=== PATIENT | female | born 1955 | race Caucasian/White ===

== ENCOUNTER 2017-02-25 16:20 | Inpatient (IN) | payer MEDICAID ==
[2017-02-25] MEDS ORDERED: NS 0.9% 1000 ML* 1,000 ML IV ONE (16:25)
[2017-02-25 16:48] LABS: Hematocrit 23 % (35-47); Mean Corpuscular HGB Conc 30 g/dl (31-36); Mean Corpuscular Hemoglobin 24 pg (27-31); Mean Corpuscular Volume 80 fL (80-97); Mean Platelet Volume 9 um3 (7.4-10.4); Red Blood Count 2.93 10^6/ul (4.0-5.4); Red Cell Distribution Width 15 % (10.5-15); White Blood Count 15.7 10^3/ul (3.5-10.8)
[2017-02-25 16:59] LABS: PCO2 Arterial 67 mmHg (35-45)
[2017-02-25 17:02] LABS: ALT 13 U/L (7-52); AST 15 U/L (13-39); Albumin 3.5 g/dL (3.2-5.2); Alkaline Phosphatase 58 U/L (34-104); Anion Gap 6 mmol/L (2-11); BUN/Creatinine Ratio 21.8 (8-20); Blood Urea Nitrogen 12 mg/dL (6-24); CO2 Carbon Dioxide 31 mmol/L (22-32); Calcium 8.2 mg/dL (8.6-10.3); Chloride 96 mmol/L (101-111); Creatine Kinase 36 U/L (10-223); EGFR African American 143.6 (>60); EGFR Non-African American 111.6 (>60); Globulin 2.5 g/dL (2-4); Glucose 162 mg/dL (70-100); Magnesium 1.7 mg/dL (1.9-2.7); Potassium 3.4 mmol/L (3.5-5.0); Sodium 133 mmol/L (133-145)
--- NOTE | 2017-02-25 17:11 | RAD ---
INDICATION: Syncope. COMPARISON: There are no prior studies available for comparison. TECHNIQUE: 2 portable films of the chest were obtained. FINDINGS: The heart appears moderately enlarged. The lungs are clear. No pleural effusion is seen. IMPRESSION: CARDIOMEGALY.
[2017-02-25 17:15] LABS: Alcohol < 10 mg/dL (<10)
--- NOTE | 2017-02-25 17:22 | RAD ---
INDICATION: Syncope. COMPARISON: There are no prior studies available for comparison. TECHNIQUE: Contiguous axial sections of the brain were obtained from the skull base to the vertex without contrast. FINDINGS: The ventricles, cisterns and sulci are within normal limits. No significant focal abnormality or mass effect is seen. There is no evidence for hemorrhage. No significant focal osseous abnormality is seen. The visualized portion of the paranasal sinuses and mastoid air cells appear clear. IMPRESSION: NO EVIDENCE FOR ACUTE INTRACRANIAL ABNORMALITY.
[2017-02-25 17:25] LABS: TSH (Thyroid Stimulating Horm) 0.55 mcIU/mL (0.34-5.60)
[2017-02-25] MEDS ORDERED: Magnesium Sulfate 1 GM IV* 1 GM/100 ML BAG IV ONE (17:46)
[2017-02-25 17:55] LABS: Venous Bicarbonate HCO3 28.9 mmol/L (24-28)
[2017-02-25 17:57] LABS: Ammonia 30 mol/L (16-53)
[2017-02-25 18:02] LABS: B Type Natriuretic Peptide 94 pg/mL
[2017-02-25] MEDS: KCL 20 MEQ/100 ML IVPREMIX* 20 MEQ/100 ML BAG IV SCH ×2 (20:26→22:29)
[2017-02-25] MEDS: NS 0.9% 1000 ML* 1,000 ML IV SCH (20:26)
[2017-02-25 21:14] LABS: Urine Bacteria Absent (Absent); Urine Bilirubin Negative (Negative); Urine Glucose Negative (Negative); Urine Nitrite Negative (Negative)
[2017-02-25 21:27] LABS: Benzodiazepine Urine Screen None Detected (None Detect)
[2017-02-25] MEDS: Metoprolol Tartrate TAB* 50 mg PO SCH (21:43)
[2017-02-25] MEDS: Famotidine IV* 10 MG/ML 2 ML (20 mg) IV SCH (21:50)
--- NOTE | 2017-02-25 21:56 | HP ---
CC: Dr. Hernandez * HISTORY AND PHYSICAL: DATE OF ADMISSION: 02/25/17 PRIMARY CARE PHYSICIAN: Dr. Hernandez CHIEF COMPLAINT: Syncope. 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 She stated that with her bowel movements, she would have bright red blood up to several times a day. Today, when she got up to walk to the bathroom, she started getting dizzy. She called her son who was in the apartment to help her and he lowered her to the floor; subsequently she lost consciousness for a few seconds. She denies any shortness of breath or chest pain. When she came into the ED, she was hypoxemic and required 5 L of oxygen via nasal cannula. Her ABG showed respiratory acidosis. Her hemoglobin was 7 and she was heme-positive stool. She is going to be admitted to the intensive care unit with a diagnosis of anemia, GI bleed, respiratory acidosis. PAST MEDICAL HISTORY: 1. Hypertension. 2. History of hyperthyroidism as per patient. 3. History of tachycardia due to above. 4. COPD, oxygen dependent on 2 L. 5. History of status post appendectomy. 6. History of GI bleed at [facility] in 2016 with colonoscopy, which result the patient does not recall. MEDICATIONS: Include: 1. [place] 5/325 mg 1 tablet up to 4 times a day p.r.n. 2. Furosemide 40 mg daily. 3. Metoprolol tartrate 50 mg b.i.d. 4. Diltiazem ER 360 mg daily. ALLERGIES: No known drug allergies. FAMILY HISTORY: Mother and dad with history of heart disease late in life. They both in their 80s. SOCIAL HISTORY: The patient has a history of 45-pack year smoking, she quit in 2013. She denies any alcohol or drug use. She lives alone and her daughter, Rain Pickett, is her surrogate. Rain's phone number is [phone]. REVIEW OF SYSTEMS: Please see history of present illness. The patient lives alone. Ambulates without support. She had no problems with recent shortness of breath or chest pain. She denies any abdominal pain. All the remaining 14 systems were reviewed with the patient and were otherwise negative. PHYSICAL EXAMINATION GENERAL: The patient is a very pleasant 61-year-old morbidly obese female who is in no acute distress. The patient is alert, awake, and oriented x3. VITAL SIGNS: Blood pressure 103/52, heart rate of 67 and regular, respiratory rate 20, oxygen saturation 91% on 5 L oxygen nasal cannula, temperature 97.1. HEENT: Head atraumatic, normocephalic. Eyes: Pupils equal, reactive to light and accommodation. Oropharynx clear. Mucosa moist. NECK: Supple. No JVD. No bruits bilaterally. RESPIRATORY: Clear to auscultation bilaterally. CARDIOVASCULAR: Regular rate and rhythm. No murmur. ABDOMEN: Soft, nontender. Bowel sounds present in all 4 quadrants. EXTREMITIES: There is trace bilateral pedal edema. Pulses are +2 bilaterally. No clubbing or cyanosis. NEUROLOGIC EVALUATION: Speech clear. Cranial nerves II through XII are grossly intact. Motor strength is 5/5 bilaterally. PSYCHIATRIC EVALUATION: Oriented x3 with no evidence of anxiety or depression. LABORATORY DATA: Shows ABG with pH of 7.29, pCO2 of 67, pO2 72 and bicarb of 28. A repeat VBG 3 hours later showed pH of 7.25, pCO2 of 79, pO2 of 21, and bicarb of 28. CBC: White blood cell count of 15.7, hemoglobin of 7.0, hematocrit of 23, and platelets of 176. INR is 1.03. Sodium was 132, potassium of 3.4, chloride 96, carbon dioxide 31, BUN 12, creatinine 0.55. Liver function tests were unremarkable. Troponin of 0. TSH of 0.55. Portable chest x-ray, impression: "Cardiomegaly." Brain CT, impression: "No evidence of acute intracranial abnormality." ASSESSMENT AND PLAN: A 61-year-old female with history of recent rectal bleeding who presents with syncope. 1. In regards to patient's GI bleeding, it appears to be lower. It is painless , most likely diverticular. The patient apparently had a similar episode when she was hospitalized at [facility] in 2016. We will obtain medical records from this hospital stay. We will ask Dr. Chin to see the patient in consultation. The patient is going to be placed on clear liquid diet, Pepcid b.i.d. IV. We will continue to follow her H and H levels. Due to her acute blood loss anemia due to GI bleed, the patient is going to be transfused 2 units of packed red blood cells. 2. In regards to patient's syncope, the patient has mild respiratory acidosis and she is also significantly anemic. I suspect her syncope was due to orthostasis and GI bleed. Nevertheless, the patient is going to be placed on a telemetry monitored bed. We will follow up with her troponins. 3. In regards to patient's respiratory acidosis, it appears to have progressed according to her VBG. Despite that, the patient is oriented x3 and comfortable with 5 L. At this point, I will place her in the intensive care unit and place her on BiPAP for an hour. A repeat ABG is pending after the BiPAP was instituted for an hour. 4. In regards to patient's hypertension, the patient is going to be continued on her Cardizem and metoprolol. 5. Due to patient's low systolic blood pressures, her Lasix is going to be held. 6. For DVT prophylaxis, the patient is going to be placed on sequential compression devices. Anticoagulation is contraindicated due to current GI bleed. 7. The patient's code status is full. Her surrogate is her daughter, Rain. TIME SPENT: Approximately 65 minutes was spent on admission of this patient, more than half the time was spent [id number] with the patient during the interview and physical exam. [id number]/[facility] #: [id number] MTDSerena
[2017-02-25 22:01] LABS: Hematocrit 21 % (35-47)
[2017-02-25 22:10] LABS: Comments Flag Yes
[2017-02-25 22:13] LABS: Hemoglobin 6.4 g/dl (12.0-16.0)
[2017-02-25 22:15] LABS: PCO2 Arterial 68 mmHg (35-45)
[2017-02-26] MEDS ORDERED: Ondansetron INJ* 2 MG/ML VIAL ONE (00:35)
[2017-02-26] MEDS: Ondansetron INJ* 2 MG/ML VIAL IV PRN ×3 (00:37→16:57)
[2017-02-26 03:33] LABS: Hematocrit 19 % (35-47); Mean Corpuscular HGB Conc 31 g/dl (31-36); Mean Corpuscular Hemoglobin 25 pg (27-31); Mean Corpuscular Volume 81 fL (80-97); Mean Platelet Volume 9 um3 (7.4-10.4); Red Cell Distribution Width 15 % (10.5-15); White Blood Count 14.1 10^3/ul (3.5-10.8)
[2017-02-26 03:50] LABS: Add Diff/Slide Review? Slide Review Added; Comments Flag Yes
[2017-02-26 04:04] LABS: BUN/Creatinine Ratio 22.4 (8-20); EGFR Non-African American 127.6 (>60); Potassium 4.2 mmol/L (3.5-5.0)
[2017-02-26 04:07] LABS: Troponin I 0.01 ng/mL (<0.04)
[2017-02-26] MEDS: NS 0.9% 1000 ML* 1,000 ML IV SCH (05:09)
[2017-02-26] MEDS: Metoprolol Tartrate TAB* 50 mg PO SCH ×2 (08:58→20:48)
[2017-02-26] MEDS: Diltiazem CD CAP* 180 MG PO SCH (08:58)
[2017-02-26] MEDS: Famotidine IV* 10 MG/ML 2 ML (20 mg) IV SCH ×2 (08:58→20:45)
[2017-02-26 09:21] LABS: Hematocrit 21 % (35-47)
[2017-02-26 09:41] LABS: Comments Flag Yes
[2017-02-26 09:46] LABS: Hemoglobin 6.4 g/dl (12.0-16.0)
--- NOTE | 2017-02-26 10:01 | PN ---
Subjective Date of Service: 02/26/17 Interval History: . Interviewed and examined patient at bedside; Discussed case with Dr. Wellington ; Reviewed previous notes and radiology results; I spoke with patient at the bedside this AM with alejandro, METEOROLOGICAL OBSERVER. I reviewed her Hgb levels which are low and clearly affecting her ability ot ambulate and ventilate effectively. She seems tired as I speak with her. She has been refusing her blood transfusion. I had a vigorous discussion with the patient in which I implored she accept a packed red blood (prbc) cell transfusion. She denied, repeatedly, and asked for "something else". I explained there was not "something else" that would substitute for a packed red cell transfusion. I explained that her life was at risk if she continued to hemorrhage. GI will be seeing her shortly, but her current hgb concentration constituted a danger, especially considering her baseline pulmonary condition (O2 dependent COPD). I reinforced that her life was at risk and she understood and accepted that fact , and still wished NOT to receive a transfusion. I asked that she think about this and that I would speak with her again and that her RN could let me know if she changed her mind. . Family History: Unchanged from Admission Social History: Unchanged from Admission Past Medical History: Unchanged from Admission Objective Active Medications: . Acetaminophen (Tylenol Tab*) 650 mg PO Q4H PRN PRN Reason: FEVER/PAIN Diltiazem HCl (Cardizem Cd Cap*) 360 mg PO DAILY [facility] Last Admin: 02/26/17 08:58 Dose: 360 mg Famotidine (Pepcid Iv*) 20 mg IV BID [facility] Last Admin: 02/26/17 08:58 Dose: 20 mg Sodium Chloride (Ns 0.9% 1000 Ml*) 1,000 mls @ 125 mls/hr IV PER RATE [facility] Last Admin: 02/26/17 05:09 Dose: 125 mls/hr Metoprolol Tartrate (Lopressor Tab*) 50 mg PO BID [facility] Last Admin: 02/26/17 08:58 Dose: 50 mg Morphine Sulfate (Morphine Inj (Syringe)*) 1 mg IV Q4H PRN PRN Reason: PAIN Ondansetron HCl (Zofran Inj*) 4 mg IV Q6H PRN PRN Reason: NAUSEA Last Admin: 02/26/17 00:37 Dose: 4 mg . Vital Signs 02/25/17 02/25/17 02/25/17 17:46 18:00 18:30 Temperature Pulse Rate 76 74 79 Respiratory 22 20 18 Rate Blood Pressure 118/73 120/68 117/70 (mmHg) O2 Sat by Pulse 96 95 96 Oximetry 02/25/17 02/25/17 02/25/17 19:00 19:30 19:38 Temperature Pulse Rate 85 83 86 Respiratory 21 20 22 Rate Blood Pressure 133/75 141/78 (mmHg) O2 Sat by Pulse 96 98 96 Oximetry Oxygen Devices in Use Now: Nasal Cannula Appearance: pale, weak Eyes: No Scleral Icterus Ears/Nose/Mouth/Throat: Clear Oropharnyx Neck: Trachea Midline Respiratory: Symmetrical Chest Expansion and Respiratory Effort, - - distant BS c/w COPD Cardiovascular: NL Sounds; No Murmurs; No JVD Abdominal: NL Sounds; No Tenderness; No Distention, - - obese Lymphatic: No Cervical Adenopathy Extremities: No Clubbing, Cyanosis, - - palor noted, Skin: No Rash or Ulcers Neurological: Alert and Oriented x 3 Lines/Tubes/Other Access: Clean, Dry and Intact Peripheral IV Nutrition: Taking PO's Result Diagrams: 02/26/17 09:00 02/26/17 03:19 Microbiology and Other Data: Microbiology 02/25/17 20:56 Nasal Screen MRSA (PCR)(SERGIO) - Final Nasal Mrsa Negative Assess/Plan/Problems-Billing . Assessment: 61 year old female with lower GI bleed and severe, symptomatic anemia. recommendation for PRBC transfusion, though patient declines, clearly accepting the risk this declination imposes on her, up to and including her life. A vigorous discussion was had with the patient at [facility] the [facility] and she stands adamantly opposed to PRBC at this time. I asked her to continue reconsidering the recommendation for PRBC tranfusion. . - Patient Problems (1) Lower GI hemorrhage Current Visit: Yes Status: Acute Priority: High Code(s): K92.2 - GASTROINTESTINAL HEMORRHAGE, UNSPECIFIED Comment: - GI consult requested - 2 PIV - IVF ongoing - PRBC ordered, though patient refuses - NPO x clears for procedure (scope) if GI decides. - ICU monitoring for now. (2) Syncope and collapse Current Visit: Yes Status: Acute Priority: High Code(s): R55 - SYNCOPE AND COLLAPSE Comment: - undoubtedly secondary to IV volume and severe anemia. (3) Symptomatic anemia Current Visit: Yes Status: Acute Priority: High Code(s): D64.9 - ANEMIA, UNSPECIFIED Comment: - as above. (4) Hypercapnic respiratory failure Current Visit: Yes Status: Acute Priority: High Code(s): J96.92 - RESPIRATORY FAILURE, UNSPECIFIED WITH HYPERCAPNIA Comment: - thought secondary to poor oxygen tension and poor respiratory/ventilatory function. - systemic acidosis indicates this is ON TOP of any chronic retention the patient may suffer secondary to her COPD. - OHS --> a possibility - regarless of cause, patient also declines BiPAP... (5) Morbid obesity with BMI of 45.0-49.9, adult Current Visit: Yes Status: Acute Priority: High Code(s): E66.01 - MORBID ( SEVERE) OBESITY DUE TO EXCESS CALORIES; Z68.42 - BODY MASS INDEX (BMI) 45.0-49.9 , ADULT Comment: - perhaps obesity hypoventialtion on top of COPD and severe anemia. (6) COPD (chronic obstructive pulmonary disease) Current Visit: Yes Status: Acute Priority: High Code(s): J44.9 - CHRONIC OBSTRUCTIVE PULMONARY DISEASE, UNSPECIFIED Comment: - Impaired pulmonary function at baseline
--- NOTE | 2017-02-26 11:15 | ED ---
Lazarus Huitron Auryana, scribed for Amando Vallejo MD on 02/25/17 at 1705 . Syncope/Near Syncope - HPI Summary HPI Summary: 61 year old female presents to the ED s/p syncopal episode today. Patient reports that she was getting up to go to the bathroom at the time of the episode. She reports that she hasn't felt well for the last few days. Patient reports (+) LOC but denies any CP. PMHx is significant for HTN, appendectomy, and thyroid issues - no history of HLD, or [place]. SHx is not significant for tobacco - former smoker, alcohol, or any recreational drugs use. FHx is significant for DM, CAD, and HTN. - History Of Current Complaint Chief Complaint: EDSyncope Time Seen by Provider: 02/25/17 16:36 Hx Obtained From: Patient, EMS Onset/Duration: Sudden Onset Timing: Intermittent Episode Lasting Context: Unwitnessed Activity At Onset: Other - upon standing/walking Associated Head Trauma: No Associated Signs And Symptoms: Other - LOC Frequency: Episodes x___ - 1 - Allergies/Home Medications Allergies/Adverse Reactions: Allergies Allergy/AdvReac Type Severity Reaction Status Date / Time No Known Allergies Allergy Unverified 02/25/17 19:10 Home Medications: Home Medications Diltiazem HCl Extended Release [Diltiazem HCl ER] 360 mg PO DAILY 02/25/17 [ History Confirmed 02/25/17] Furosemide TAB* [Lasix TAB*] 40 mg PO DAILY 02/25/17 [History Confirmed 02/25/17 ] HYDROcodone/ACETAMIN 5-325 MG* [[place] 5-325 TAB*] 1 tab PO BID PRN MDD 2 tabs [History Confirmed 02/25/17] Metoprolol Tartrate TAB* [Lopressor TAB*] 50 mg PO BID 02/25/17 [History Confirmed 02/25/17] PMH/Surg Hx/FS Hx/Imm Hx Endocrine/Hematology History: Reports: Other Endocrine/Hematological Disorders - thyroid issues Cardiovascular History: Reports: Hx Hypertension - Surgical History Surgery Procedure, Year, and Place: appendectomy - Family History Known Family History: Positive: Cardiac Disease, Hypertension, Diabetes - Social History Alcohol Use: None Hx Substance Use: No Substance Use Type: Reports: None Hx Tobacco Use: Yes Smoking Status (MU): Former Smoker Review of Systems Constitutional: Negative Negative: Fever Eyes: Negative ENT: Negative Cardiovascular: Negative Negative: Chest Pain Respiratory: Negative Gastrointestinal: Negative Genitourinary: Negative Musculoskeletal: Negative Skin: Negative Positive: Syncope - with LOC Psychological: Normal All Other Systems Reviewed And Are Negative: Yes Physical Exam - Summary Physical Exam Summary: VITAL SIGNS: Reviewed. GENERAL: Patient is a well-developed and obese female who is lying comfortable in the stretcher. Patient is not in any acute respiratory distress. Patient is lethargic. HEAD AND FACE: No signs of trauma. No ecchymosis, hematomas or skull depressions. No sinus tenderness. EYES: PERRLA, EOMI x 2, No injected conjunctiva, no nystagmus. EARS: Hearing grossly intact. Ear canals and tympanic membranes are within normal limits. MOUTH: Oropharynx within normal limits. NECK: Supple, trachea is midline, no adenopathy, no JVD, no carotid bruit, no c- spine tenderness, neck with full ROM. CHEST: Symmetric, no tenderness at palpation LUNGS: Clear to auscultation bilaterally. No wheezing or crackles. CVS: Regular rate and rhythm, S1 and S2 present, no murmurs or gallops appreciated. ABDOMEN: Soft, non-tender, and obese. No signs of distention. No rebound no guarding, and no masses palpated. Positive bowel sounds. EXTREMITIES: FROM in all major joints, no cyanosis or clubbing. NO EDEMA. NEURO: Alert and oriented x 3. No acute neurological deficits. Speech is normal and follows commands. SKIN: Dry and warm. RECTAL EXAM: normal sphincter tone, no melena, no gross blood. GCS - 15 Triage Information Reviewed: Yes Vital Signs On Initial Exam: Initial Vitals Temp Pulse Resp BP Pulse Ox 97.1 F 67 20 103/52 98 02/25/17 16:24 02/25/17 16:24 02/25/17 16:24 02/25/17 16:24 02/25/17 16:24 Vital Signs Reviewed: Yes Diagnostics - Vital Signs Vital Signs Temp Pulse Resp BP Pulse Ox 02/25/17 17:12 73 16 91 02/25/17 16:56 72 18 95 02/25/17 16:24 97.1 F 67 20 103/52 98 - Laboratory Lab Results: Lab Results 02/25/17 02/25/17 02/25/17 Range/Units 14:55 16:30 16:30 WBC 15.7 H (3.5-10.8) 10^3/ul RBC 2.93 L (4.0-5.4) 10^6/ul Hgb 7.0 L (12.0-16.0) g/dl Hct 23 L (35-47) % MCV 80 (80-97) fL MCH 24 L (27-31) pg MCHC 30 L (31-36) g/dl RDW 15 (10.5-15) % Plt Count 276 (150-450) 10^3/ul MPV 9 (7.4-10.4) um3 Neut % (Auto) 78.1 (38-83) % Lymph % (Auto) 12.5 L (25-47) % [place] % (Auto) 7.1 (1-9) % Eos % (Auto) 1.2 (0-6) % Baso % (Auto) 1.1 (0-2) % Absolute Neuts (auto) 12.3 H (1.5-7.7) 10^3/ul Absolute Lymphs (auto) 2.0 (1.0-4.8) 10^3/ul Absolute Monos (auto) 1.1 H (0-0.8) 10^3/ul Absolute Eos (auto) 0.2 (0-0.6) 10^3/ul Absolute Basos (auto) 0.2 (0-0.2) 10^3/ul Absolute Nucleated RBC 0.01 10^3/ul Nucleated RBC % 0 INR (Anticoag Therapy) (0.89-1.11) Patient Temperature Not Reportable ABG pH 7.29 L (7.35-7.45) ABG pCO2 67 H (35-45) mmHg ABG pO2 72 L (80-100) mmHg ABG HCO3 28.7 (19-31) mmol/L ABG O2 Saturation 96.2 (95-98) % ABG Base Excess 4.9 H (-2.0-2.0) Respiration Rate Not Reportable O2 Delivery Device 5lnc Ventilator Type Not Reportable Vent Mode Not Reportable FiO2 Not Reportable Inspiratory Time Not Reportable PEEP Not Reportable Pressure Support Not Reportable Pressure Control Not Reportable EPAP Not Reportable IPAP Not Reportable BiPAP Not Reportable Sodium 133 (133-145) mmol/L Potassium 3.4 L (3.5-5.0) mmol/L Chloride 96 L (101-111) mmol/L Carbon Dioxide 31 (22-32) mmol/L Anion Gap 6 (2-11) mmol/L BUN 12 (6-24) mg/dL Creatinine 0.55 (0.51-0.95) mg/dL Est GFR ( Amer) 143.6 (>60) Est GFR (Non-Af Amer) 111.6 (>60) BUN/Creatinine Ratio 21.8 H (8-20) Glucose 162 H (70-100) mg/dL Lactic Acid (0.5-2.0) mmol/L Calcium 8.2 L (8.6-10.3) mg/dL Magnesium 1.7 L (1.9-2.7) mg/dL Total Bilirubin 0.20 (0.2-1.0) mg/dL AST 15 (13-39) U/L ALT 13 (7-52) U/L Alkaline Phosphatase 58 (34-104) U/L Ammonia (16-53) mol/L Total Creatine Kinase 36 (10-223) U/L Troponin I 0.00 (<0.04) ng/mL B-Natriuretic Peptide ( - 100) pg/mL Total Protein 6.0 L (6.4-8.9) g/dL Albumin 3.5 (3.2-5.2) g/dL Globulin 2.5 (2-4) g/dL Albumin/Globulin Ratio 1.4 (1-3) TSH 0.55 (0.34-5.60) mcIU/mL Serum Alcohol < 10 (<10) mg/dL Blood Type Antibody Screen Crossmatch 02/25/17 02/25/17 02/25/17 Range/Units 16:30 16:30 17:32 WBC (3.5-10.8) 10^3/ul RBC (4.0-5.4) 10^6/ul Hgb (12.0-16.0) g/dl Hct (35-47) % MCV (80-97) fL MCH (27-31) pg MCHC (31-36) g/dl RDW (10.5-15) % Plt Count (150-450) 10^3/ul MPV (7.4-10.4) um3 Neut % (Auto) (38-83) % Lymph % (Auto) (25-47) % [place] % (Auto) (1-9) % Eos % (Auto) (0-6) % Baso % (Auto) (0-2) % Absolute Neuts (auto) (1.5-7.7) 10^3/ul Absolute Lymphs (auto) (1.0-4.8) 10^3/ul Absolute Monos (auto) (0-0.8) 10^3/ul Absolute Eos (auto) (0-0.6) 10^3/ul Absolute Basos (auto) (0-0.2) 10^3/ul Absolute Nucleated RBC 10^3/ul Nucleated RBC % INR (Anticoag Therapy) 1.03 (0.89-1.11) Patient Temperature ABG pH (7.35-7.45) ABG pCO2 (35-45) mmHg ABG pO2 (80-100) mmHg ABG HCO3 (19-31) mmol/L ABG O2 Saturation (95-98) % ABG Base Excess (-2.0-2.0) Respiration Rate O2 Delivery Device Ventilator Type Vent Mode FiO2 Inspiratory Time PEEP Pressure Support Pressure Control EPAP IPAP BiPAP Sodium (133-145) mmol/L Potassium (3.5-5.0) mmol/L Chloride (101-111) mmol/L Carbon Dioxide (22-32) mmol/L Anion Gap (2-11) mmol/L BUN (6-24) mg/dL Creatinine (0.51-0.95) mg/dL Est GFR ( Amer) (>60) Est GFR (Non-Af Amer) (>60) BUN/Creatinine Ratio (8-20) Glucose (70-100) mg/dL Lactic Acid 1.5 (0.5-2.0) mmol/L Calcium (8.6-10.3) mg/dL Magnesium (1.9-2.7) mg/dL Total Bilirubin (0.2-1.0) mg/dL AST (13-39) U/L ALT (7-52) U/L Alkaline Phosphatase (34-104) U/L Ammonia 30 (16-53) mol/L Total Creatine Kinase (10-223) U/L Troponin I (<0.04) ng/mL B-Natriuretic Peptide 94 ( - 100) pg/mL Total Protein (6.4-8.9) g/dL Albumin (3.2-5.2) g/dL Globulin (2-4) g/dL Albumin/Globulin Ratio (1-3) TSH (0.34-5.60) mcIU/mL Serum Alcohol (<10) mg/dL Blood Type Antibody Screen Crossmatch 02/25/17 Range/Units 17:32 WBC (3.5-10.8) 10^3/ul RBC (4.0-5.4) 10^6/ul Hgb (12.0-16.0) g/dl Hct (35-47) % MCV (80-97) fL MCH (27-31) pg MCHC (31-36) g/dl RDW (10.5-15) % Plt Count (150-450) 10^3/ul MPV (7.4-10.4) um3 Neut % (Auto) (38-83) % Lymph % (Auto) (25-47) % [place] % (Auto) (1-9) % Eos % (Auto) (0-6) % Baso % (Auto) (0-2) % Absolute Neuts (auto) (1.5-7.7) 10^3/ul Absolute Lymphs (auto) (1.0-4.8) 10^3/ul Absolute Monos (auto) (0-0.8) 10^3/ul Absolute Eos (auto) (0-0.6) 10^3/ul Absolute Basos (auto) (0-0.2) 10^3/ul Absolute Nucleated RBC 10^3/ul Nucleated RBC % INR (Anticoag Therapy) (0.89-1.11) Patient Temperature ABG pH (7.35-7.45) ABG pCO2 (35-45) mmHg ABG pO2 (80-100) mmHg ABG HCO3 (19-31) mmol/L ABG O2 Saturation (95-98) % ABG Base Excess (-2.0-2.0) Respiration Rate O2 Delivery Device Ventilator Type Vent Mode FiO2 Inspiratory Time PEEP Pressure Support Pressure Control EPAP IPAP BiPAP Sodium (133-145) mmol/L Potassium (3.5-5.0) mmol/L Chloride (101-111) mmol/L Carbon Dioxide (22-32) mmol/L Anion Gap (2-11) mmol/L BUN (6-24) mg/dL Creatinine (0.51-0.95) mg/dL Est GFR ( Amer) (>60) Est GFR (Non-Af Amer) (>60) BUN/Creatinine Ratio (8-20) Glucose (70-100) mg/dL Lactic Acid (0.5-2.0) mmol/L Calcium (8.6-10.3) mg/dL Magnesium (1.9-2.7) mg/dL Total Bilirubin (0.2-1.0) mg/dL AST (13-39) U/L ALT (7-52) U/L Alkaline Phosphatase (34-104) U/L Ammonia (16-53) mol/L Total Creatine Kinase (10-223) U/L Troponin I (<0.04) ng/mL B-Natriuretic Peptide ( - 100) pg/mL Total Protein (6.4-8.9) g/dL Albumin (3.2-5.2) g/dL Globulin (2-4) g/dL Albumin/Globulin Ratio (1-3) TSH (0.34-5.60) mcIU/mL Serum Alcohol (<10) mg/dL Blood Type O Positive Antibody Screen Negative Crossmatch See Detail Result Diagrams: 02/26/17 09:00 02/26/17 03:19 Lab Statement: Any lab studies that have been ordered have been reviewed, and results considered in the medical decision making process. - Radiology CXR Xray Interpretation: Positive (See Comments) - IMPRESSION: CARDIOMEGALY. Radiology Interpretation Completed By: Radiologist - CT BRAIN CT Interpretation: No Acute Changes - IMPRESSION: NO EVIDENCE FOR ACUTE INTRACRANIAL ABNORMALITY. CT Interpretation Completed By: Radiologist - EKG 16:30 EKG Interpretation: NSR, 67 bpm, w/o ST elevation Course/Dx Assessment/Plan: 61 year old female presents to the ED s/p syncopal episode today. Patient reports that she was getting up to go to the bathroom at the time of the episode. She reports that she hasn't felt well for the last few days. Patient reports (+) LOC but denies any CP. PMHx is significant for HTN, appendectomy, and thyroid issues - no history of HLD, or [place]. SHx is not significant for tobacco - former smoker, alcohol, or any recreational drugs use. FHx is significant for DM, CAD, and HTN. Test results show WBC 15.7, Hemoglobin 7, hematocrit 23, which is consistent with normal chronic normocytic anemia. pH 7.29, pCO2 67 and pO2 72, Glucose 162 and potassium 2.4. Patient is AOx3, even though the patient has hypercapnia, so we ordered a BiPAP to treat the hypercabnia. At this time I did not think the patient should be intubated because she is AOx3. CXR showed cardiomegaly, and brain CT showed no evidence for acute intracranial abnormality. The patient is also Guaiac positive. In the ED course, patient was given IV fluids. I discussed my PE and test findings with Jonas Orona, who discussed with Dr. Phelan, and they accepted admission. At this time the patient is hemodynamically stable and AOx3. Dr. Phelan will start with the transfusion for this patient - Diagnoses Differential Diagnosis/HQI/PQRI: Positive: Coronary Artery Disease, GI Bleed, Seizure, Transient Ischemic Attack, Vasovagal Episode Provider Diagnoses: GI bleed, Syncope, Symptomatic anemia Discharge - Discharge Plan Condition: Stable Disposition: OTHER Discharge Disposition Comment: signout to DR. KUMAR AT 19:00 PENDING IMAGING, DISPOSITION AND DIAGNOSIS The documentation as recorded by the Lazarus juan Auryana accurately reflects the service I personally performed and the decisions made by me, Amando Vallejo MD.
[2017-02-26] MEDS ORDERED: Ferrous Sulfate LIQ* 300 MG/5 ML UDC PO SCH (14:00)
[2017-02-26] MEDS ORDERED: Ferric Gluconate IV 25 MG in NS 0.9% 50 ML TEST DOSE IVPB ONE (15:30)
[2017-02-26 15:41] LABS: Hematocrit 20 % (35-47)
[2017-02-26 15:48] LABS: Comments Flag Yes
[2017-02-26] MEDS ORDERED: Ferric Gluconate IV* 100 MG in NS 100 ML - AFTER TEST DOSE IVPB ONE (16:30)
[2017-02-26] MEDS: Acetaminophen TAB* 325 MG PO PRN (16:57)
--- NOTE | 2017-02-26 17:48 | CONS ---
GASTROENTEROLOGY CONSULT: DATE: 02/26/17 REFERRING PHYSICIANS: Amando Cristobal, Blair Phelan. REASON FOR CONSULTATION: Lower GI bleed HISTORY: This 61-year-old woman with morbid obesity and COPD, on home O2, began noting blood in the stool about 10 days ago. She says it was intermittent , but then seemed to increase 3 to 4 days ago. She thought it was from hemorrhoids initially, but then was not so sure. She passed out in her bedroom yesterday and called her son who was in the yard. She was brought to [facility] and according to her she says they thought it was a heart attack , so sent her here. On arrival, her hemoglobin had been in the 6s. She was set up to be transfused, but then when she arrived in the intensive care unit turned it down. She says she was raised as Roman Catholic, but no longer is , but just finds the concept of someone else's blood "icky." She really does not want a transfusion and has had the risks of severe anemia described to her by the ICU staff, Dr Phelan, Dr Freeman, and now myself. Her only complaint right now is nausea. She has not really had a bowel movement since coming here. A year and a half ago, she had BRBPR bleeding, it was more torrential and overt and she went to [facility] passing copious amounts of blood and was transferred to [facility] where she underwent upper endoscopy which was basically normal and then colonoscopy which showed diverticulosis widespread though no actual blood was seen There were a couple of small polyps, but the prep was poor. She was already bleeding and so no biopsies or excisions were done. Bleeding seemed to stop. In the ensuing year and a half, she says she has been okay. She has not been taking any iron saying "I just figure I built myself up". Her hemoglobin went down to the mid 9s at that time and no lower during that stay. It was stated in the [facility] chart that she might accept transfusion "in life-threatening circumstances." PAST MEDICAL HISTORY: 1. Morbid obesity. 2. Hypertension. 3. COPD, on O2 at home. 4. History of hyperthyroidism. 5. Status post appendectomy, remote past. 6. Chronic pain. MEDICATIONS: At home, she denies any NSAIDs. She takes diltiazem ER 360, metoprolol 50 bid, furosemide 40, and [place] 5/325 2-4 times a day. SOCIAL HISTORY: She says her mother was Roman Catholic and though raised that way does not consider herself one. The mother lost a lot of blood during a car accident and refused the transfusion and that seemed to work out for her which has influenced the patient's thinking. She quit smoking in 2013. She is not a drinker. She has been following with Dr Joseph Hernandez for many years. She has 5 children son Swapnil and daughter Katie pitts REVIEW OF SYSTEMS: No history of seizures, prior syncope, CVA, visual problems , hemoptysis, SC. Atrial fibrillation is listed in [facility] [employer] note and tachycardia without further detail in the history and physical here. There is no history of fever or infection. EXAM: She is alone in the room at 2:30 PM and is a morbidly obese, sallow complected woman sitting on the commode. Rhythm is sinus. HEENT exam is unremarkable. She has no adenopathy. Lungs are clear with diminished breath sounds symmetrically. HEENT exam is otherwise unremarkable. Her abdomen is obese, soft, and nontender. She is hyperventilating slightly and is complaining of nausea. Extremities show pitting edema to the mid knees. IMPRESSION: This 61-year-old woman presents with a clinical lower GI bleed ( BUN 12 and then on repeat 11). Most likely, it is diverticular in nature as was the presumption in Sep 2015. Although her prep in September 2015 was not superb a polypoid lesion now big enough to cause bleeding of this nature is unlikely. She probably had a compromised baseline hemoglobin recently given that bleeding event and lack of many iron replacement since then. At the moment she is not actively bleeding so no endoscopy is a priority given the full w/u 18 months ago. As regards to willingness to accept transfusions, she says she is not a Jehov[employer]' s Witness, but when I states is making decisions consistent with that she nods her head in agreement. Several examples of irreversible complications including the cerebral and ocular circulation and the heart are brought up. The nausea may be related to anemia was also mentioned. She is undaunted and unconvinced. I told her should she begin bleeding rapidly she could rapidly decompensate where a colon prep, anesthesia or surgery are unfeasible. We can give her some IV iron and she is open to taking that. Engaging family and friends may help. Addendum: the next day with her two local children present when asked about a transfusion she turned the question over to them - when they asked her she stuck with "I'll have to make up my mind at the time" . The likely unfeasibility and additional risk of such an approach was reviewed and she did not make any assenting statement. [id number]/[facility] #: [id number] KRISTINE
[2017-02-26] MEDS ORDERED: PROCHLORPERAZINE INJ 5 MG/ML 2 ML VIAL IV PRN (20:22)
[2017-02-27] MEDS: NS 0.9% 1000 ML* 1,000 ML IV SCH (00:13)
[2017-02-27 08:13] LABS: Venous Bicarbonate HCO3 30.5 mmol/L (24-28)
[2017-02-27 08:27] LABS: Comments Flag Yes; Hematocrit 22 % (35-47); Mean Corpuscular HGB Conc 30 g/dl (31-36); Mean Corpuscular Hemoglobin 25 pg (27-31); Mean Corpuscular Volume 81 fL (80-97); Mean Platelet Volume 9 um3 (7.4-10.4); Red Blood Count 2.77 10^6/ul (4.0-5.4); Red Cell Distribution Width 15 % (10.5-15); White Blood Count 17.5 10^3/ul (3.5-10.8)
[2017-02-27 08:28] LABS: Add Diff/Slide Review? Slide Review Added; Hemoglobin 6.8 g/dl (12.0-16.0)
[2017-02-27 08:29] LABS: BUN/Creatinine Ratio 16.7 (8-20); Calcium 8.4 mg/dL (8.6-10.3); EGFR Non-African American 130.6 (>60); Potassium 4.2 mmol/L (3.5-5.0)
[2017-02-27] MEDS: Morphine INJ* 2 MG/ML 1 ML SYRINGE IV PRN ×2 (08:37→16:29)
[2017-02-27] MEDS: Diltiazem CD CAP* 180 MG PO SCH (08:38)
[2017-02-27] MEDS: Metoprolol Tartrate TAB* 50 mg PO SCH ×2 (08:38→20:50)
[2017-02-27] MEDS: Famotidine IV* 10 MG/ML 2 ML (20 mg) IV SCH ×2 (08:38→20:51)
--- NOTE | 2017-02-27 15:48 | PN ---
Subjective Date of Service: 02/27/17 Interval History: . still tired and nauseous, very possibly from anemia. patient still resistant to PRBC, though will accept IV iron. SOB at baseline. PT consult ordered. Family History: Unchanged from Admission Social History: Unchanged from Admission Past Medical History: Unchanged from Admission Objective Active Medications: . Acetaminophen (Tylenol Tab*) 650 mg PO Q4H PRN PRN Reason: FEVER/PAIN Last Admin: 02/26/17 16:57 Dose: 650 mg Diltiazem HCl (Cardizem Cd Cap*) 360 mg PO DAILY [facility] Last Admin: 02/27/17 08:38 Dose: 360 mg Famotidine (Pepcid Iv*) 20 mg IV BID [facility] Last Admin: 02/27/17 08:38 Dose: 20 mg Sodium Chloride (Ns 0.9% 1000 Ml*) 1,000 mls @ 125 mls/hr IV PER RATE [facility] Last Admin: 02/27/17 00:13 Dose: 125 mls/hr Metoprolol Tartrate (Lopressor Tab*) 50 mg PO BID [facility] Last Admin: 02/27/17 08:38 Dose: 50 mg Morphine Sulfate (Morphine Inj (Syringe)*) 1 mg IV Q4H PRN PRN Reason: PAIN Last Admin: 02/27/17 08:37 Dose: 1 mg Ondansetron HCl (Zofran Inj*) 4 mg IV Q6H PRN PRN Reason: NAUSEA Last Admin: 02/26/17 16:57 Dose: 4 mg Prochlorperazine Edisylate (Compazine Inj*) 5 mg IV Q6H PRN PRN Reason: NAUSEA/VOMITING Last Admin: 02/26/17 20:45 Dose: 5 mg . Vital Signs 02/26/17 02/26/17 02/26/17 16:00 16:44 19:17 Temperature 97.3 F Pulse Rate 85 87 97 Respiratory 20 18 18 Rate Blood Pressure 135/53 126/51 (mmHg) O2 Sat by Pulse 94 98 96 Oximetry 02/26/17 02/26/17 02/26/17 19:20 20:00 23:57 Temperature 98.0 F Pulse Rate 109 100 103 Respiratory 19 24 Rate Blood Pressure 146/62 141/62 (mmHg) O2 Sat by Pulse 92 Oximetry Oxygen Devices in Use Now: Nasal Cannula Appearance: NAD, obese, dishevelled Eyes: No Scleral Icterus Ears/Nose/Mouth/Throat: - - poor dentition Neck: Trachea Midline Respiratory: - - distant BS, labored breathing Cardiovascular: RRR Abdominal: - - morbidly obese Lymphatic: No Cervical Adenopathy Extremities: No Edema Skin: No Rash or Ulcers Neurological: Alert and Oriented x 3 Lines/Tubes/Other Access: Clean, Dry and Intact Peripheral IV Nutrition: Taking PO's Result Diagrams: 02/27/17 08:02 02/27/17 08:02 Additional Lab and Data: . Microbiology and Other Data: Microbiology 02/25/17 20:56 Nasal Screen MRSA (PCR)(SERGIO) - Final Nasal Mrsa Negative Assess/Plan/Problems-Billing . Assessment: 61 year old female with lower GI bleed and severe, symptomatic anemia. recommendation for PRBC transfusion, though patient declines, clearly accepting the risk this declination imposes on her, up to and including her life. A vigorous discussion was had with the patient at the bedside and she remains adamantly opposed to PRBC at this time. I asked her to continue reconsidering the recommendation for PRBC tranfusion. . - Patient Problems (1) Lower GI hemorrhage Current Visit: Yes Status: Acute Priority: High Code(s): K92.2 - GASTROINTESTINAL HEMORRHAGE, UNSPECIFIED Comment: - GI consult appreciated - >=2 PIV - IVF ongoing - PRBC ordered, though patient refuses - Black to medical floor - Regular diet; no plan for colonoscopy while inpatient. (2) Syncope and collapse Current Visit: Yes Status: Acute Priority: High Code(s): R55 - SYNCOPE AND COLLAPSE Comment: - undoubtedly secondary to diminished IV volume and severe anemia. (3) Symptomatic anemia Current Visit: Yes Status: Acute Priority: High Code(s): D64.9 - ANEMIA, UNSPECIFIED Comment: - as above. (4) Hypercapnic respiratory failure Current Visit: Yes Status: Acute Priority: High Code(s): J96.92 - RESPIRATORY FAILURE, UNSPECIFIED WITH HYPERCAPNIA Comment: - thought secondary to poor oxygen tension and poor respiratory/ventilatory function. - systemic acidosis indicates this is ON TOP of any chronic retention the patient may suffer secondary to her COPD. - OHS --> a possibility - regarless of cause, patient also declines BiPAP... (5) Morbid obesity with BMI of 45.0-49.9, adult Current Visit: Yes Status: Acute Priority: High Code(s): E66.01 - MORBID ( SEVERE) OBESITY DUE TO EXCESS CALORIES; Z68.42 - BODY MASS INDEX (BMI) 45.0-49.9 , ADULT Comment: - perhaps obesity hypoventialtion on top of COPD and severe anemia. (6) COPD (chronic obstructive pulmonary disease) Current Visit: Yes Status: Acute Priority: High Code(s): J44.9 - CHRONIC OBSTRUCTIVE PULMONARY DISEASE, UNSPECIFIED Comment: - Impaired pulmonary function at baseline
[2017-02-28] MEDS: Morphine INJ* 2 MG/ML 1 ML SYRINGE IV PRN ×2 (00:25→04:39)
[2017-02-28] MEDS: Ondansetron INJ* 2 MG/ML VIAL IV PRN ×3 (00:31→20:45)
[2017-02-28 05:26] LABS: Hematocrit 23 % (35-47); Mean Corpuscular HGB Conc 30 g/dl (31-36); Mean Corpuscular Hemoglobin 24 pg (27-31); Mean Corpuscular Volume 80 fL (80-97); Mean Platelet Volume 9 um3 (7.4-10.4); Red Blood Count 2.81 10^6/ul (4.0-5.4); Red Cell Distribution Width 15 % (10.5-15); White Blood Count 17.5 10^3/ul (3.5-10.8)
[2017-02-28 05:39] LABS: Add Diff/Slide Review? Slide Review Added; Comments Flag Yes; Hemoglobin 6.8 g/dl (12.0-16.0)
[2017-02-28 05:56] LABS: BUN/Creatinine Ratio 22.2 (8-20); Calcium 8.6 mg/dL (8.6-10.3); EGFR Non-African American 140.7 (>60); Potassium 4.3 mmol/L (3.5-5.0)
[2017-02-28 06:21] LABS: Basophilic Stippling 1+; Hypochromasia 2+; Stomatocytes 1+
[2017-02-28] MEDS: Metoprolol Tartrate TAB* 50 mg PO SCH ×2 (09:11→20:50)
[2017-02-28] MEDS: Diltiazem CD CAP* 180 MG PO SCH (09:11)
[2017-02-28] MEDS: Famotidine IV* 10 MG/ML 2 ML (20 mg) IV SCH ×2 (09:11→20:50)
[2017-02-28] MEDS ORDERED: Furosemide IV* 10 MG/ML VIAL (40 MG) IV ONE (11:27)
--- NOTE | 2017-02-28 20:10 | PN ---
Subjective Date of Service: 02/28/17 Interval History: . patient's hgb is no better called patient's daugher and finally convinced patient (with daughter's support ) to accept transfusion. patient does not want other family members to know and so we will transfuse overnight and tell staffing branch manager not to discuss with family. . Family History: Unchanged from Admission Social History: Unchanged from Admission Past Medical History: Unchanged from Admission Objective Active Medications: . Acetaminophen (Tylenol Tab*) 650 mg PO Q4H PRN PRN Reason: FEVER/PAIN Last Admin: 02/26/17 16:57 Dose: 650 mg Diltiazem HCl (Cardizem Cd Cap*) 360 mg PO DAILY [facility] Last Admin: 02/28/17 09:11 Dose: 360 mg Famotidine (Pepcid Iv*) 20 mg IV BID [facility] Last Admin: 02/28/17 09:11 Dose: 20 mg Metoprolol Tartrate (Lopressor Tab*) 50 mg PO BID [facility] Last Admin: 02/28/17 09:11 Dose: 50 mg Morphine Sulfate (Morphine Inj (Syringe)*) 1 mg IV Q4H PRN PRN Reason: PAIN Last Admin: 02/28/17 04:39 Dose: 1 mg Ondansetron HCl (Zofran Inj*) 4 mg IV Q6H PRN PRN Reason: NAUSEA Last Admin: 02/28/17 10:31 Dose: 4 mg Prochlorperazine Edisylate (Compazine Inj*) 5 mg IV Q6H PRN PRN Reason: NAUSEA/VOMITING Last Admin: 02/26/17 20:45 Dose: 5 mg . Vital Signs 02/28/17 02/28/17 02/28/17 00:20 00:25 01:25 Temperature 99.4 F Pulse Rate 97 Respiratory 36 28 20 Rate Blood Pressure 150/115 (mmHg) O2 Sat by Pulse 98 Oximetry 02/28/17 02/28/17 02/28/17 04:03 04:39 05:39 Temperature 98.7 F Pulse Rate 106 Respiratory 32 28 22 Rate Blood Pressure 141/54 (mmHg) O2 Sat by Pulse 98 Oximetry Oxygen Devices in Use Now: Nasal Cannula Appearance: NAD Ears/Nose/Mouth/Throat: Clear Oropharnyx Neck: Trachea Midline Respiratory: Symmetrical Chest Expansion and Respiratory Effort Cardiovascular: NL Sounds; No Murmurs; No JVD Abdominal: NL Sounds; No Tenderness; No Distention Lymphatic: No Cervical Adenopathy Extremities: No Edema Skin: No Rash or Ulcers, - - palor noted Neurological: Alert and Oriented x 3, - - fatigued 2/2 anemia Lines/Tubes/Other Access: Clean, Dry and Intact Peripheral IV Nutrition: Taking PO's Result Diagrams: 02/28/17 04:36 02/28/17 04:36 Additional Lab and Data: . Microbiology and Other Data: Microbiology 02/25/17 20:56 Nasal Screen MRSA (PCR)(SERGIO) - Final Nasal Mrsa Negative Assess/Plan/Problems-Billing . Assessment: 61 year old female with lower GI bleed and severe, symptomatic anemia. Finally accepts PRBC transfusion. . - Patient Problems (1) Lower GI hemorrhage Current Visit: Yes Status: Acute Priority: High Code(s): K92.2 - GASTROINTESTINAL HEMORRHAGE, UNSPECIFIED Comment: - GI consult appreciated - >=2 PIV - IVF ongoing - PRBC ordered; will transfuse 6/12 PM. - Doing OK on medical floor - Regular diet; no plan for colonoscopy while inpatient. (2) Syncope and collapse Current Visit: Yes Status: Acute Priority: High Code(s): R55 - SYNCOPE AND COLLAPSE Comment: - undoubtedly secondary to diminished IV volume and severe anemia. (3) Symptomatic anemia Current Visit: Yes Status: Acute Priority: High Code(s): D64.9 - ANEMIA, UNSPECIFIED Comment: - as above. (4) Hypercapnic respiratory failure Current Visit: Yes Status: Acute Priority: High Code(s): J96.92 - RESPIRATORY FAILURE, UNSPECIFIED WITH HYPERCAPNIA Comment: - thought secondary to poor oxygen tension and poor respiratory/ventilatory function. - systemic acidosis indicates this is ON TOP of any chronic retention the patient may suffer secondary to her COPD. - OHS --> a possibility - regarless of cause, patient also declines BiPAP... (5) Morbid obesity with BMI of 45.0-49.9, adult Current Visit: Yes Status: Acute Priority: High Code(s): E66.01 - MORBID ( SEVERE) OBESITY DUE TO EXCESS CALORIES; Z68.42 - BODY MASS INDEX (BMI) 45.0-49.9 , ADULT Comment: - perhaps obesity hypoventialtion on top of COPD and severe anemia. (6) COPD (chronic obstructive pulmonary disease) Current Visit: Yes Status: Acute Priority: High Code(s): J44.9 - CHRONIC OBSTRUCTIVE PULMONARY DISEASE, UNSPECIFIED Comment: - Impaired pulmonary function at baseline
[2017-03-01] MEDS: Morphine INJ* 2 MG/ML 1 ML SYRINGE IV PRN ×2 (06:44→22:57)
[2017-03-01 06:51] LABS: Comments Flag Yes; Hematocrit 25 % (35-47); Hemoglobin 7.8 g/dl (12.0-16.0); Mean Corpuscular HGB Conc 31 g/dl (31-36); Mean Corpuscular Hemoglobin 25 pg (27-31); Mean Corpuscular Volume 82 fL (80-97); Mean Platelet Volume 9 um3 (7.4-10.4); Red Blood Count 3.09 10^6/ul (4.0-5.4); Red Cell Distribution Width 15 % (10.5-15); White Blood Count 16.4 10^3/ul (3.5-10.8)
[2017-03-01 07:01] LABS: Albumin 3.4 g/dL (3.2-5.2); Calcium 8.8 mg/dL (8.6-10.3); EGFR African American 185.7 (>60); EGFR Non-African American 144.4 (>60); Globulin 2.4 g/dL (2-4); Total Bilirubin 0.4 mg/dL (0.2-1.0); Total Protein 5.8 g/dL (6.4-8.9)
[2017-03-01] MEDS: Ondansetron INJ* 2 MG/ML VIAL IV PRN (07:10)
[2017-03-01] MEDS: Famotidine IV* 10 MG/ML 2 ML (20 mg) IV SCH (08:31)
[2017-03-01] MEDS: Diltiazem CD CAP* 180 MG PO SCH (08:32)
[2017-03-01] MEDS: Metoprolol Tartrate TAB* 50 mg PO SCH ×2 (08:32→21:39)
[2017-03-01] MEDS ORDERED: PROCHLORPERAZINE INJ 5 MG/ML 2 ML VIAL IV PRN (11:25)
--- NOTE | 2017-03-01 11:32 | PN ---
Subjective Date of Service: 03/01/17 Interval History: Pt states she does not feel any better today despite having 2 units PRBC transfused last night. She still feels very nauseous and is not eating much because of that. She still feels very SOB and states it is worse than her baseline. She feels weak and tired. She did state she would consider STR if she qualified. She states over the last couple days she has also developed dysuria and increased frequency of urination. Family History: Unchanged from Admission Social History: Unchanged from Admission Past Medical History: Unchanged from Admission Objective Active Medications: Acetaminophen (Tylenol Tab*) 650 mg PO Q4H PRN PRN Reason: FEVER/PAIN Last Admin: 02/26/17 16:57 Dose: 650 mg Diltiazem HCl (Cardizem Cd Cap*) 360 mg PO DAILY [facility] Last Admin: 03/01/17 08:32 Dose: 360 mg Metoprolol Tartrate (Lopressor Tab*) 50 mg PO BID [facility] Last Admin: 03/01/17 08:32 Dose: 50 mg Morphine Sulfate (Morphine Inj (Syringe)*) 1 mg IV Q4H PRN PRN Reason: PAIN Last Admin: 03/01/17 06:44 Dose: 1 mg Ondansetron HCl (Zofran Inj*) 4 mg IV Q6H PRN PRN Reason: NAUSEA Last Admin: 03/01/17 07:10 Dose: 4 mg Prochlorperazine Edisylate (Compazine Inj*) 10 mg IV Q6H PRN PRN Reason: NAUSEA/VOMITING Vital Signs 02/28/17 02/28/17 02/28/17 15:40 20:00 20:02 Temperature 97.3 F Pulse Rate 91 Respiratory 18 20 Rate Blood Pressure 128/53 (mmHg) O2 Sat by Pulse 98 98 Oximetry 02/28/17 02/28/17 02/28/17 20:40 20:59 21:25 Temperature 98.7 F 97.5 F Pulse Rate 104 108 Respiratory 20 20 Rate Blood Pressure 162/69 152/76 (mmHg) O2 Sat by Pulse 5 100 Oximetry 02/28/17 02/28/17 03/01/17 21:43 21:45 04:21 Temperature 98.9 F 97.3 F Pulse Rate 95 93 104 Respiratory 20 24 Rate Blood Pressure 124/55 130/64 153/70 (mmHg) O2 Sat by Pulse 92 Oximetry 03/01/17 03/01/17 03/01/17 06:44 07:44 07:53 Temperature 98.2 F Pulse Rate 115 Respiratory 20 24 18 Rate Blood Pressure 177/76 (mmHg) O2 Sat by Pulse 93 Oximetry 03/01/17 03/01/17 08:00 11:18 Temperature 97.9 F Pulse Rate 93 Respiratory 24 16 Rate Blood Pressure 133/64 (mmHg) O2 Sat by Pulse 97 Oximetry Oxygen Devices in Use Now: Nasal Cannula - 5L-97% Appearance: Super morbidly obese female lying in bed, NAD Eyes: No Scleral Icterus Ears/Nose/Mouth/Throat: Mucous Membranes Moist Respiratory: Symmetrical Chest Expansion and Respiratory Effort, Clear to Auscultation - diminished breath sounds in all lung marcos though the patient gives a poor effort on exam Cardiovascular: NL Sounds; No Murmurs; No JVD, RRR, - - trace LE edema Abdominal: NL Sounds; No Tenderness; No Distention - massively obese Extremities: No Clubbing, Cyanosis Skin: No Rash or Ulcers, No Nodules or Sclerosis Neurological: - - lethargic, falls asleep while I am talking to her Result Diagrams: 03/01/17 05:42 03/01/17 05:41 Additional Lab and Data: . Microbiology and Other Data: Microbiology 02/25/17 20:56 Nasal Screen MRSA (PCR)(SERGIO) - Final Nasal Mrsa Negative Assess/Plan/Problems-Billing Ms Pickett is a 61 yo F who has a h/o HTN and COPD who presented to the ER with c/ o syncope and rectal bleeding x7 days and was found to be severely anemic. - Patient Problems (1) Lower GI hemorrhage Current Visit: Yes Status: Acute Code(s): K92.2 - GASTROINTESTINAL HEMORRHAGE, UNSPECIFIED SNOMED Code(s): 78249084 Comment: THe patient finally accepted a blood transfusion last night. She received 2 units and her Hb went from 6.8 to 7.8. I recommended she receive 1 more unit and she states she will not accept it as she does not feel any better after having the 2 units last night. No signs of ongoing bleeding. Continue regular diet. Recheck CBC tomorrow. (2) Hypercapnic respiratory failure Current Visit: Yes Status: Acute Code(s): J96.92 - RESPIRATORY FAILURE, UNSPECIFIED WITH HYPERCAPNIA SNOMED Code(s): 312991154 Comment: The patient is lethargic today. I suspect her pCO2 is elevated possibly even furhter than previous as she has refused BiPAP. Will check ABG now. Her hypercarbic respiratory failure is likey contributing to her sleepiness and weakness. If pCO2 up will discuss need for BiPAP with pt. (3) HTN (hypertension) Current Visit: Yes Status: Acute Code(s): I10 - ESSENTIAL (PRIMARY) HYPERTENSION SNOMED Code(s): 89881248 Comment: BP in general has been under fair control. Continue home medication regimen. (4) COPD (chronic obstructive pulmonary disease) Current Visit: Yes Status: Acute Code(s): J44.9 - CHRONIC OBSTRUCTIVE PULMONARY DISEASE, UNSPECIFIED SNOMED Code(s): 20658786 Comment: No signs of exacerbation at this time though she has been hypercarbic on previous ABGs. (5) DVT prophylaxis Current Visit: Yes Status: Acute Code(s): MSV4792 - SNOMED Code(s): 580933103 Comment: SCDs alone secondary to severe anemia/GI bleed. (6) Full code status Current Visit: Yes Status: Acute Code(s): Z78.9 - OTHER SPECIFIED HEALTH STATUS SNOMED Code(s): 903378136 (7) Morbid obesity with BMI of 45.0-49.9, adult Current Visit: Yes Status: Acute Priority: High Code(s): E66.01 - MORBID ( SEVERE) OBESITY DUE TO EXCESS CALORIES; Z68.42 - BODY MASS INDEX (BMI) 45.0-49.9 , ADULT SNOMED Code(s): 793157064 Comment: - perhaps obesity hypoventialtion on top of COPD and severe anemia. (8) Symptomatic anemia Current Visit: Yes Status: Acute Priority: High Code(s): D64.9 - ANEMIA, UNSPECIFIED SNOMED Code(s): 374688868 Comment: - as above. (9) Syncope and collapse Current Visit: Yes Status: Acute Priority: High Code(s): R55 - SYNCOPE AND COLLAPSE SNOMED Code(s): 470915521 Comment: - undoubtedly secondary to diminished IV volume and severe anemia.
[2017-03-01 12:47] LABS: PCO2 Arterial 87 mmHg (35-45)
--- NOTE | 2017-03-01 15:25 | PN ---
Progress Note - Progress Note Note: Addendum: The pateint's ABG showed a pCO2 of 87-higher than even previous this hospitalization. When I went back to re-evaluate her she was much more lethargic than at the time of my previous exam. I ordered transfer to the ICU and BiPAP to start. Will get follow up ABG 1hr after the initiation of BiPAP.
[2017-03-01] MEDS ORDERED: Furosemide TAB* 40 MG ONE (15:35)
[2017-03-01] MEDS: Furosemide TAB* 40 MG PO SCH (15:39)
[2017-03-01] MEDS: Acetaminophen TAB* 325 MG PO PRN (16:34)
[2017-03-01 18:49] LABS: Urine Bacteria Absent (Absent); Urine Bilirubin Negative (Negative); Urine Glucose Negative (Negative); Urine Nitrite Negative (Negative)
[2017-03-02] MEDS ORDERED: Haloperidol INJ IV/IM* 5 MG/ML AMP ONE (00:37)
[2017-03-02] MEDS ORDERED: Haloperidol INJ IV/IM* 5 MG/ML AMP IV SLOW PU ONE ×2 (01:00→05:00)
[2017-03-02] MEDS: Morphine INJ* 2 MG/ML 1 ML SYRINGE IV PRN ×2 (03:41→19:13)
[2017-03-02 04:14] LABS: FIO2 40
[2017-03-02 04:19] LABS: PCO2 Arterial 96 mmHg (35-45)
[2017-03-02 04:36] LABS: Hematocrit 28 % (35-47); Hemoglobin 8.7 g/dl (12.0-16.0); Mean Corpuscular HGB Conc 31 g/dl (31-36); Mean Corpuscular Hemoglobin 26 pg (27-31); Mean Corpuscular Volume 83 fL (80-97); Mean Platelet Volume 8 um3 (7.4-10.4); Red Blood Count 3.43 10^6/ul (4.0-5.4); Red Cell Distribution Width 15 % (10.5-15); White Blood Count 15.7 10^3/ul (3.5-10.8)
--- NOTE | 2017-03-02 04:36 | PN ---
Progress Note - Progress Note Note: Nursing requested evaluation for hypoxia. Upon arrival Mrs Pickett is confused, as per report at beginning of shift. saO2 is in the mid- to high 80s with her oxygen off. She is fidgeting and pulling at lines. The earlier dose of haloperidol allowed her to rest and keep the BiPap on for ~2H, but she awoke ~ 0300 and refused to keep it in place. Initially her RR was in the high 20s to low 30s. Another 5mg haloperidol was given with a very quick response. She has returned to sleep. saO2 with her NC oxygen back on is high 90s. RR is back down to low teens. ABG performed showing progressive, compensated respiratory failure. At this time, given her non-acceptance of medical recommendations her condition is likely to continue to deteriorate and require intubation. However, currently it appears as though she may be able to be recovered from her current situation if sedation can be maintained allowing her to tolerate BiPap giving the opportunity to engage her family for further determination of course of care. I am highly concerned given her poor cardiac and respiratory dynamics 2nd her anemia for which she has refused further transfusion along with obesity hypoventilation syndrome that intubation may leave her ventilator dependent. Will re-evaluate ABG afrer ~1H on BiPap.
[2017-03-02 06:21] LABS: EPAP 6; FIO2 50; IPAP 12; Resp Rate 12
[2017-03-02 06:25] LABS: PCO2 Arterial 46 mmHg (35-45)
--- NOTE | 2017-03-02 09:25 | PN ---
Subjective Date of Service: 03/02/17 Interval History: Pt is able to tell me "no" to having pain. She denies SOB but then will not answer any further questions. Per nursing the patient was very confused overnight and required haldol for agitation. This AM she has been comfortably resting on the BiPAP. Family History: Unchanged from Admission Social History: Unchanged from Admission Past Medical History: Unchanged from Admission Objective Active Medications: Acetaminophen (Tylenol Tab*) 650 mg PO Q4H PRN PRN Reason: FEVER/PAIN Last Admin: 03/01/17 16:34 Dose: 650 mg Diltiazem HCl (Cardizem Cd Cap*) 360 mg PO DAILY [facility] Last Admin: 03/01/17 08:32 Dose: 360 mg Furosemide (Lasix Tab*) 40 mg PO DAILY [facility] Last Admin: 03/01/17 15:39 Dose: 40 mg Metoprolol Tartrate (Lopressor Tab*) 50 mg PO BID [facility] Last Admin: 03/01/17 21:39 Dose: 50 mg Morphine Sulfate (Morphine Inj (Syringe)*) 1 mg IV Q4H PRN PRN Reason: PAIN Last Admin: 03/02/17 03:41 Dose: 1 mg Ondansetron HCl (Zofran Inj*) 4 mg IV Q6H PRN PRN Reason: NAUSEA Last Admin: 03/01/17 07:10 Dose: 4 mg Prochlorperazine Edisylate (Compazine Inj*) 10 mg IV Q6H PRN PRN Reason: NAUSEA/VOMITING Last Admin: 03/01/17 11:45 Dose: 10 mg Vital Signs 03/01/17 03/01/17 03/01/17 11:18 15:23 15:36 Temperature 97.9 F 99.2 F Pulse Rate 93 98 106 Respiratory 16 21 13 Rate Blood Pressure 133/64 146/71 (mmHg) O2 Sat by Pulse 97 100 98 Oximetry 03/01/17 03/01/17 03/01/17 15:45 16:00 16:15 Temperature Pulse Rate 108 109 103 Respiratory 17 29 20 Rate Blood Pressure 137/74 164/89 184/88 (mmHg) O2 Sat by Pulse 99 96 99 Oximetry 03/01/17 03/01/17 03/01/17 16:30 16:46 17:00 Temperature Pulse Rate 109 110 106 Respiratory 25 26 20 Rate Blood Pressure 117/89 179/93 157/80 (mmHg) O2 Sat by Pulse 93 95 97 Oximetry 03/01/17 03/01/17 03/01/17 17:15 17:30 17:45 Temperature Pulse Rate 104 116 103 Respiratory 14 22 14 Rate Blood Pressure 157/73 160/69 150/59 (mmHg) O2 Sat by Pulse 97 96 97 Oximetry 03/01/17 03/01/17 03/01/17 18:00 18:15 18:30 Temperature Pulse Rate 101 103 103 Respiratory 14 14 16 Rate Blood Pressure 137/58 145/73 161/61 (mmHg) O2 Sat by Pulse 98 98 97 Oximetry 03/01/17 03/01/17 03/01/17 18:46 19:00 19:15 Temperature Pulse Rate 111 101 Respiratory 22 14 15 Rate Blood Pressure 165/89 161/65 164/78 (mmHg) O2 Sat by Pulse 95 97 Oximetry 03/01/17 03/01/17 03/01/17 19:30 19:33 19:45 Temperature 97.8 F Pulse Rate 113 102 Respiratory 17 14 Rate Blood Pressure 167/71 145/69 (mmHg) O2 Sat by Pulse 95 99 Oximetry 03/01/17 03/01/17 03/01/17 20:00 20:15 20:30 Temperature Pulse Rate 100 118 111 Respiratory 14 18 22 Rate Blood Pressure 156/70 182/90 179/86 (mmHg) O2 Sat by Pulse 99 85 92 Oximetry 03/01/17 03/01/17 03/01/17 20:45 21:00 21:01 Temperature Pulse Rate 109 109 Respiratory 26 18 20 Rate Blood Pressure 141/72 170/81 (mmHg) O2 Sat by Pulse 98 99 Oximetry 03/01/17 03/01/17 03/01/17 21:15 21:30 21:35 Temperature Pulse Rate 108 121 Respiratory 18 24 Rate Blood Pressure 174/74 176/67 148/63 (mmHg) O2 Sat by Pulse 100 91 Oximetry 03/01/17 03/01/17 03/01/17 22:00 22:40 22:57 Temperature Pulse Rate 116 99 Respiratory 12 20 21 Rate Blood Pressure 141/117 142/61 (mmHg) O2 Sat by Pulse 91 94 Oximetry 03/01/17 03/01/17 03/01/17 23:00 23:15 23:41 Temperature 98.8 F Pulse Rate 99 100 Respiratory 26 20 Rate Blood Pressure 121/50 (mmHg) O2 Sat by Pulse 90 92 Oximetry 03/02/17 03/02/17 03/02/17 00:00 00:01 01:00 Temperature Pulse Rate 103 102 114 Respiratory 20 23 21 Rate Blood Pressure 108/79 151/74 (mmHg) O2 Sat by Pulse 91 90 94 Oximetry 03/02/17 03/02/17 03/02/17 02:00 02:03 03:00 Temperature Pulse Rate 107 110 106 Respiratory 15 22 16 Rate Blood Pressure 145/68 146/74 (mmHg) O2 Sat by Pulse 95 98 98 Oximetry 03/02/17 03/02/17 03/02/17 03:41 04:00 05:00 Temperature 97 F Pulse Rate 118 110 Respiratory 24 23 16 Rate Blood Pressure 135/60 135/61 (mmHg) O2 Sat by Pulse 93 87 Oximetry 03/02/17 03/02/17 03/02/17 06:00 07:00 08:00 Temperature 98.7 F Pulse Rate 107 116 108 Respiratory 15 16 15 Rate Blood Pressure 151/72 142/55 156/72 (mmHg) O2 Sat by Pulse 97 97 98 Oximetry 03/02/17 08:45 Temperature Pulse Rate Respiratory Rate Blood Pressure (mmHg) O2 Sat by Pulse 97 Oximetry Oxygen Devices in Use Now: CPAP/BiPAP - 97% on 50%FiO2 Appearance: Morbidly obese middle aged female lying in bed, NAD Eyes: No Scleral Icterus Ears/Nose/Mouth/Throat: Mucous Membranes Moist Respiratory: Symmetrical Chest Expansion and Respiratory Effort, Clear to Auscultation - anteriorly Cardiovascular: NL Sounds; No Murmurs; No JVD, No Edema, - - tachycardic but regular Abdominal: NL Sounds; No Tenderness; No Distention Extremities: No Clubbing, Cyanosis Skin: No Rash or Ulcers, No Nodules or Sclerosis Neurological: - - lethargic Result Diagrams: 03/02/17 04:28 03/01/17 05:41 Additional Lab and Data: . Microbiology and Other Data: Microbiology 02/25/17 20:56 Nasal Screen MRSA (PCR)(SERGIO) - Final Nasal Mrsa Negative Assess/Plan/Problems-Billing Ms Pickett is a 61 yo F who has a h/o HTN and COPD who presented to the ER with c/ o syncope and rectal bleeding x7 days and was found to be severely anemic. - Patient Problems (1) Hypercapnic respiratory failure Current Visit: Yes Status: Acute Code(s): J96.92 - RESPIRATORY FAILURE, UNSPECIFIED WITH HYPERCAPNIA SNOMED Code(s): 323529742 Comment: The patient developed progressive hypercarbia and with it increasing confusion/agitation and lethargy. Her pH however has been stable despite the increasing pCO2. She currently is tolerating BiPAP though she still appears lethargic (possibly secondary to haldol overnight). The ABG this AM is improved but her mentation is not as good as I would have expected with the improved pCO2. (2) Lower GI hemorrhage Current Visit: Yes Status: Acute Code(s): K92.2 - GASTROINTESTINAL HEMORRHAGE, UNSPECIFIED SNOMED Code(s): 61875684 Comment: H/H improved even further today despite not having any more blood transfusions. No signs of bleeding at this time. Continue to follow H/H. (3) Syncope and collapse Current Visit: Yes Status: Acute Priority: High Code(s): R55 - SYNCOPE AND COLLAPSE SNOMED Code(s): 462899340 Comment: Occured prior to admission secondary to severe anemia. (4) HTN (hypertension) Current Visit: Yes Status: Acute Code(s): I10 - ESSENTIAL (PRIMARY) HYPERTENSION SNOMED Code(s): 02149927 Comment: BP appears moderately elevated. Will add amlodipine and monitor her BP. (5) COPD (chronic obstructive pulmonary disease) Current Visit: Yes Status: Acute Code(s): J44.9 - CHRONIC OBSTRUCTIVE PULMONARY DISEASE, UNSPECIFIED SNOMED Code(s): 94314989 Comment: Pt has diminshed breath sounds in all lung macros but no wheezing or tightness. Continue BiPAP for now until her MS has improved a little further. (6) Morbid obesity with BMI of 45.0-49.9, adult Current Visit: Yes Status: Acute Code(s): E66.01 - MORBID (SEVERE) OBESITY DUE TO EXCESS CALORIES; Z68.42 - BODY MASS INDEX (BMI) 45.0-49.9, ADULT SNOMED Code(s): 178988175 Comment: Diagnosis noted. (7) DVT prophylaxis Current Visit: Yes Status: Acute Code(s): CLC6611 - SNOMED Code(s): 353784565 Comment: SCDs alone secondary to severe anemia/GI bleed. (8) Full code status Current Visit: Yes Status: Acute Code(s): Z78.9 - OTHER SPECIFIED HEALTH STATUS SNOMED Code(s): 074228628
--- NOTE | 2017-03-02 09:55 | RAD ---
HISTORY: GI bleed, evaluate for infiltrate COMPARISONS: February 25, 2017 VIEWS:1: Single frontal portable view of the chest at 9:31 AM FINDINGS: LINES AND TUBES: None. CARDIOMEDIASTINAL SILHOUETTE: The cardiac silhouette is enlarged. The cardiomediastinal silhouette is otherwise normal for portable technique. PLEURA: The costophrenic angles are sharp. No pleural abnormalities are noted. LUNG PARENCHYMA: There is a diffuse reticular pattern with indistinct pulmonary vessels. ABDOMEN: The upper abdomen is clear. There is no subphrenic gas. BONES AND SOFT TISSUES: No bone or soft tissue abnormalities are noted. IMPRESSION: CARDIOMEGALY WITH PULMONARY INTERSTITIAL EDEMA
[2017-03-02] MEDS: Metoprolol Tartrate TAB* 50 mg PO SCH ×2 (10:12→20:33)
[2017-03-02] MEDS: amLODIPine TAB* 5 MG PO SCH (10:12)
[2017-03-02] MEDS: Diltiazem CD CAP* 180 MG PO SCH (10:12)
[2017-03-02] MEDS: Acetaminophen TAB* 325 MG PO PRN (18:41)
[2017-03-03] MEDS: Morphine INJ* 2 MG/ML 1 ML SYRINGE IV PRN ×5 (01:48→23:30)
[2017-03-03] MEDS ORDERED: Diltiazem DRIP* 100 MG/100 ML ADDV.BAG IVPB ONE (05:22)
[2017-03-03] MEDS ORDERED: Diltiazem DRIP* 100 MG/100 ML ADDV.BAG IVPB SCH ×2 (06:00→07:42)
[2017-03-03 06:33] LABS: Hematocrit 28 % (35-47); Hemoglobin 8.6 g/dl (12.0-16.0); Mean Corpuscular HGB Conc 31 g/dl (31-36); Mean Corpuscular Hemoglobin 25 pg (27-31); Mean Corpuscular Volume 83 fL (80-97); Mean Platelet Volume 8 um3 (7.4-10.4); Red Blood Count 3.38 10^6/ul (4.0-5.4); Red Cell Distribution Width 15 % (10.5-15); White Blood Count 15.9 10^3/ul (3.5-10.8)
[2017-03-03 06:35] LABS: Comments Flag Yes
[2017-03-03 06:40] LABS: BUN/Creatinine Ratio 36.8 (8-20); Calcium 9.1 mg/dL (8.6-10.3); Potassium 3.7 mmol/L (3.5-5.0)
[2017-03-03] MEDS ORDERED: Potassium Chlor TAB* 20 MEQ TAB.ER PO ONE (07:42)
--- NOTE | 2017-03-03 07:51 | PN ---
Subjective Date of Service: 03/03/17 Interval History: Pt states she is feeling ok. She denies any more SOB now than usual. She states she usually uses 2L O2 continuously but increases it to 4L with activity. She can not feel her heart racing (went into afib early this AM). She states her feet and legs are painful but this is chronic. She still has not had a BM. Family History: Unchanged from Admission Social History: Unchanged from Admission Past Medical History: Unchanged from Admission Objective Active Medications: Acetaminophen (Tylenol Tab*) 650 mg PO Q4H PRN PRN Reason: FEVER/PAIN Last Admin: 03/02/17 18:41 Dose: 650 mg Amlodipine Besylate (Norvasc Tab*) 5 mg PO DAILY [facility] Last Admin: 03/02/17 10:12 Dose: 5 mg Diltiazem HCl (Cardizem Iv Advan*) 100 mg in 100 mls @ 10 mls/hr IVPB .PER PARAMETERS [facility] PRN Reason: 10 MG/HR Metoprolol Tartrate (Lopressor Tab*) 50 mg PO BID [facility] Last Admin: 03/02/17 20:33 Dose: 50 mg Morphine Sulfate (Morphine Inj (Syringe)*) 1 mg IV Q4H PRN PRN Reason: PAIN Last Admin: 03/03/17 05:58 Dose: 1 mg Ondansetron HCl (Zofran Inj*) 4 mg IV Q6H PRN PRN Reason: NAUSEA Last Admin: 03/01/17 07:10 Dose: 4 mg Prochlorperazine Edisylate (Compazine Inj*) 10 mg IV Q6H PRN PRN Reason: NAUSEA/VOMITING Last Admin: 03/01/17 11:45 Dose: 10 mg Vital Signs 03/02/17 03/02/17 03/02/17 08:00 08:45 09:00 Temperature 98.7 F Pulse Rate 108 115 Respiratory 15 16 Rate Blood Pressure 156/72 123/55 (mmHg) O2 Sat by Pulse 98 97 96 Oximetry 03/02/17 03/02/17 03/02/17 10:00 11:00 12:00 Temperature 98.2 F Pulse Rate 115 98 102 Respiratory 21 19 17 Rate Blood Pressure 120/90 137/79 130/58 (mmHg) O2 Sat by Pulse 91 97 98 Oximetry 03/02/17 03/02/17 03/02/17 13:00 14:00 15:00 Temperature Pulse Rate 104 92 104 Respiratory 21 15 22 Rate Blood Pressure 123/41 136/70 153/54 (mmHg) O2 Sat by Pulse 93 100 93 Oximetry 03/02/17 03/02/17 03/02/17 16:00 17:00 18:00 Temperature 98.6 F Pulse Rate 107 108 117 Respiratory 16 20 22 Rate Blood Pressure 156/62 144/77 151/80 (mmHg) O2 Sat by Pulse 89 95 92 Oximetry 03/02/17 03/02/17 03/02/17 18:38 19:00 19:13 Temperature Pulse Rate 122 Respiratory 20 18 19 Rate Blood Pressure 165/76 (mmHg) O2 Sat by Pulse 95 Oximetry 03/02/17 03/02/17 03/02/17 19:43 19:45 19:46 Temperature 97.5 F Pulse Rate Respiratory 21 Rate Blood Pressure (mmHg) O2 Sat by Pulse 100 Oximetry 03/02/17 03/02/17 03/02/17 20:00 21:00 22:00 Temperature Pulse Rate 105 96 88 Respiratory 16 16 15 Rate Blood Pressure 142/50 152/56 (mmHg) O2 Sat by Pulse 96 94 95 Oximetry 03/02/17 03/02/17 03/02/17 22:01 22:08 23:00 Temperature Pulse Rate 87 93 95 Respiratory 14 16 17 Rate Blood Pressure 121/60 140/73 (mmHg) O2 Sat by Pulse 95 95 100 Oximetry 03/02/17 03/03/17 03/03/17 23:47 00:00 00:01 Temperature 97.4 F Pulse Rate 91 90 Respiratory 14 14 Rate Blood Pressure 132/70 (mmHg) O2 Sat by Pulse 100 100 Oximetry 03/03/17 03/03/17 03/03/17 01:00 01:48 02:00 Temperature Pulse Rate 92 98 Respiratory 15 19 18 Rate Blood Pressure 152/82 143/86 (mmHg) O2 Sat by Pulse 100 100 Oximetry 03/03/17 03/03/17 03/03/17 02:30 03:00 03:14 Temperature Pulse Rate 101 Respiratory 17 17 Rate Blood Pressure 159/102 109/53 (mmHg) O2 Sat by Pulse 99 Oximetry 03/03/17 03/03/17 03/03/17 03:36 03:49 04:00 Temperature 97.2 F Pulse Rate 121 121 Respiratory 21 14 Rate Blood Pressure 108/78 105/63 (mmHg) O2 Sat by Pulse 98 98 Oximetry 03/03/17 03/03/17 03/03/17 05:00 05:30 05:45 Temperature Pulse Rate 139 130 Respiratory 23 21 20 Rate Blood Pressure 108/75 120/73 124/78 (mmHg) O2 Sat by Pulse 96 94 Oximetry 03/03/17 03/03/17 05:58 06:00 Temperature Pulse Rate 120 Respiratory 21 22 Rate Blood Pressure 129/83 (mmHg) O2 Sat by Pulse 92 Oximetry Oxygen Devices in Use Now: Nasal Cannula - 10L-98% Appearance: Middle aged morbidly obese female lying in bed, NAD Eyes: No Scleral Icterus Ears/Nose/Mouth/Throat: Mucous Membranes Moist Respiratory: Symmetrical Chest Expansion and Respiratory Effort, Clear to Auscultation - markedly diminished breath sounds in all lung marcos Cardiovascular: NL Sounds; No Murmurs; No JVD, No Edema, - - irregularly irregular, tachycardic Abdominal: NL Sounds; No Tenderness; No Distention Extremities: No Clubbing, Cyanosis Skin: No Rash or Ulcers, No Nodules or Sclerosis Neurological: Alert and Oriented x 3 Result Diagrams: 03/03/17 06:09 03/03/17 06:09 Additional Lab and Data: . Microbiology and Other Data: Microbiology 02/25/17 20:56 Nasal Screen MRSA (PCR)(SERGIO) - Final Nasal Mrsa Negative Assess/Plan/Problems-Billing Ms Pickett is a 61 yo F who has a h/o HTN and COPD who presented to the ER with c/ o syncope and rectal bleeding x7 days and was found to be severely anemic. - Patient Problems (1) Atrial fibrillation with RVR Current Visit: Yes Status: Acute Code(s): I48.91 - UNSPECIFIED ATRIAL FIBRILLATION SNOMED Code(s): 086956085195253 Comment: At approximately 3am the patient went into rapid afib. She has been started on a diltiazem drip but her HR remains uncontrolled. Will titrate the drip up. Replace K, check Mg level. She can not be anticoagulated at this time due to her recent life threatening bleed. Check echo. (2) Hypercapnic respiratory failure Current Visit: Yes Status: Acute Code(s): J96.92 - RESPIRATORY FAILURE, UNSPECIFIED WITH HYPERCAPNIA SNOMED Code(s): 616648029 Comment: The patient is much improved today in terms of her mental status. She has been encouraged to use the BiPAP with naps and sleeping overnight. She states she will try as long as we give her something to help her relax (she does not tolerate the mask otherwise). (3) Lower GI hemorrhage Current Visit: Yes Status: Acute Code(s): K92.2 - GASTROINTESTINAL HEMORRHAGE, UNSPECIFIED SNOMED Code(s): 42994891 Comment: H/H stable without any signs of bleeding. (4) Leukocytosis Current Visit: Yes Status: Acute Code(s): D72.829 - ELEVATED WHITE BLOOD CELL COUNT, UNSPECIFIED SNOMED Code(s): 282199284 Comment: The patient has had a persistent leukocytosis without clear signs of infection. ? if it is being driven due to stress. Continue to follow and monitor for signs of infection. (5) Syncope and collapse Current Visit: Yes Status: Acute Code(s): R55 - SYNCOPE AND COLLAPSE SNOMED Code(s): 411314115 Comment: Occured prior to admission secondary to severe anemia. (6) HTN (hypertension) Current Visit: Yes Status: Acute Code(s): I10 - ESSENTIAL (PRIMARY) HYPERTENSION SNOMED Code(s): 98416994 Comment: BP improved this AM but she has also been started on a diltiazem drip. Continue to monitor. (7) COPD (chronic obstructive pulmonary disease) Current Visit: Yes Status: Acute Code(s): J44.9 - CHRONIC OBSTRUCTIVE PULMONARY DISEASE, UNSPECIFIED SNOMED Code(s): 16801580 Comment: Pt continues to have markedly diminsihed breath sounds in all lung marcos. No wheezing noted. Try to wean down O2. (8) Morbid obesity with BMI of 45.0-49.9, adult Current Visit: Yes Status: Acute Code(s): E66.01 - MORBID (SEVERE) OBESITY DUE TO EXCESS CALORIES; Z68.42 - BODY MASS INDEX (BMI) 45.0-49.9, ADULT SNOMED Code(s): 332446371 Comment: Diagnosis noted. (9) DVT prophylaxis Current Visit: Yes Status: Acute Code(s): DLJ0336 - SNOMED Code(s): 707635936 Comment: SCDs alone secondary to severe anemia/GI bleed. (10) Full code status Current Visit: Yes Status: Acute Code(s): Z78.9 - OTHER SPECIFIED HEALTH STATUS SNOMED Code(s): 139112429
[2017-03-03] MEDS ORDERED: KCL 20 MEQ/100 ML IVPREMIX* 20 MEQ/100 ML BAG IV SCH (08:00)
[2017-03-03 08:13] LABS: Magnesium 1.9 mg/dL (1.9-2.7)
[2017-03-03] MEDS: Metoprolol Tartrate TAB* 50 mg PO SCH ×2 (09:48→20:31)
[2017-03-03] MEDS: amLODIPine TAB* 5 MG PO SCH (09:48)
--- NOTE | 2017-03-03 17:57 | ECHO ---
Patient: DUANE BERGER [facility] Rec#: [id number] : 1955 Date: 03/03/2017 Age: 61y Height: 162.56 cm / 64.0 in Weight: 131.54 kg / 289.9 lbs Sex: F BSA: 2.29 Room#: ICU 12 Admit Date#: 02/25/2017 Type: Inpatient Referring: Yady Ragland DO Reading: Gopal Celis MD Lead Cytogenetic Technologist: Cheryl Cui,HAYDER,RDMS CC: Trey Hernandez DO Transthoracic Echocardiogram Indication: Afib BP: 138/91 HR: 91 Rhythm: NSR Findings History: HTN, COPD, cardiomegaly, morbid obesity, former smoker. Technical Comments: The study is technically limited due to poor parasternal windows. Left Ventricle: The left ventricular chamber size is normal. Moderate concentric left ventricular hypertrophy is observed. There is a prominent septal knuckle. The left ventricle appears hyperdynamic.Mild increase in aortic and lvot velocities c/w the hyperdynamic state; probable mild LVOT obstuction and Mild aortic stenosis. The estimated ejection fraction is 60-65%. Abnormal left ventricular diastolic filling is observed, consistent with impaired relaxation. Left Atrium: The left atrium is mild to moderately dilated. Right Ventricle: The right ventricle wall thickness is mildly increased. The right ventricular cavity size is normal. The right ventricular global systolic function is normal. Right Atrium: The right atrium is mildly dilated. echogenicity noted in RA -superior border. possible eustacian valve (normal variant) Aortic Valve: The aortic valve leaflets are mildly thickened. There is aortic annular calcification. There is trace to mild aortic regurgitation. There is mild aortic stenosis. The mean gradient of the aortic valve is 23 mmHg. The aortic valve area, by peak velocities, is calculated at 1.5 cm2. Mitral Valve: There is mitral annular calcification. The mitral valve leaflets are mildly thickened. Mitral valve posterior leaflet calcification is visualized. Mitral valve leaflet mobility is mildly restricted. There is a trace of mitral regurgitation. There is mild mitral stenosis. The mean gradient across the mitral valve is 7.3 mmHg. This probably overestimates the mean gradient due to technical issues. The mitral valve area, by pressure half time, is calculated at 3.8 cm2. Tricuspid Valve: The tricuspid valve leaflets are normal. There is trace tricuspid regurgitation. Unable to estimate the right ventricular systolic pressure. Pulmonic Valve: The pulmonic valve structure is not well visualized. Pericardium: There is no significant pericardial effusion. Aorta: The aortic root appears normal. The aortic arch is not well visualized. Pulmonary Artery: The main pulmonary artery is not well visualized. Venous: The inferior vena cava is dilated. There is less than 50% respiratory change in the inferior vena cava dimension. Summary: There was not any prior study for comparison. Conclusions The study is technically limited due to poor parasternal windows. Moderate concentric left ventricular hypertrophy is observed. There is a prominent septal knuckle. The left ventricle appears hyperdynamic. Mild increase in aortic and lvot velocities c/w the hyperdynamic state; probable mild LVOT obstruction and Mild aortic stenosis. The estimated ejection fraction is 60-65%. Abnormal left ventricular diastolic filling is observed, consistent with impaired relaxation. The left atrium is mild to moderately dilated. The right ventricle wall thickness is mildly increased. The aortic valve leaflets are mildly thickened. There is mild aortic stenosis. There is trace to mild aortic regurgitation. Mitral valve leaflet mobility is mildly restricted. There is mild mitral stenosis. There is trace tricuspid regurgitation. echogenicity noted in RA; possible eustacian valve (normal variant). Consider EMILY for further evaluation of valvular function and RA findings if indicated. Measurements Name Value Normal Range RVDdMajor (2D) 3.7 cm (2.2 - 4.4) RAd ISD 4CH 5.2 cm (3.4 - 4.9) RA (A4C)W 5.5 cm (2.9 - 4.6) IVSd (2D) 1.8 cm (0.6 - 1) LVPWd (2D) 1.5 cm (0.6 - 1) LVIDd (2D) 4.2 cm (3.6 - 5.4) LVIDs (2D) 3.4 cm - LV FS (2D) 19 % (25 - 45) Aortic Annulus 2 cm (1.4 - 2.6) Ao root diameter (2D) 3 cm (2.1 - 3.5) Ascending Ao 3 cm (2.1 - 3.4) LA dimension (AP) 2D 4.7 cm (2.3 - 3.8) LAd ISD 4CH 5.2 cm (2.9 - 5.3) LA ISD 4CH W 5.9 cm (2.5 - 4.5) Name Value Normal Range LA ESV SP 4CH (A/L) 85.4 ml - LA ESV SP 2CH (A/L) 110.75 ml - LA ESV BP (A/L) 107.21 ml - LA ESV BP (A/L) index 47 ml/m2 - LA ESV SP 4CH (MOD) 80.23 ml - LA ESV SP 2CH (MOD) 104.99 ml - Name Value Normal Range MV E-wave Vmax 1.3 m/sec - MV deceleration time 179 msec - MV A-wave Vmax 1.7 m/sec - MV E:A ratio 0.8 ratio - P. vein S-wave Vmax 0.5 m/sec - P. vein D-wave Vmax 0.4 m/sec - P. vein S:D Vmax ratio 1.2 ratio - LV septal e' Vmax 0.05 m/sec - LV lateral e' Vmax 0.07 m/sec - LV E:e' septal ratio 26 ratio - LV E:e' lateral ratio 19 ratio - Name Value Normal Range AV Vmax 3.2 m/sec - AV VTI 64 cm - AV peak gradient 41 mmHg - AV mean gradient 23 mmHg - LVOT diameter 2 cm - LVOT Vmax 1.5 m/sec - LVOT VTI 31.8 cm - LVOT peak gradient 9 mmHg - LVOT mean gradient 5.7 mmHg - DOI (VTI) 0.5 ratio - MARI (continuity Vmax) 1.5 cm2 - MARI (continuity VTI) 1.5 cm2 - Name Value Normal Range MV Vmax 2.1 m/sec - MV VTI 38.2 cm - MV peak gradient 18 mmHg - MV mean gradient 7.3 mmHg - MV PHT 58 msec - MVA (PHT) 3.8 cm2 - MVA (continuity VTI) 2.5 cm2 - Name Value Normal Range RAP 8 mmHg - IVC diameter 3.2 cm - Name Value Normal Range PV Vmax 0.8 m/sec - PV peak gradient 2.6 mmHg -
[2017-03-03] MEDS: ALPRAZolam TAB* 0.5 MG PO PRN (20:31)
[2017-03-03] MEDS ORDERED: ALPRAZolam TAB* 0.5 MG PO ONE (22:40)
[2017-03-04] MEDS ORDERED: Morphine INJ* 2 MG/ML 1 ML SYRINGE IV PRN (00:27)
[2017-03-04] MEDS: Morphine INJ* 4 MG/ML 1 ML SYRINGE IV PRN ×2 (00:42→22:40)
[2017-03-04] MEDS: Metoprolol Tartrate TAB* 50 mg PO SCH (09:23)
[2017-03-04] MEDS: amLODIPine TAB* 5 MG PO SCH (09:24)
--- NOTE | 2017-03-04 11:50 | PN ---
Subjective Date of Service: 03/04/17 Interval History: Pt is feeling ok. She states her breathing is not quite normal. She has been noted to be very impulsive which per her son is not normal. Additionally she keeps drifting to sleepy which again is not normal. Family History: Unchanged from Admission Social History: Unchanged from Admission Past Medical History: Unchanged from Admission Objective Active Medications: Acetaminophen (Tylenol Tab*) 650 mg PO Q4H PRN PRN Reason: FEVER/PAIN Last Admin: 03/02/17 18:41 Dose: 650 mg Alprazolam (Xanax Tab*) 0.5 mg PO TID PRN PRN Reason: ANXIETY Last Admin: 03/03/17 20:31 Dose: 0.5 mg Amlodipine Besylate (Norvasc Tab*) 5 mg PO DAILY [facility] Last Admin: 03/04/17 09:24 Dose: 5 mg Metoprolol Tartrate (Lopressor Tab*) 50 mg PO BID [facility] Last Admin: 03/04/17 09:23 Dose: 50 mg Morphine Sulfate (Morphine Inj (Syringe)*) 4 mg IV Q4H PRN PRN Reason: PAIN Last Admin: 03/04/17 00:42 Dose: 4 mg Ondansetron HCl (Zofran Inj*) 4 mg IV Q6H PRN PRN Reason: NAUSEA Last Admin: 03/01/17 07:10 Dose: 4 mg Prochlorperazine Edisylate (Compazine Inj*) 10 mg IV Q6H PRN PRN Reason: NAUSEA/VOMITING Last Admin: 03/01/17 11:45 Dose: 10 mg Vital Signs 03/03/17 03/03/17 03/03/17 12:00 12:10 12:30 Temperature 97.7 F Pulse Rate 89 85 Respiratory 26 26 20 Rate Blood Pressure 152/62 125/82 (mmHg) O2 Sat by Pulse 91 97 Oximetry 03/03/17 03/03/17 03/03/17 13:00 13:30 14:00 Temperature Pulse Rate 98 99 Respiratory 19 22 23 Rate Blood Pressure 146/73 160/87 139/70 (mmHg) O2 Sat by Pulse 95 98 Oximetry 03/03/17 03/03/17 03/03/17 14:30 15:00 15:30 Temperature Pulse Rate 100 103 110 Respiratory 18 18 20 Rate Blood Pressure 137/73 139/63 156/77 (mmHg) O2 Sat by Pulse 95 98 97 Oximetry 03/03/17 03/03/17 03/03/17 15:39 16:00 16:30 Temperature 98.5 F Pulse Rate 115 111 Respiratory 25 19 Rate Blood Pressure 136/106 (mmHg) O2 Sat by Pulse 92 100 Oximetry 03/03/17 03/03/17 03/03/17 17:00 17:30 18:00 Temperature Pulse Rate 106 108 119 Respiratory 17 20 27 Rate Blood Pressure 168/70 177/89 156/65 (mmHg) O2 Sat by Pulse 98 99 94 Oximetry 03/03/17 03/03/17 03/03/17 18:30 18:34 19:00 Temperature Pulse Rate 122 113 Respiratory 25 21 19 Rate Blood Pressure 167/90 145/66 (mmHg) O2 Sat by Pulse 95 100 Oximetry 03/03/17 03/03/17 03/03/17 19:30 19:42 20:00 Temperature 97.8 F Pulse Rate 113 112 Respiratory 20 19 Rate Blood Pressure 163/73 157/76 (mmHg) O2 Sat by Pulse 97 100 Oximetry 03/03/17 03/03/17 03/03/17 20:30 20:31 21:00 Temperature Pulse Rate 120 96 Respiratory 27 23 16 Rate Blood Pressure 180/95 130/71 (mmHg) O2 Sat by Pulse 99 99 Oximetry 03/03/17 03/03/17 03/03/17 21:30 22:00 22:30 Temperature Pulse Rate 94 93 103 Respiratory 18 17 19 Rate Blood Pressure 137/68 143/77 149/76 (mmHg) O2 Sat by Pulse 99 100 98 Oximetry 03/03/17 03/03/17 03/03/17 22:58 23:00 23:18 Temperature Pulse Rate 109 106 Respiratory 17 23 19 Rate Blood Pressure 140/87 (mmHg) O2 Sat by Pulse 99 99 Oximetry 03/03/17 03/03/17 03/04/17 23:30 23:35 00:00 Temperature 97.7 F Pulse Rate 104 100 Respiratory 14 17 Rate Blood Pressure 152/75 (mmHg) O2 Sat by Pulse 99 100 Oximetry 03/04/17 03/04/17 03/04/17 00:01 00:30 00:42 Temperature Pulse Rate 101 Respiratory 15 16 Rate Blood Pressure 134/65 127/71 (mmHg) O2 Sat by Pulse 100 Oximetry 03/04/17 03/04/17 03/04/17 01:00 01:15 01:30 Temperature Pulse Rate 97 100 Respiratory 16 16 17 Rate Blood Pressure 119/65 119/69 (mmHg) O2 Sat by Pulse 98 98 Oximetry 03/04/17 03/04/17 03/04/17 02:00 02:30 03:00 Temperature Pulse Rate 98 98 Respiratory 15 16 16 Rate Blood Pressure 130/67 129/69 136/72 (mmHg) O2 Sat by Pulse 96 97 Oximetry 03/04/17 03/04/17 03/04/17 03:30 03:36 04:00 Temperature 96.1 F Pulse Rate 102 105 Respiratory 17 23 Rate Blood Pressure 152/85 147/78 (mmHg) O2 Sat by Pulse 96 100 Oximetry 03/04/17 03/04/17 03/04/17 05:00 05:19 06:00 Temperature Pulse Rate 110 113 117 Respiratory 20 23 19 Rate Blood Pressure 165/143 162/90 145/68 (mmHg) O2 Sat by Pulse 97 100 98 Oximetry 03/04/17 03/04/17 03/04/17 07:00 07:37 08:00 Temperature 97.5 F Pulse Rate 116 115 Respiratory 21 25 Rate Blood Pressure 115/64 (mmHg) O2 Sat by Pulse 95 97 Oximetry 03/04/17 03/04/17 03/04/17 08:02 08:56 09:00 Temperature Pulse Rate 112 118 Respiratory 24 27 Rate Blood Pressure 137/78 (mmHg) O2 Sat by Pulse 94 94 92 Oximetry 03/04/17 03/04/17 09:04 11:12 Temperature 97.9 F Pulse Rate 118 Respiratory 25 Rate Blood Pressure 154/76 (mmHg) O2 Sat by Pulse 92 Oximetry Oxygen Devices in Use Now: Nasal Cannula - 92%-5L Appearance: Middle aged obese female sitting up in bed, NAD Eyes: No Scleral Icterus Ears/Nose/Mouth/Throat: Mucous Membranes Moist Respiratory: Symmetrical Chest Expansion and Respiratory Effort, Clear to Auscultation - diminshed breath sounds in all lung marcos Cardiovascular: NL Sounds; No Murmurs; No JVD, RRR, No Edema, - - tachycardic but regular Abdominal: NL Sounds; No Tenderness; No Distention Extremities: No Clubbing, Cyanosis Skin: No Rash or Ulcers, No Nodules or Sclerosis Neurological: - - oriented to place, situation, still sleepy and drifts to sleep easily Result Diagrams: 03/03/17 06:09 03/03/17 06:09 Additional Lab and Data: . Microbiology and Other Data: Microbiology 02/25/17 20:56 Nasal Screen MRSA (PCR)([facility]) - Final Nasal Mrsa Negative Assess/Plan/Problems-Billing Ms Pickett is a 61 yo F who has a h/o HTN and COPD who presented to the ER with c/ o syncope and rectal bleeding x7 days and was found to be severely anemic. - Patient Problems (1) Atrial fibrillation with RVR Current Visit: Yes Status: Acute Code(s): I48.91 - UNSPECIFIED ATRIAL FIBRILLATION SNOMED Code(s): 891712134304221 Comment: Pt remains in NSR/sinus tachycardia. Increase metoprolol to 75mg BID. No anticoagulation due to recent life-threatening bleed. Repeat BMP tomorrow. (2) Hypercapnic respiratory failure Current Visit: Yes Status: Acute Code(s): J96.92 - RESPIRATORY FAILURE, UNSPECIFIED WITH HYPERCAPNIA SNOMED Code(s): 245461307 Comment: The patient's mental status is better than it was a couple days ago but she is still falling asleep very easily. Will check ammonia level given her sleepiness. She has been instructed to continue to use BiPAP when sleeping. Will likely need this set up on d/c. I suspect her hypercarbic resp failure is secondary to her obesity and COPD. (3) Lower GI hemorrhage Current Visit: Yes Status: Acute Code(s): K92.2 - GASTROINTESTINAL HEMORRHAGE, UNSPECIFIED SNOMED Code(s): 65748056 Comment: H/H stable without any signs of bleeding. (4) Leukocytosis Current Visit: Yes Status: Acute Code(s): D72.829 - ELEVATED WHITE BLOOD CELL COUNT, UNSPECIFIED SNOMED Code(s): 128760349 Comment: The patient has had a persistent leukocytosis without clear signs of infection. ? if it is being driven due to stress. Continue to follow and monitor for signs of infection. (5) Syncope and collapse Current Visit: Yes Status: Acute Code(s): R55 - SYNCOPE AND COLLAPSE SNOMED Code(s): 163786251 Comment: Occured prior to admission secondary to severe anemia. (6) HTN (hypertension) Current Visit: Yes Status: Acute Code(s): I10 - ESSENTIAL (PRIMARY) HYPERTENSION SNOMED Code(s): 72199219 Comment: BP is moderately elevated. Monitor BP with increased dose of metoprolol. (7) COPD (chronic obstructive pulmonary disease) Current Visit: Yes Status: Acute Code(s): J44.9 - CHRONIC OBSTRUCTIVE PULMONARY DISEASE, UNSPECIFIED SNOMED Code(s): 81688978 Comment: Pt continues to have markedly diminsihed breath sounds in all lung marcos. No wheezing noted. Try to wean down O2. (8) Morbid obesity with BMI of 45.0-49.9, adult Current Visit: Yes Status: Acute Code(s): E66.01 - MORBID (SEVERE) OBESITY DUE TO EXCESS CALORIES; Z68.42 - BODY MASS INDEX (BMI) 45.0-49.9, ADULT SNOMED Code(s): 290107941 Comment: Diagnosis noted. (9) DVT prophylaxis Current Visit: Yes Status: Acute Code(s): VBY3909 - SNOMED Code(s): 765619276 Comment: SCDs alone secondary to severe anemia/GI bleed. (10) Full code status Current Visit: Yes Status: Acute Code(s): Z78.9 - OTHER SPECIFIED HEALTH STATUS SNOMED Code(s): 827405498
[2017-03-04] MEDS: ALPRAZolam TAB* 0.5 MG PO PRN (14:48)
[2017-03-04 17:15] LABS: Hematocrit 28 % (35-47); Hemoglobin 8.6 g/dl (12.0-16.0); Mean Corpuscular HGB Conc 30 g/dl (31-36); Mean Corpuscular Hemoglobin 25 pg (27-31); Mean Corpuscular Volume 84 fL (80-97); Mean Platelet Volume 8 um3 (7.4-10.4); Red Blood Count 3.38 10^6/ul (4.0-5.4); Red Cell Distribution Width 16 % (10.5-15); White Blood Count 11.8 10^3/ul (3.5-10.8)
[2017-03-04] MEDS: Furosemide TAB* 40 MG PO SCH (17:57)
[2017-03-04] MEDS ORDERED: Metoprolol Tartrate TAB* 50 mg PO SCH (21:00)
[2017-03-05 00:53] LABS: PCO2 Arterial 99 mmHg (35-45)
--- NOTE | 2017-03-05 01:08 | PN ---
Progress Note - Progress Note Note: Paged for patient refusing bipap and 13 beat run of vtach. Per RN patient was agreeable to do bipap with xanax that has been ordered last evening. Will give low dose xanax and place bipap. Will also check labs this evening.
[2017-03-05 02:28] LABS: BUN/Creatinine Ratio 43.3 (8-20); Calcium 8.9 mg/dL (8.6-10.3); EGFR Non-African American 224.7 (>60); Magnesium 1.9 mg/dL (1.9-2.7); Potassium 4.4 mmol/L (3.5-5.0)
[2017-03-05 07:49] LABS: Hematocrit 28 % (35-47); Hemoglobin 8.6 g/dl (12.0-16.0); Mean Corpuscular HGB Conc 31 g/dl (31-36); Mean Corpuscular Hemoglobin 26 pg (27-31); Mean Corpuscular Volume 83 fL (80-97); Mean Platelet Volume 9 um3 (7.4-10.4); Red Blood Count 3.35 10^6/ul (4.0-5.4); Red Cell Distribution Width 16 % (10.5-15); White Blood Count 11.8 10^3/ul (3.5-10.8)
--- NOTE | 2017-03-05 07:59 | PN ---
Subjective Date of Service: 03/05/17 Interval History: Pt is feeling better than she has been. She feels more alert. She states she is starving and thirsty. She finally started having stools last evening after being given lactulose. She has also had significant BRBPR. Family History: Unchanged from Admission Social History: Unchanged from Admission Past Medical History: Unchanged from Admission Objective Active Medications: Acetaminophen (Tylenol Tab*) 650 mg PO Q4H PRN PRN Reason: FEVER/PAIN Last Admin: 03/02/17 18:41 Dose: 650 mg Alprazolam (Xanax Tab*) 0.5 mg PO TID PRN PRN Reason: ANXIETY Last Admin: 03/04/17 14:48 Dose: 0.5 mg Amlodipine Besylate (Norvasc Tab*) 5 mg PO DAILY [facility] Last Admin: 03/04/17 09:24 Dose: 5 mg Metoprolol Tartrate (Lopressor Tab*) 100 mg PO BID [facility] Morphine Sulfate (Morphine Inj (Syringe)*) 4 mg IV Q4H PRN PRN Reason: PAIN Last Admin: 03/04/17 22:40 Dose: 4 mg Ondansetron HCl (Zofran Inj*) 4 mg IV Q6H PRN PRN Reason: NAUSEA Last Admin: 03/01/17 07:10 Dose: 4 mg Prochlorperazine Edisylate (Compazine Inj*) 10 mg IV Q6H PRN PRN Reason: NAUSEA/VOMITING Last Admin: 03/01/17 11:45 Dose: 10 mg Vital Signs 03/04/17 03/04/17 03/04/17 08:00 08:02 08:56 Temperature Pulse Rate 115 112 Respiratory 25 24 Rate Blood Pressure 137/78 (mmHg) O2 Sat by Pulse 97 94 94 Oximetry 03/04/17 03/04/17 03/04/17 09:00 09:04 10:00 Temperature Pulse Rate 118 118 122 Respiratory 27 25 21 Rate Blood Pressure 154/76 (mmHg) O2 Sat by Pulse 92 92 90 Oximetry 03/04/17 03/04/17 03/04/17 10:02 11:00 11:10 Temperature Pulse Rate 117 111 107 Respiratory 21 24 Rate Blood Pressure 103/76 127/79 (mmHg) O2 Sat by Pulse 92 89 96 Oximetry 03/04/17 03/04/17 03/04/17 11:12 12:00 12:55 Temperature 97.9 F 97.7 F Pulse Rate 116 117 Respiratory 24 20 Rate Blood Pressure 175/69 (mmHg) O2 Sat by Pulse 95 97 Oximetry 03/04/17 03/04/17 03/04/17 14:48 15:45 15:57 Temperature 96.9 F Pulse Rate 118 Respiratory 22 20 18 Rate Blood Pressure 157/83 (mmHg) O2 Sat by Pulse 99 Oximetry 03/04/17 03/04/17 03/04/17 19:43 20:00 22:40 Temperature 98.4 F Pulse Rate 124 Respiratory 28 20 20 Rate Blood Pressure 170/77 (mmHg) O2 Sat by Pulse 99 Oximetry 03/04/17 03/04/17 03/05/17 23:40 23:49 03:55 Temperature 97.6 F Pulse Rate 105 102 Respiratory 20 20 20 Rate Blood Pressure 166/86 121/58 (mmHg) O2 Sat by Pulse 97 100 Oximetry 03/05/17 07:15 Temperature 98.4 F Pulse Rate 117 Respiratory 16 Rate Blood Pressure 158/68 (mmHg) O2 Sat by Pulse 98 Oximetry Oxygen Devices in Use Now: Nasal Cannula - 98%-5L Appearance: Morbidly obese middle aged female sitting up in a chair, much more alert than previous, NAD Eyes: No Scleral Icterus Ears/Nose/Mouth/Throat: Mucous Membranes Moist Respiratory: Symmetrical Chest Expansion and Respiratory Effort, Clear to Auscultation Cardiovascular: NL Sounds; No Murmurs; No JVD, No Edema, - - tachycardic but regular Abdominal: NL Sounds; No Tenderness; No Distention Extremities: No Clubbing, Cyanosis Skin: No Rash or Ulcers, No Nodules or Sclerosis Neurological: Alert and Oriented x 3 Result Diagrams: 03/04/17 17:04 03/05/17 02:07 Additional Lab and Data: . Microbiology and Other Data: Microbiology 02/25/17 20:56 Nasal Screen MRSA (PCR)([facility]) - Final Nasal Mrsa Negative Assess/Plan/Problems-Billing Ms Pickett is a 61 yo F who has a h/o HTN and COPD who presented to the ER with c/ o syncope and rectal bleeding x7 days and was found to be severely anemic. - Patient Problems (1) Atrial fibrillation with RVR Current Visit: Yes Status: Acute Code(s): I48.91 - UNSPECIFIED ATRIAL FIBRILLATION SNOMED Code(s): 076225573646667 Comment: Pt remains tachycardic but it is sinus. Take metoprolol back to 50mg BID and resume diltiazem CD 360mg daily. (2) Hypercapnic respiratory failure Current Visit: Yes Status: Acute Code(s): J96.92 - RESPIRATORY FAILURE, UNSPECIFIED WITH HYPERCAPNIA SNOMED Code(s): 794034771 Comment: The patient is much more alert today. I think the combination of hypercarbia and hyperammoniemia is the cause of her lethargy. Continue BiPAP while sleeping if she will tolerate. Her pH has compensated making me believe the hyperammonemia may be a bigger player. (3) Lower GI hemorrhage Current Visit: Yes Status: Acute Code(s): K92.2 - GASTROINTESTINAL HEMORRHAGE, UNSPECIFIED SNOMED Code(s): 51089177 Comment: Smiley diverticular bleed. She again started bleeding last night. Will check rectal exam when pt is up to eval for hemorrhoid as she and nursing state she has a large hemorrhoid. Follow up H/H this AM completely stable making me think the bleeding seen last night may be hemorrhoidal. Will follow. (4) Leukocytosis Current Visit: Yes Status: Acute Code(s): D72.829 - ELEVATED WHITE BLOOD CELL COUNT, UNSPECIFIED SNOMED Code(s): 939382851 Comment: Leukocytosis has improved some but not normalized. Continue to monitor for signs of infection. (5) Syncope and collapse Current Visit: Yes Status: Acute Code(s): R55 - SYNCOPE AND COLLAPSE SNOMED Code(s): 397252735 Comment: Occured prior to admission secondary to severe anemia. (6) HTN (hypertension) Current Visit: Yes Status: Acute Code(s): I10 - ESSENTIAL (PRIMARY) HYPERTENSION SNOMED Code(s): 39115712 Comment: BP is moderately elevated but she has not been on all of her usual home meds. Monitor with addition of diltiazem. (7) COPD (chronic obstructive pulmonary disease) Current Visit: Yes Status: Acute Code(s): J44.9 - CHRONIC OBSTRUCTIVE PULMONARY DISEASE, UNSPECIFIED SNOMED Code(s): 10442117 Comment: Pt continues to have markedly diminsihed breath sounds in all lung marcos. No wheezing noted. Now that the patient is more alert may be able to wean down O2. (8) Morbid obesity with BMI of 45.0-49.9, adult Current Visit: Yes Status: Acute Code(s): E66.01 - MORBID (SEVERE) OBESITY DUE TO EXCESS CALORIES; Z68.42 - BODY MASS INDEX (BMI) 45.0-49.9, ADULT SNOMED Code(s): 701939701 Comment: Diagnosis noted. (9) DVT prophylaxis Current Visit: Yes Status: Acute Code(s): SWM3579 - SNOMED Code(s): 976453066 Comment: SCDs alone secondary to severe anemia/GI bleed. (10) Full code status Current Visit: Yes Status: Acute Code(s): Z78.9 - OTHER SPECIFIED HEALTH STATUS SNOMED Code(s): 399323920
[2017-03-05] MEDS: ALPRAZolam TAB* 0.5 MG PO PRN ×3 (08:19→23:43)
[2017-03-05] MEDS: amLODIPine TAB* 5 MG PO SCH (08:20)
[2017-03-05] MEDS: Metoprolol Tartrate TAB* 50 mg PO SCH ×2 (08:20→19:55)
[2017-03-05] MEDS: Diltiazem CD CAP* 180 MG PO SCH (08:20)
[2017-03-05] MEDS ORDERED: Metoprolol Tartrate TAB* 50 mg PO SCH (09:00)
[2017-03-05] MEDS: Morphine INJ* 4 MG/ML 1 ML SYRINGE IV PRN ×3 (10:14→19:54)
[2017-03-06] MEDS: Morphine INJ* 4 MG/ML 1 ML SYRINGE IV PRN ×2 (05:26→10:02)
[2017-03-06 08:32] LABS: Hematocrit 28 % (35-47); Hemoglobin 8.5 g/dl (12.0-16.0); Mean Corpuscular HGB Conc 31 g/dl (31-36); Mean Corpuscular Hemoglobin 26 pg (27-31); Mean Corpuscular Volume 83 fL (80-97); Mean Platelet Volume 8 um3 (7.4-10.4); Red Blood Count 3.34 10^6/ul (4.0-5.4); Red Cell Distribution Width 16 % (10.5-15); White Blood Count 9.7 10^3/ul (3.5-10.8)
[2017-03-06 08:52] LABS: BUN/Creatinine Ratio 29.4 (8-20); Calcium 9.2 mg/dL (8.6-10.3); EGFR African American 250.1 (>60); EGFR Non-African American 194.5 (>60); Potassium 4.8 mmol/L (3.5-5.0)
[2017-03-06] MEDS: Metoprolol Tartrate TAB* 50 mg PO SCH ×2 (10:01→22:01)
[2017-03-06] MEDS: Diltiazem CD CAP* 180 MG PO SCH (10:01)
[2017-03-06] MEDS: amLODIPine TAB* 5 MG PO SCH (10:01)
[2017-03-06] MEDS: ALPRAZolam TAB* 0.5 MG PO PRN (10:01)
--- NOTE | 2017-03-06 11:08 | PN ---
Subjective Date of Service: 03/06/17 Interval History: Pt is feeling ok-even better than she had been. She denies any pain. She is concerned about the swelling in her feet stating it is much more than normal. She states she used the BiPAP for a little bit overnight. Family History: Unchanged from Admission Social History: Unchanged from Admission Past Medical History: Unchanged from Admission Objective Active Medications: Acetaminophen (Tylenol Tab*) 650 mg PO Q4H PRN PRN Reason: FEVER/PAIN Last Admin: 03/02/17 18:41 Dose: 650 mg Alprazolam (Xanax Tab*) 0.5 mg PO TID PRN PRN Reason: ANXIETY Last Admin: 03/06/17 10:01 Dose: 0.5 mg Amlodipine Besylate (Norvasc Tab*) 5 mg PO DAILY [facility] Last Admin: 03/06/17 10:01 Dose: 5 mg Diltiazem HCl (Cardizem Cd Cap*) 360 mg PO DAILY [facility] Last Admin: 03/06/17 10:01 Dose: 360 mg Lactulose (Lactulose*) 30 ml PO DAILY [facility] Metoprolol Tartrate (Lopressor Tab*) 75 mg PO BID [facility] Morphine Sulfate (Morphine Inj (Syringe)*) 4 mg IV Q4H PRN PRN Reason: PAIN Last Admin: 03/06/17 10:02 Dose: 4 mg Ondansetron HCl (Zofran Inj*) 4 mg IV Q6H PRN PRN Reason: NAUSEA Last Admin: 03/01/17 07:10 Dose: 4 mg Prochlorperazine Edisylate (Compazine Inj*) 10 mg IV Q6H PRN PRN Reason: NAUSEA/VOMITING Last Admin: 03/01/17 11:45 Dose: 10 mg Vital Signs 03/05/17 03/05/17 03/05/17 11:10 13:12 14:45 Temperature 98.4 F Pulse Rate 100 Respiratory 14 24 16 Rate Blood Pressure 116/55 (mmHg) O2 Sat by Pulse 98 Oximetry 03/05/17 03/05/17 03/05/17 15:39 15:45 16:01 Temperature 98.0 F Pulse Rate 95 Respiratory 16 16 24 Rate Blood Pressure 126/47 (mmHg) O2 Sat by Pulse 97 Oximetry 06/17/17 06/17/17 06/17/17 17:39 19:37 19:54 Temperature 98.5 F Pulse Rate 101 Respiratory 16 26 21 Rate Blood Pressure 128/54 (mmHg) O2 Sat by Pulse 98 Oximetry 03/05/17 03/05/17 03/05/17 20:00 20:54 23:39 Temperature 98.1 F Pulse Rate 95 Respiratory 20 22 20 Rate Blood Pressure 111/61 (mmHg) O2 Sat by Pulse 93 Oximetry 03/05/17 03/06/17 03/06/17 23:43 00:08 01:43 Temperature Pulse Rate Respiratory 23 23 Rate Blood Pressure (mmHg) O2 Sat by Pulse 96 Oximetry 03/06/17 03/06/17 03/06/17 03:08 05:26 06:26 Temperature Pulse Rate 106 Respiratory 18 20 19 Rate Blood Pressure 159/63 (mmHg) O2 Sat by Pulse 97 Oximetry 03/06/17 03/06/17 03/06/17 08:00 08:10 10:01 Temperature 98.4 F Pulse Rate 109 Respiratory 16 19 16 Rate Blood Pressure 149/65 (mmHg) O2 Sat by Pulse 96 Oximetry 03/06/17 10:02 Temperature Pulse Rate Respiratory 16 Rate Blood Pressure (mmHg) O2 Sat by Pulse Oximetry Oxygen Devices in Use Now: Nasal Cannula - 96%-4L Appearance: Middle aged morbidly obese female sitting up in a chair, appears sleepy, NAD Eyes: No Scleral Icterus Ears/Nose/Mouth/Throat: Mucous Membranes Moist Respiratory: Symmetrical Chest Expansion and Respiratory Effort, - - markedly diminished breath sounds in all lung marcos Cardiovascular: NL Sounds; No Murmurs; No JVD, - - tachycardic but regular,1-2+ pitting edema of the B/L feet Abdominal: NL Sounds; No Tenderness; No Distention Extremities: No Clubbing, Cyanosis Skin: No Rash or Ulcers, No Nodules or Sclerosis Neurological: - - sleepy but seems appropriate in answering questions Result Diagrams: 03/06/17 08:17 03/06/17 08:17 Additional Lab and Data: . Microbiology and Other Data: Microbiology 02/25/17 20:56 Nasal Screen MRSA (PCR)([facility]) - Final Nasal Mrsa Negative Assess/Plan/Problems-Billing Ms Pickett is a 61 yo F who has a h/o HTN and COPD who presented to the ER with c/ o syncope and rectal bleeding x7 days and was found to be severely anemic. - Patient Problems (1) Atrial fibrillation with RVR Current Visit: Yes Status: Acute Code(s): I48.91 - UNSPECIFIED ATRIAL FIBRILLATION SNOMED Code(s): 423958405900660 Comment: HR remains tachycardic but in sinus. Will give metoprolol 75mg BID and diltiazem CD 360mg daily. No anticoagulation at this time given her recent significant GI bleed. (2) Hypercapnic respiratory failure Current Visit: Yes Status: Acute Code(s): J96.92 - RESPIRATORY FAILURE, UNSPECIFIED WITH HYPERCAPNIA SNOMED Code(s): 798983182 Comment: The patient is much more alert today. I think the combination of hypercarbia and hyperammoniemia is the cause of her lethargy. Continue BiPAP while sleeping if she will tolerate. Her pH has compensated making me believe the hyperammonemia may be a bigger player. Ammonia level is up again today-will give lactulose again. Stop xanax and morphine. (3) Lower GI hemorrhage Current Visit: Yes Status: Acute Code(s): K92.2 - GASTROINTESTINAL HEMORRHAGE, UNSPECIFIED SNOMED Code(s): 82919005 Comment: Likley diverticular bleed. She again started bleeding last night. H/ H stable. No need at this time for further GI testing at this point. (4) Leukocytosis Current Visit: Yes Status: Acute Code(s): D72.829 - ELEVATED WHITE BLOOD CELL COUNT, UNSPECIFIED SNOMED Code(s): 985821371 Comment: Leukocytosis has normalized without Abx. Continue to monitor for signs of infection. (5) Syncope and collapse Current Visit: Yes Status: Acute Code(s): R55 - SYNCOPE AND COLLAPSE SNOMED Code(s): 166270950 Comment: Occured prior to admission secondary to severe anemia. (6) HTN (hypertension) Current Visit: Yes Status: Acute Code(s): I10 - ESSENTIAL (PRIMARY) HYPERTENSION SNOMED Code(s): 24613472 Comment: BP is better today. Continue to follow and adjust meds if needed. (7) COPD (chronic obstructive pulmonary disease) Current Visit: Yes Status: Acute Code(s): J44.9 - CHRONIC OBSTRUCTIVE PULMONARY DISEASE, UNSPECIFIED SNOMED Code(s): 15050966 Comment: Pt continues to have markedly diminsihed breath sounds in all lung marcos. No wheezing noted. Now that the patient is more alert may be able to wean down O2. (8) Morbid obesity with BMI of 45.0-49.9, adult Current Visit: Yes Status: Acute Code(s): E66.01 - MORBID (SEVERE) OBESITY DUE TO EXCESS CALORIES; Z68.42 - BODY MASS INDEX (BMI) 45.0-49.9, ADULT SNOMED Code(s): 659636322 Comment: Diagnosis noted. (9) DVT prophylaxis Current Visit: Yes Status: Acute Code(s): LCR4019 - SNOMED Code(s): 490573332 Comment: SCDs alone secondary to severe anemia/GI bleed. (10) Full code status Current Visit: Yes Status: Acute Code(s): Z78.9 - OTHER SPECIFIED HEALTH STATUS SNOMED Code(s): 036809818
[2017-03-06] MEDS ORDERED: Furosemide IV* 10 MG/ML 2 ML VIAL (20 MG) IV ONE (11:24)
[2017-03-06] MEDS: Lactulose* 15 ML UDC PO SCH (11:48)
[2017-03-06] MEDS: Acetaminophen TAB* 325 MG PO PRN (14:42)
[2017-03-07] MEDS: Acetaminophen TAB* 325 MG PO PRN (03:04)
--- NOTE | 2017-03-07 10:38 | PN ---
Subjective Date of Service: 03/07/17 Interval History: Pt is feeling better today. SHe states she feels better when she is lying down. SHe states when she is sitting up she feels as if she is "not getting enough air." She denies any pain other than in her feet. The patient states she did not have a BM yesterday but the nursing note indicates she had BRBPR last night. Family History: Unchanged from Admission Social History: Unchanged from Admission Past Medical History: Unchanged from Admission Objective Active Medications: Acetaminophen (Tylenol Tab*) 650 mg PO Q4H PRN PRN Reason: FEVER/PAIN Last Admin: 03/07/17 03:04 Dose: 650 mg Amlodipine Besylate (Norvasc Tab*) 5 mg PO DAILY [facility] Last Admin: 03/06/17 10:01 Dose: 5 mg Diltiazem HCl (Cardizem Cd Cap*) 360 mg PO DAILY [facility] Last Admin: 03/06/17 10:01 Dose: 360 mg Furosemide (Lasix Tab*) 40 mg PO DAILY [facility] Lactulose (Lactulose*) 15 ml PO DAILY [facility] Last Admin: 03/06/17 11:48 Dose: 15 ml Metoprolol Tartrate (Lopressor Tab*) 75 mg PO BID [facility] Last Admin: 03/06/17 22:01 Dose: 75 mg Ondansetron HCl (Zofran Inj*) 4 mg IV Q6H PRN PRN Reason: NAUSEA Last Admin: 03/01/17 07:10 Dose: 4 mg Prochlorperazine Edisylate (Compazine Inj*) 10 mg IV Q6H PRN PRN Reason: NAUSEA/VOMITING Last Admin: 03/01/17 11:45 Dose: 10 mg Vital Signs 03/06/17 03/06/17 03/06/17 11:02 11:36 12:01 Temperature 98.1 F Pulse Rate 100 Respiratory 16 20 16 Rate Blood Pressure 135/72 (mmHg) O2 Sat by Pulse 97 Oximetry 03/06/17 03/06/17 03/06/17 17:03 20:00 20:29 Temperature 98.4 F Pulse Rate 98 112 Respiratory 18 18 18 Rate Blood Pressure 119/58 134/60 (mmHg) O2 Sat by Pulse 96 96 Oximetry 03/06/17 03/07/17 03/07/17 23:59 00:43 03:25 Temperature 97.9 F Pulse Rate 84 91 Respiratory 19 16 Rate Blood Pressure 148/67 131/60 (mmHg) O2 Sat by Pulse 97 96 94 Oximetry 03/07/17 03/07/17 07:24 08:00 Temperature 98.3 F Pulse Rate 105 Respiratory 20 22 Rate Blood Pressure 156/60 (mmHg) O2 Sat by Pulse 92 Oximetry Oxygen Devices in Use Now: Nasal Cannula Appearance: Morbidly obese middle aged female sitting on the edge of the bed, NAD Eyes: No Scleral Icterus Ears/Nose/Mouth/Throat: Mucous Membranes Moist Respiratory: Symmetrical Chest Expansion and Respiratory Effort, Clear to Auscultation - diminished breath sounds in all lung marcos Cardiovascular: NL Sounds; No Murmurs; No JVD, - - tachycardic but regular, 1+ pitting edema of ankles/feet Abdominal: NL Sounds; No Tenderness; No Distention Extremities: No Clubbing, Cyanosis Skin: No Rash or Ulcers, No Nodules or Sclerosis Neurological: Alert and Oriented x 3 Result Diagrams: 03/06/17 08:17 03/06/17 08:17 Additional Lab and Data: . Microbiology and Other Data: Microbiology 02/25/17 20:56 Nasal Screen MRSA (PCR)(SERGIO) - Final Nasal Mrsa Negative Assess/Plan/Problems-Billing Ms Pickett is a 61 yo F who has a h/o HTN and COPD who presented to the ER with c/ o syncope and rectal bleeding x7 days and was found to be severely anemic. - Patient Problems (1) Atrial fibrillation with RVR Current Visit: Yes Status: Acute Code(s): I48.91 - UNSPECIFIED ATRIAL FIBRILLATION SNOMED Code(s): 506321661698423 Comment: HR remains tachycardic but in sinus. Despite increased metoprolol and resuming diltiazem she remains tachycardic in the 110's. For now will continue to monitor. (2) Hypercapnic respiratory failure Current Visit: Yes Status: Acute Code(s): J96.92 - RESPIRATORY FAILURE, UNSPECIFIED WITH HYPERCAPNIA SNOMED Code(s): 714158515 Comment: Continue BiPAP if pt will tolerate. She has not been using reliably and I do not want to sedate her for her to use it. (3) Lower GI hemorrhage Current Visit: Yes Status: Acute Code(s): K92.2 - GASTROINTESTINAL HEMORRHAGE, UNSPECIFIED SNOMED Code(s): 67076918 Comment: The patient reportedly had BRBPR last night. ? hemorrhoidal bleeding. Check H/H now. Will do rectal exam once pt back in bed (now up to chair). (4) Leukocytosis Current Visit: Yes Status: Acute Code(s): D72.829 - ELEVATED WHITE BLOOD CELL COUNT, UNSPECIFIED SNOMED Code(s): 581474773 Comment: Leukocytosis has normalized without Abx. Continue to monitor for signs of infection. (5) Syncope and collapse Current Visit: Yes Status: Acute Code(s): R55 - SYNCOPE AND COLLAPSE SNOMED Code(s): 943935595 Comment: Occured prior to admission secondary to severe anemia. (6) HTN (hypertension) Current Visit: Yes Status: Acute Code(s): I10 - ESSENTIAL (PRIMARY) HYPERTENSION SNOMED Code(s): 18555166 Comment: BP is under fair control. Continue current medication regimen. (7) COPD (chronic obstructive pulmonary disease) Current Visit: Yes Status: Acute Code(s): J44.9 - CHRONIC OBSTRUCTIVE PULMONARY DISEASE, UNSPECIFIED SNOMED Code(s): 90472405 Comment: Pt continues to have markedly diminsihed breath sounds in all lung marcos. No wheezing noted. Now that the patient is more alert may be able to wean down O2. (8) Morbid obesity with BMI of 45.0-49.9, adult Current Visit: Yes Status: Acute Code(s): E66.01 - MORBID (SEVERE) OBESITY DUE TO EXCESS CALORIES; Z68.42 - BODY MASS INDEX (BMI) 45.0-49.9, ADULT SNOMED Code(s): 535201780 Comment: Diagnosis noted. (9) DVT prophylaxis Current Visit: Yes Status: Acute Code(s): AJW6756 - SNOMED Code(s): 107911163 Comment: SCDs alone secondary to severe anemia/GI bleed. (10) Full code status Current Visit: Yes Status: Acute Code(s): Z78.9 - OTHER SPECIFIED HEALTH STATUS SNOMED Code(s): 416564603
[2017-03-07] MEDS: Furosemide TAB* 40 MG PO SCH (11:24)
[2017-03-07] MEDS: Lactulose* 15 ML UDC PO SCH (11:24)
[2017-03-07] MEDS: Diltiazem CD CAP* 180 MG PO SCH (11:25)
[2017-03-07] MEDS: amLODIPine TAB* 5 MG PO SCH (11:25)
[2017-03-07] MEDS: Metoprolol Tartrate TAB* 50 mg PO SCH ×2 (11:25→20:41)
[2017-03-07 11:40] LABS: Hematocrit 29 % (35-47); Mean Corpuscular HGB Conc 31 g/dl (31-36); Mean Corpuscular Hemoglobin 25 pg (27-31); Mean Corpuscular Volume 82 fL (80-97); Mean Platelet Volume 8 um3 (7.4-10.4); Red Blood Count 3.57 10^6/ul (4.0-5.4); Red Cell Distribution Width 16 % (10.5-15); White Blood Count 8.3 10^3/ul (3.5-10.8)
[2017-03-07 11:55] LABS: BUN/Creatinine Ratio 35.1 (8-20); Calcium 9.5 mg/dL (8.6-10.3); EGFR African American 226.8 (>60); EGFR Non-African American 176.4 (>60); Potassium 4.3 mmol/L (3.5-5.0)
[2017-03-08] MEDS: Acetaminophen TAB* 325 MG PO PRN ×4 (01:00→20:38)
[2017-03-08 06:35] LABS: Hematocrit 28 % (35-47); Hemoglobin 8.6 g/dl (12.0-16.0); Mean Corpuscular HGB Conc 31 g/dl (31-36); Mean Corpuscular Hemoglobin 25 pg (27-31); Mean Corpuscular Volume 82 fL (80-97); Mean Platelet Volume 9 um3 (7.4-10.4); Red Cell Distribution Width 16 % (10.5-15); White Blood Count 9.6 10^3/ul (3.5-10.8)
[2017-03-08] MEDS: Furosemide TAB* 40 MG PO SCH (07:37)
[2017-03-08] MEDS: amLODIPine TAB* 5 MG PO SCH (07:37)
[2017-03-08] MEDS: Lactulose* 15 ML UDC PO SCH (07:38)
[2017-03-08] MEDS: Metoprolol Tartrate TAB* 50 mg PO SCH ×2 (07:38→20:36)
[2017-03-08] MEDS: Diltiazem CD CAP* 180 MG PO SCH (07:38)
--- NOTE | 2017-03-08 11:37 | PN ---
Subjective Date of Service: 03/08/17 Interval History: C/O AUGUST but feels she could manage at homeMild cough, scant sputum, not unusual for her. She states she quit smoking about 3 yrs ao. She has a nebulizer and O2 at home. Family History: Unchanged from Admission Social History: Unchanged from Admission Past Medical History: Unchanged from Admission Objective Active Medications: Acetaminophen (Tylenol Tab*) 650 mg PO Q4H PRN PRN Reason: FEVER/PAIN Last Admin: 03/08/17 05:20 Dose: 650 mg Amlodipine Besylate (Norvasc Tab*) 5 mg PO DAILY [facility] Last Admin: 03/08/17 07:37 Dose: 5 mg Diltiazem HCl (Cardizem Cd Cap*) 360 mg PO DAILY [facility] Last Admin: 03/08/17 07:38 Dose: 360 mg Furosemide (Lasix Tab*) 40 mg PO DAILY [facility] Last Admin: 03/08/17 07:37 Dose: 40 mg Lactulose (Lactulose*) 15 ml PO DAILY [facility] Last Admin: 03/08/17 07:38 Dose: 15 ml Metoprolol Tartrate (Lopressor Tab*) 75 mg PO BID [facility] Last Admin: 03/08/17 07:38 Dose: 75 mg Ondansetron HCl (Zofran Inj*) 4 mg IV Q6H PRN PRN Reason: NAUSEA Last Admin: 03/01/17 07:10 Dose: 4 mg Prochlorperazine Edisylate (Compazine Inj*) 10 mg IV Q6H PRN PRN Reason: NAUSEA/VOMITING Last Admin: 03/01/17 11:45 Dose: 10 mg Vital Signs 03/07/17 03/07/17 03/07/17 11:50 16:14 16:31 Temperature 98.0 F 98.0 F 98.0 F Pulse Rate 108 101 99 Respiratory 16 20 20 Rate Blood Pressure 144/103 149/76 149/76 (mmHg) O2 Sat by Pulse 92 93 92 Oximetry 03/07/17 03/07/17 03/07/17 19:23 20:00 20:14 Temperature 98.4 F 98.4 F Pulse Rate 109 109 Respiratory 24 24 24 Rate Blood Pressure 150/60 150/60 (mmHg) O2 Sat by Pulse 96 96 Oximetry 06/19/17 06/20/17 06/20/17 23:29 03:15 07:17 Temperature 98.2 F 97.8 F Pulse Rate 90 92 Respiratory 16 20 20 Rate Blood Pressure 123/64 117/57 (mmHg) O2 Sat by Pulse 96 95 Oximetry 03/08/17 03/08/17 07:24 08:19 Temperature 97.9 F Pulse Rate 89 Respiratory 20 Rate Blood Pressure 111/55 (mmHg) O2 Sat by Pulse Oximetry Oxygen Devices in Use Now: Nasal Cannula Appearance: Alert, in a chair. In good spirits. Looks comfortable. No cough during my visit. Eyes: No Scleral Icterus Neck: NL Appearance and Movements; NL JVP, No Thyroid Enlargement, Masses Respiratory: Symmetrical Chest Expansion and Respiratory Effort, Clear to Auscultation, Clear to Percussion Cardiovascular: RRR, No Edema, - - systolic murmur RSB Extremities: No Clubbing, Cyanosis - Tr pedal edema BL, - Skin: No Rash or Ulcers, No Nodules or Sclerosis, - Neurological: Alert and Oriented x 3, NL Sensation Result Diagrams: 03/08/17 06:20 03/07/17 11:00 Additional Lab and Data: . Microbiology and Other Data: Microbiology 02/25/17 20:56 Nasal Screen MRSA (PCR)(SERGIO) - Final Nasal Mrsa Negative Assess/Plan/Problems-Billing Ms Pickett is a 61 yo F who has a h/o HTN and COPD who presented to the ER with c/ o syncope and rectal bleeding x7 days and was found to be severely anemic. - Patient Problems (1) Lower GI hemorrhage Current Visit: Yes Status: Acute Code(s): K92.2 - GASTROINTESTINAL HEMORRHAGE, UNSPECIFIED SNOMED Code(s): 97669683 Comment: Hgb 9.6 on 03/08 As of 14:30 hrs 03/08 patient still having some BRBPR. Check CBC 03/09. (2) COPD (chronic obstructive pulmonary disease) Current Visit: Yes Status: Acute Code(s): J44.9 - CHRONIC OBSTRUCTIVE PULMONARY DISEASE, UNSPECIFIED SNOMED Code(s): 45117150 Comment: Stable. (3) Morbid obesity with BMI of 45.0-49.9, adult Current Visit: Yes Status: Acute Code(s): E66.01 - MORBID (SEVERE) OBESITY DUE TO EXCESS CALORIES; Z68.42 - BODY MASS INDEX (BMI) 45.0-49.9, ADULT SNOMED Code(s): 815159345 Comment: BMI 49.3. (4) HTN (hypertension) Current Visit: Yes Status: Acute Code(s): I10 - ESSENTIAL (PRIMARY) HYPERTENSION SNOMED Code(s): 37195571 Comment: BP is under fair control. Continue current medication regimen.
[2017-03-09 06:34] LABS: Hematocrit 25 % (35-47); Hemoglobin 7.9 g/dl (12.0-16.0); Mean Corpuscular HGB Conc 31 g/dl (31-36); Mean Corpuscular Hemoglobin 26 pg (27-31); Mean Corpuscular Volume 82 fL (80-97); Mean Platelet Volume 9 um3 (7.4-10.4); Red Blood Count 3.07 10^6/ul (4.0-5.4); Red Cell Distribution Width 17 % (10.5-15); White Blood Count 8.2 10^3/ul (3.5-10.8)
[2017-03-09 08:09] VITALS: BP 124/62
[2017-03-09] MEDS: amLODIPine TAB* 5 MG PO SCH (08:18)
[2017-03-09] MEDS: Diltiazem CD CAP* 180 MG PO SCH (08:18)
[2017-03-09] MEDS: Lactulose* 15 ML UDC PO SCH (08:18)
[2017-03-09] MEDS: Furosemide TAB* 40 MG PO SCH (08:19)
[2017-03-09] MEDS: Metoprolol Tartrate TAB* 50 mg PO SCH (08:19)
[2017-03-09] MEDS: Acetaminophen TAB* 325 MG PO PRN (08:24)
--- NOTE | 2017-03-09 11:14 | DCNOTE ---
Notified by nursing that patient with continued BRBPR this morning but she is asking to leave the hospital. Explained my desire to continue monitoring the H/H , possibly give blood if needed and have GI possibly re-evaluate and see if any procedure may be indicated at this time as she seems to be having another episode. She declines any further hospitalization. Says she is agreeable to outpatient follow-up and lab work if needed. She says she has had this issue ongoing for years and feels that she will be OK at home. Still very hesitant to the idea of any further transfusions at this point. She is AOx3 and appropriate. I feel that she has medical decision making capacity at this time and she was provided with AMA paperwork which she has signed. She will still be able to get some additional nursing services. She says at this point she would not comply with CPAP or BiPAP at home. I encouraged her to f/u with her PCP Dr. Hernandez and consider a sleep study and possible fitting for more comfortable overnight PPV.
--- NOTE | 2017-03-10 09:55 | DS ---
CC: Dr. Trey Hernandez. DISCHARGE SUMMARY: DATE OF ADMISSION: 02/25/17 DATE OF DISCHARGE: 03/09/17 The patient left against medical advice. PRIMARY CARE PROVIDER: Dr. Trey Hernandez. DISCHARGE MEDICATIONS REGIMEN: 1. Ferrous sulfate 325 mg by mouth 3 times daily. 2. Lactulose 15 mL by mouth daily. 3. Metoprolol tartrate 75 mg by mouth 3 times daily. 4. Amlodipine 5 mg by mouth daily. 5. Diltiazem 360 mg by mouth daily. 6. Lasix 40 mg by mouth daily. 7. [place] 1 tablet by mouth 2 times daily as needed for pain. PRIMARY DISCHARGE DIAGNOSES: 1. Lower gastrointestinal bleed. 2. Acute blood anemia. 3. Hypercarbic respiratory failure. 4. Hyperammonemia. SECONDARY DIAGNOSES: 1. Hypertension. 2. Morbid obesity. 3. Chronic obstructive pulmonary disease on home oxygen. 4. Hypothyroidism. 5. Chronic pain. STUDIES DONE DURING HOSPITALIZATION: CT of the brain without contrast. Impression: No evidence for acute intracranial abnormality. Chest x-ray, impression: Cardiomegaly with pulmonary interstitial edema. Transthoracic echocardiogram, conclusions: Study is technically limited due to poor parasternal windows, moderate concentric LVH, prominent septal knuckle, left ventricle appears hyperdynamic, mild increase in the aortic and LVOT velocities consistent with hyperdynamic state. Estimated EF was 60% to 65%. Abnormal left ventricular diastolic filling is observed consistent with impaired relaxation. Mild to moderately dilated left atrium, mildly increased right ventricular wall thickness, mildly thickened aortic valve leaflets, mild aortic stenosis, trace to mild aortic regurgitation, mitral valve leaflet mobility is mildly restricted, mild mitral stenosis, trace tricuspid regurgitation, echogenicity noted in RA, possible eustachian valve, normal variant. CONSULTANTS DURING HOSPITALIZATION: Dr. Serg Chin, gastroenterology. HISTORY OF PRESENT ILLNESS AND HOSPITAL SUMMARY: Please see the full history by Dr. Joan Wellington for full details. Briefly, Ms. Pickett is a 61-year-old female with a past medical history as above who presented to the hospital with bright red blood per rectum that had been ongoing for about 1 week. In the ED she was found to be hypoxemic with a hemoglobin of 7 and heme-positive stool. She was transferred to the ICU for a GI workup and transfusion. The patient also had respiratory acidosis on admission and BiPAP was ordered. After arriving in the ICU patient refused blood transfusion and had ongoing issues keeping her BiPAP on. Her hemoglobin continued to trend down with a beth at 6.0. Dr. Chin evaluated the patient and it seemed that by then, the bleeding may have stopped. She did not proceed with any endoscopy. It was felt that the bleeding was possibly diverticular in nature. I suppose a hemorrhoid internally could be possible as well. After a few days, the patient finally accepted blood transfusion. She received 2 units. On the following day she was more lethargic with a worsening ABG. She was transferred to the ICU , placed on BiPAP. She continued to struggle with compliance with the BiPAP and occasionally required sedation in order to keep it on. Once stabilized she was transferred back to the floor; however, in the days leading up to discharge the patient began to have bright red blood per rectum again. The patient also had elevated ammonia levels and was started on lactulose. Her lethargy significantly improved. My first encounter with the patient was on the day of discharge. She had had ongoing bright red blood per rectum for the past 1 to 2 days. However, on the day of discharge it was noted that her hemoglobin and hematocrit were beginning to trend back down, were 7.9 and 25. On speaking with the patient she stated she did not want to stay in the hospital any longer. I could not convince her to stay for continued monitoring, possible blood transfusions, or further GI workup. The patient states she has had these ongoing symptoms for years and she feels that she will be able to manage it at home along with the help of her PCP Dr. Hernandez. She states she will get in to see Dr. Hernandez soon. She also states at this time she would refuse any further transfusions. The patient signed an against medical advice form and was discharged home on oral iron as well as daily lactulose. She will have some additional nursing services set up for her at home. TIME SPENT: Total time spent on this discharge 60 minutes. This is a summary of the hospitalization, please see the full medical record for further details. [id number]/CPS #: [id number] MTDD
== END 2017-03-09 13:43 | disposition left against medical advice (07) | DRG 244 ==
LOC: ED 16:20 → ICU 17:38 → MEDTELE 02-26 12:21 → ICU 03-01 14:54 → MEDTELE 03-04 14:39
PROVIDERS: ADMIT Internal Medicine; ATTEND Hospitalist
PROC: 30233N1 Transfusion of Nonautologous Red Blood Cells into Peripheral Vein, Percutaneous Approach (ICD-10-PCS; principal; 2017-02-28)
PROC: 5A09557 Assistance with Respiratory Ventilation, Greater than 96 Consecutive Hours, Continuous Positive Airway Pressure (ICD-10-PCS; 2017-03-01)
DX: K57.91 Diverticulosis of intestine, part unspecified, without perforation or abscess with bleeding (principal); J96.92 Respiratory failure, unspecified with hypercapnia; I47.2 Ventricular tachycardia; Z99.81 Dependence on supplemental oxygen; E87.2 Acidosis; I95.9 Hypotension, unspecified; E72.20 Disorder of urea cycle metabolism, unspecified; D62 Acute posthemorrhagic anemia; Z68.42 Body mass index [BMI] 45.0-49.9, adult; J44.9 Chronic obstructive pulmonary disease, unspecified; I10 Essential (primary) hypertension; E05.90 Thyrotoxicosis, unspecified without thyrotoxic crisis or storm; E66.01 Morbid (severe) obesity due to excess calories; R40.0 Somnolence; R55 Syncope and collapse; I48.91 Unspecified atrial fibrillation; D72.829 Elevated white blood cell count, unspecified; G89.29 Other chronic pain; Z53.21 Procedure and treatment not carried out due to patient leaving prior to being seen by health care provider; E03.9 Hypothyroidism, unspecified; I08.3 Combined rheumatic disorders of mitral, aortic and tricuspid valves; K62.5 Hemorrhage of anus and rectum; K64.8 Other hemorrhoids; Z87.891 Personal history of nicotine dependence; Z82.49 Family history of ischemic heart disease and other diseases of the circulatory system; Z83.3 Family history of diabetes mellitus
CPT/HCPCS: 36415; 36600; 70450; 71010; 80048; 80053; 80307; 80320; 81003; 81015; 82140; 82270; 82550; 82803; 83605; 83735; 83880; 84443; 84484; 85014; 85018; 85025; 85027; 85610; 86850; 86900; 86901; 86922; 87641; 93005; 93306; 94640; 94660; 94760; A9270-GY; G0480; J0780; J1630; J1940; J2270; J2405; J2916; J3480; P9016; P9040

== ENCOUNTER 2018-01-21 02:58 | Inpatient (IN) | payer MEDICAID ==
[2018-01-21] MEDS ORDERED: Pantoprazole IV* 40 MG IV ONE (03:27)
[2018-01-21 03:52] LABS: ABS Basophils 0.1 10^3/ul (0-0.2); ABS Eosinophils 0.2 10^3/ul (0-0.6); ABS Monocytes 0.9 10^3/ul (0-0.8); ABS Neutrophils 6.1 10^3/ul (1.5-7.7); ABS Nucleated RBC 0 10^3/ul; Eosinophil % 2.4 % (0-6); Hematocrit 31 % (35-47); Hemoglobin 9.7 g/dl (12.0-16.0); Lymphocyte % 11.8 % (25-47); Mean Corpuscular HGB Conc 31 g/dl (31-36); Mean Corpuscular Hemoglobin 23 pg (27-31); Mean Corpuscular Volume 73 fL (80-97); Mean Platelet Volume 8.8 um3 (7.4-10.4); Nucleated Red Blood Cells % 0; Platelet Count 274 10^3/ul (150-450); Red Blood Count 4.26 10^6/ul (4.0-5.4); Red Cell Distribution Width 16 % (10.5-15); White Blood Count 8.2 10^3/ul (3.5-10.8)
[2018-01-21 03:54] LABS: INR 1.04 (0.77-1.02)
[2018-01-21 04:02] LABS: EGFR Non-African American 95.1 (>60)
[2018-01-21] MEDS ORDERED: Furosemide IV* 10 MG/ML VIAL (40 MG) IV ONE (04:24)
--- NOTE | 2018-01-21 06:53 | ED ---
Lior Huitron Nikita, scribed for Lito Guzman MD on 01/21/18 at 0329 . HPI Chest Pain - HPI Summary HPI Summary: This patient is a 62 year old F BIBA to ED with a chief complaint of chest tightness since this morning. The CC is described as discomfort from her stomach to her chest. The EMS gave her 4 baby ASA and fluids. They did not give nitro. The patient rates the pain 5/10 in severity. Symptoms aggravated by movement. Symptoms alleviated by nothing. Patient reports couldnt catch my breath, chronic constipation (takes laxatives), and her last BM was yesterday. Patient denies diarrhea. - History of Current Complaint Chief Complaint: EDChestPainROMI Time Seen by Provider: 01/21/18 03:06 Hx Obtained From: Patient Onset/Duration: Started Hours Ago, Still Present Timing: Constant, Lasting Hours Initial Severity: Moderate Current Severity: Moderate Pain Intensity: 5 Pain Scale Used: 0-10 Numeric Character: Tightness Aggravating Factor(s): Movement Alleviating Factor(s): Nothing Associated Signs and Symptoms: Positive: Other: - Patient reports couldnt catch my breath, chronic constipation (takes laxatives), last BM was yesterday. Patient denies diarrhea. - Additional Pertinent History Primary Care Physician: [id number] - Allergy/Home Medications Allergies/Adverse Reactions: Allergies Allergy/AdvReac Type Severity Reaction Status Date / Time No Known Allergies Allergy Unverified 02/25/17 19:10 Home Medications: Home Medications Metoprolol Tartrate TAB* [Lopressor TAB*] 50 mg PO DAILY 01/21/18 [History Confirmed 01/21/18] PMH/Surg Hx/FS Hx/Imm Hx Endocrine/Hematology History: Reports: Hx Thyroid Disease - hyperthyroid, Hx Unexplained Bleeding, Other Endocrine/Hematological Disorders - thyroid issues Cardiovascular History: Reports: Hx Hypertension Respiratory History: Reports: Hx Chronic Obstructive Pulmonary Disease (COPD), Other Respiratory Problems/Disorders - O2 at 2L GI History: Reports: Hx Gastrointestinal Bleed - colonoscopy Musculoskeletal History: Reports: Hx Back Problems - recent Sensory History: Reports: Hx Contacts or Glasses - reading Denies: Hx Hearing Aid Opthamlomology History: Reports: Hx Contacts or Glasses - reading - Surgical History Surgery Procedure, Year, and Place: appendectomy - Immunization History Immunizations Up to Date: Yes Infectious Disease History: No Infectious Disease History: Denies: Traveled Outside the [place] in Last 30 Days - Family History Known Family History: Positive: Cardiac Disease, Hypertension, Diabetes - Social History Alcohol Use: None Hx Substance Use: No Substance Use Type: Reports: None Hx Tobacco Use: Yes Smoking Status (MU): Former Smoker Review of Systems Positive: Shortness Of Breath - "couldn't catch my breath" Positive: Other - chronic constipation (takes laxatives), last BM was yesterday. Negative: Diarrhea All Other Systems Reviewed And Are Negative: Yes Physical Exam - Summary Physical Exam Summary: VITAL SIGNS: Reviewed. GENERAL: ~Patient is a morbidly obese FEMALE who is lying comfortable in the stretcher. Patient is not in any acute respiratory distress. HEAD AND FACE: No signs of trauma. No ecchymosis, hematomas or skull depressions. No sinus tenderness. EYES: PERRLA, EOMI x 2, No injected conjunctiva, no nystagmus. EARS: Hearing grossly intact. Ear canals and tympanic membranes are within normal limits. MOUTH: Oropharynx within normal limits. NECK: Supple, trachea is midline, no adenopathy, no JVD, no carotid bruit, no c- spine tenderness, neck with full ROM. CHEST: Symmetric, no tenderness at palpation LUNGS: Decreased breath sounds bilaterally. CVS: Regular rate and rhythm, S1 and S2 present, no murmurs or gallops appreciated. ABDOMEN: Soft, non-tender. No signs of distention. No rebound, no guarding, and no masses palpated. Bowel sounds are normal. EXTREMITIES: FROM in all major joints, no edema, no cyanosis or clubbing. NEURO: Alert and oriented x 3. No acute neurological deficits. Speech is normal and follows commands. SKIN: Dry and warm Triage Information Reviewed: Yes Vital Signs On Initial Exam: Initial Vitals Pulse Pulse Ox 107 95 01/21/18 03:08 01/21/18 03:08 Vital Signs Reviewed: Yes Diagnostics - Vital Signs Vital Signs Temp Pulse Resp BP Pulse Ox 01/21/18 03:15 97.7 F 108 20 155/105 95 01/21/18 03:09 104 155/105 96 01/21/18 03:08 107 95 - Laboratory Lab Results: Lab Results 01/21/18 01/21/18 01/21/18 Range/Units 03:39 03:39 03:39 WBC 8.2 (3.5-10.8) 10^3/ul RBC 4.26 (4.0-5.4) 10^6/ul Hgb 9.7 L (12.0-16.0) g/dl Hct 31 L (35-47) % MCV 73 L (80-97) fL MCH 23 L (27-31) pg MCHC 31 (31-36) g/dl RDW 16 H (10.5-15) % Plt Count 274 (150-450) 10^3/ul MPV 8.8 (7.4-10.4) um3 Neut % (Auto) 73.6 (38-83) % Lymph % (Auto) 11.8 L (25-47) % Leake % (Auto) 11.0 H (0-7) % Eos % (Auto) 2.4 (0-6) % Baso % (Auto) 1.2 (0-2) % Absolute Neuts (auto) 6.1 (1.5-7.7) 10^3/ul Absolute Lymphs (auto) 1.0 (1.0-4.8) 10^3/ul Absolute Monos (auto) 0.9 H (0-0.8) 10^3/ul Absolute Eos (auto) 0.2 (0-0.6) 10^3/ul Absolute Basos (auto) 0.1 (0-0.2) 10^3/ul Absolute Nucleated RBC 0 10^3/ul Nucleated RBC % 0 INR (Anticoag Therapy) (0.77-1.02) APTT (26.0-36.3) seconds D-Dimer, Quantitative (Less Than 230) ng/mL Sodium 138 L (139-145) mmol/L Potassium 4.2 (3.5-5.0) mmol/L Chloride 99 L (101-111) mmol/L Carbon Dioxide 33 H (22-32) mmol/L Anion Gap 6 (2-11) mmol/L BUN 10 (6-24) mg/dL Creatinine 0.63 (0.51-0.95) mg/dL Est GFR ( Amer) 122.4 (>60) Est GFR (Non-Af Amer) 95.1 (>60) BUN/Creatinine Ratio 15.9 (8-20) Glucose 119 H (70-100) mg/dL Lactic Acid (0.5-2.0) mmol/L Calcium 9.3 (8.6-10.3) mg/dL Magnesium 2.0 (1.9-2.7) mg/dL Total Bilirubin 0.30 (0.2-1.0) mg/dL AST 14 (13-39) U/L ALT 12 (7-52) U/L Alkaline Phosphatase 72 (34-104) U/L Troponin I 0.01 (<0.04) ng/mL B-Natriuretic Peptide 251 H ( - 100) pg/mL Total Protein 6.9 (6.4-8.9) g/dL Albumin 3.9 (3.2-5.2) g/dL Globulin 3.0 (2-4) g/dL Albumin/Globulin Ratio 1.3 (1-3) 01/21/18 01/21/18 Range/Units 03:40 03:40 WBC (3.5-10.8) 10^3/ul RBC (4.0-5.4) 10^6/ul Hgb (12.0-16.0) g/dl Hct (35-47) % MCV (80-97) fL MCH (27-31) pg MCHC (31-36) g/dl RDW (10.5-15) % Plt Count (150-450) 10^3/ul MPV (7.4-10.4) um3 Neut % (Auto) (38-83) % Lymph % (Auto) (25-47) % [place] % (Auto) (0-7) % Eos % (Auto) (0-6) % Baso % (Auto) (0-2) % Absolute Neuts (auto) (1.5-7.7) 10^3/ul Absolute Lymphs (auto) (1.0-4.8) 10^3/ul Absolute Monos (auto) (0-0.8) 10^3/ul Absolute Eos (auto) (0-0.6) 10^3/ul Absolute Basos (auto) (0-0.2) 10^3/ul Absolute Nucleated RBC 10^3/ul Nucleated RBC % INR (Anticoag Therapy) 1.04 H (0.77-1.02) APTT 32.2 (26.0-36.3) seconds D-Dimer, Quantitative < 200 (Less Than 230) ng/mL Sodium (139-145) mmol/L Potassium (3.5-5.0) mmol/L Chloride (101-111) mmol/L Carbon Dioxide (22-32) mmol/L Anion Gap (2-11) mmol/L BUN (6-24) mg/dL Creatinine (0.51-0.95) mg/dL Est GFR ( Amer) (>60) Est GFR (Non-Af Amer) (>60) BUN/Creatinine Ratio (8-20) Glucose (70-100) mg/dL Lactic Acid 0.8 (0.5-2.0) mmol/L Calcium (8.6-10.3) mg/dL Magnesium (1.9-2.7) mg/dL Total Bilirubin (0.2-1.0) mg/dL AST (13-39) U/L ALT (7-52) U/L Alkaline Phosphatase (34-104) U/L Troponin I (<0.04) ng/mL B-Natriuretic Peptide ( - 100) pg/mL Total Protein (6.4-8.9) g/dL Albumin (3.2-5.2) g/dL Globulin (2-4) g/dL Albumin/Globulin Ratio (1-3) Result Diagrams: 01/21/18 03:39 01/21/18 03:39 Lab Statement: Any lab studies that have been ordered have been reviewed, and results considered in the medical decision making process. - Radiology CXR Radiology Interpretation Completed By: ED Physician - CXR reveals mild bilateral pulmonary congestion, Radiologist - Pending official report. - EKG 0349 Cardiac Rate: Tachycardia EKG Rhythm: Sinus Tachycardia - 103 bpm. Normal axis. Normal interval. No ischemic changes. Chest Pain Course/Dx - Course Assessment/Plan: This patient is a 62 year old F BIBA to ED with a chief complaint of chest tightness since this morning. CXR is negative. EKG reveals sinus tachycardia at 103 bpm, Normal axis, Normal interval, and No ischemic changes. In the ED course, the patient was given protonix. This patient will be signed out to Dr. Lopez, pending disposition, awaiting repeat trop and re- evaluation. - Diagnoses Provider Diagnoses: Chest pain Discharge - Sign-Out/Discharge Documenting (check all that apply): Sign-Out Patient - This patient will be signed out to Dr. Lopez, pending disposition, awaiting repeat trop and re- evaluation. Signing out patient TO: Heron Lopez - Discharge Plan Referrals: Non Staff,Doctor [Primary Care Provider] - The documentation as recorded by the Lior juan Nikita accurately reflects the service I personally performed and the decisions made by me, Lito Guzman MD.
--- NOTE | 2018-01-21 08:27 | RAD ---
INDICATION: Chest pain. COMPARISON: Comparison is made with a prior chest x-ray study from March 02, 2017. TECHNIQUE: A portable view of the chest was obtained. FINDINGS: The heart is moderately enlarged and unchanged from the prior exam. The lungs are hyperinflated and clear. No pleural effusion is seen. IMPRESSION: 1. CARDIOMEGALY, UNCHANGED. 2. FINDINGS CONSISTENT WITH COPD, NO EVIDENCE FOR ACUTE FINDING.
[2018-01-21] MEDS ORDERED: Al Hydrox/Mg Hydrox/Simet LIQ* 30 ML UDC PO PRN (08:53)
[2018-01-21] MEDS ORDERED: Acetaminophen TAB* 325 MG PO PRN (08:53)
[2018-01-21] MEDS ORDERED: Temazepam CAP* 15 MG PO PRN (08:53)
[2018-01-21] MEDS ORDERED: Furosemide TAB* 40 MG PO SCH (09:00)
[2018-01-21] MEDS ORDERED: Metoprolol Tartrate TAB* 50 mg PO SCH (09:00)
--- NOTE | 2018-01-21 10:18 | ED ---
Progress - Progress Note Progress Note: Ms. Pickett was seen during the night for chest pain without any ECG changes and an initial troponin of 0.01. She was awaiting a second troponin, pain-free when I arrived in the AM. Her 2nd trop came back at 0.06 and I contacted the hospitalist for admission and Dr. Wellington is seeing her now. She is still pain free. Course/Dx - Diagnoses Provider Diagnoses: Chest pain Discharge - Sign-Out/Discharge Documenting (check all that apply): Discharge/Admit/Transfer - Discharge Plan Condition: Stable Disposition: ADMITTED TO [facility] Referrals: Non Staff,Doctor [Primary Care Provider] - - Billing Disposition and Condition Condition: STABLE [place] [facility] [place]
[2018-01-21] MEDS ORDERED: Metoprolol Tartrate TAB* 50 mg ONE (10:20)
[2018-01-21] MEDS ORDERED: Furosemide TAB* 40 MG ONE (10:20)
[2018-01-21] MEDS: Docusate CAP* 100 MG PO SCH ×2 (11:41→22:17)
[2018-01-21] MEDS: Heparin VIAL(*) 5000 UNITS/ML VIAL (FIVE THOUSAND) SUBCUT SCH ×2 (13:29→22:15)
--- NOTE | 2018-01-21 13:36 | HP ---
CC: Dr. Hernandez. HISTORY AND PHYSICAL: DATE OF ADMISSION: 01/21/18. PRIMARY CARE PROVIDER: Dr. Hernandez. CHIEF COMPLAINT: Chest pain and shortness of breath. HISTORY OF PRESENT ILLNESS: Sara Pickett is a 62-year-old female with a history of diastolic CHF, for which she had been on Lasix, who presented to the hospital complaining of shortness of breath and nich[address] pain. The patient stated that when she described the chest pain that is actually "pressure and pu lling and shortness of breath." When I asked if it is actually a significant pain, she said there wa s no pain per se, but it is more of "pulling and shortness of breath." She stated that she has been having issues with that for the past 2 weeks, is more with exertion. It appears that positioning go s not make a difference. Currently, her symptoms are alleviated. She received 40 mg of IV Lasix in the emergency department. She has gained approximately 15 pounds in the past 1 year. She had been m anaging her medications herself. She discontinued diltiazem approximately 6 months ago and takes met oprolol, instead of twice a day, once a day, stating that she does not want to take "too much medicat ion." Diltiazem apparently caused her to be "dizzy." Her troponin is mildly elevated at 0.06. She appears in congestive heart failure. She is going to be admitted with diagnosis of chest pain and congestive heart failure to telemetry monitoring floor. PAST MEDICAL HISTORY: 1. Hypertension. 2. History of hyperthyroidism, on no medications. 3. History of tachycardia. 4. COPD, oxygen dependent on 2 L. 5. History of appendectomy. 6. History of GI bleed noted in 2016 at [facility] and in 2017 at our facility, which we re thought to be due to diverticular bleed. At that point after prolonged hospital stay, she decided to request to be discharged despite continuation of bleeding. 7. History of an episode of atrial fibrillation during her hospital stay in 2017 at our facility. I t appeared that due to her ongoing GI bleed at that point, no anticoagulation was started. She appar ently had not been on anticoagulation ever since, but she had been on diltiazem that she stopped 6 mo nths ago. CURRENT MEDICATIONS: Include: 1. Metoprolol tartrate 50 mg. The patient takes it on once a day, but she was directed to take twic e a day. 2. Lasix 40 mg daily. ALLERGIES: No known drug allergies. FAMILY HISTORY: Positive for both parents with heart disease late in life, both in their 80s. SOCIAL HISTORY: The patient has a history of [id number] smoking, she quit in 2013. She denies any alcohol or drug use. She lives alone and her daughter, Rain, is her surrogate, phone number is [phone]. The patient is on 2 L of oxygen at home continuously. She ambulates without any suppo rt at baseline. REVIEW OF SYSTEMS: Please see history of present illness. Positive for increasing abdominal girth a nd approximately a 20-pound weight loss in the past several months. Positive for increasing shortnes s of breath with exertion. Positive for chest pain, which she describes more like pushing and omer g, and short of breath related issues, and not like an ache. The patient denies worsening leg edema, but she has chronic leg edema. She has not had any recent medication changes. All the remaining 12 systems were reviewed with the patient and were otherwise negative. PHYSICAL EXAMINATION GENERAL: The patient is a very pleasant 62-year-old obese female, who is in no acute distress. Elizabeth rt, awake, and oriented x3. VITAL SIGNS: Blood pressure of 132/83, heart rate of 111 and regular, respiratory rate 25, oxygen sa turation 92% on 2 L of oxygen nasal cannula, temperature 98.3. HEENT: Head atraumatic, normocephalic. Eyes: Pupils are equal, reactive to light and accommodation . Oropharynx clear. Mucosa moist. NECK: Supple. Positive for JVD. No adenopathy bilaterally. RESPIRATORY: Distant breath sounds bilaterally with bibasilar crackles. CARDIOVASCULAR: Regular rate and rhythm. No murmur. Tachycardia. ABDOMEN: Very obese, protuberant, soft, nontender. Bowel sounds present in all 4 quadrants. EXTREMITIES: There is trace bilateral ankle edema. Pulses are +2 bilaterally. There is no clubbing or cyanosis. NEURO EVALUATION: Speech clear. Cranial nerves II through XII are grossly intact. Motor strength is 5/5 bilaterally. SKIN: Evaluation of the skin, no ecchymotic areas or rashes noted. DIAGNOSTIC STUDIES/LAB DATA: White blood cell count of 8.2, hemoglobin of 9.7, hematocrit of 31, an d platelets of 274. She is microcytic with an MCV of 73. Sodium was 138, potassium of 4.2, chloride 99, carbon dioxide 33, BUN 10, creatinine 0.63. Liver fun ction tests were unremarkable. Brain-natriuretic peptide was 251. Her initial troponin was 0.01, se cond troponin was 0.06. D-dimer was below 200. INR 1.04. The patient's portable chest x-ray was read by the radiologist as "cardiomegaly unchanged. Findings consistent with COPD. No evidence of acute findings." The patient's EKG shows sinus tachycardia with frequent PVCs. Heart rate of 99 beats per minute. Mu ltiple criteria for LVH. It was grossly unchanged from EKGs noted in our system from 2017. The PVCs are new. ASSESSMENT AND PLAN: 1. It appears to me that her chest pain is likely related to congestive heart failure. She has gain ed significant amount of fluid weight. She is tachycardic with increased abdominal girth. She recei preeti 40 mg of IV Lasix in the emergency department and she is going to be continued on 40 mg of IV Las ix b.i.d. I am also going to obtain an echocardiogram in the morning. 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 The juventino ent also has a history of possibility of hyperthyroidism, and I will obtain her TSH to be evaluate it further. 2. In regards to chest pain and elevated troponin, it is basically likely related to demand ischemia due to congestive heart failure, although the patient does have dyspnea on exertion, more so than wh en lying down. At this point, we will follow up with troponins, obtain transthoracic echocardiogram, and the patient is agreeable. She may need to undergo cardiac stress test depending on the course o f her current hospital stay. 3. Microcytic anemia. The patient has a history of heme-positive stools and gastrointestinal bleeds in 2017, for which she refused further evaluation. I will obtain stool guaiac, but once again, the patient is not interested in further invasive testing at this point. 4. For her chronic obstructive pulmonary disease. Patient does not appear to be in exacerbation. S he is not using inhalers at home, but she is on oxygen at 2 L continuously due to chronic hypoxemic r espiratory failure. Her oxygen is going to be continued. 5. For DVT prophylaxis, the patient is going to be placed on heparin subcutaneously. 6. The patient's code status is full. Her surrogate is her daughter as mentioned above. TIME SPENT: Approximately, 65 minutes was spent on admission of this patient, more than half that ti me was spent [id number] with the patient during the interview and physical exam. [id number]/[facility] #: [id number]
[2018-01-21] MEDS: Furosemide IV* 10 MG/ML 10 ML VIAL (100 MG) IV SCH (17:01)
[2018-01-21] MEDS ORDERED: Ondansetron ODT TAB* 4 MG SL PRN (20:55)
[2018-01-21] MEDS ORDERED: HYDROcodone/ACETAMIN 5-325 MG* 1 TAB PO ONE (21:22)
[2018-01-21] MEDS: Metoprolol Tartrate TAB* 50 mg PO SCH (22:17)
[2018-01-21] MEDS: CMCS:Melatonin (NF) 3 MG TAB PO SCH (22:17)
[2018-01-22] MEDS: Heparin VIAL(*) 5000 UNITS/ML VIAL (FIVE THOUSAND) SUBCUT SCH ×3 (05:07→20:43)
[2018-01-22 07:14] LABS: ABS Basophils 0.1 10^3/ul (0-0.2); ABS Eosinophils 0.3 10^3/ul (0-0.6); ABS Lymphocytes 1.4 10^3/ul (1.0-4.8); ABS Monocytes 0.9 10^3/ul (0-0.8); ABS Neutrophils 4.6 10^3/ul (1.5-7.7); ABS Nucleated RBC 0 10^3/ul; Eosinophil % 3.7 % (0-6); Hematocrit 29 % (35-47); Lymphocyte % 19.4 % (25-47); Mean Corpuscular HGB Conc 31 g/dl (31-36); Mean Corpuscular Hemoglobin 23 pg (27-31); Mean Corpuscular Volume 73 fL (80-97); Mean Platelet Volume 8.8 um3 (7.4-10.4); Nucleated Red Blood Cells % 0.1; Platelet Count 262 10^3/ul (150-450); Red Blood Count 3.92 10^6/ul (4.0-5.4); Red Cell Distribution Width 16 % (10.5-15); White Blood Count 7.2 10^3/ul (3.5-10.8)
[2018-01-22 07:30] LABS: EGFR Non-African American 82.9 (>60)
[2018-01-22] MEDS: Furosemide IV* 10 MG/ML 10 ML VIAL (100 MG) IV SCH ×2 (08:38→16:11)
[2018-01-22] MEDS: Docusate CAP* 100 MG PO SCH ×2 (08:38→20:49)
[2018-01-22] MEDS: Metoprolol Tartrate TAB* 50 mg PO SCH ×2 (08:38→20:49)
--- NOTE | 2018-01-22 09:09 | PN ---
Subjective Date of Service: 01/22/18 Interval History: Pt denies SOB or CP, feels much better. Has h/o intermittent blood in stool in the past, but not interested in further procedures Telem shows short bursts of narrow complex regular tachy in 150's -appears to be SVT, pt asymptomatic when it happens Objective Active Medications: Acetaminophen (Tylenol Tab*) 650 mg PO Q4H PRN PRN Reason: FEVER/PAIN Al Hydrox/Mg Hydrox/Simethicone (Maalox Plus*) 30 ml PO Q6H PRN PRN Reason: INDIGESTION Albuterol/Ipratropium (Duoneb (Albuterol 2.5 Mg/Ipratropium 0.5 Mg)) 1 neb INH [id number] AWAKE PRN PRN Reason: sob/wheexing Docusate Sodium (Colace Cap*) 100 mg PO BID [facility] Last Admin: 01/22/18 08:38 Dose: 100 mg Furosemide (Lasix Iv*) 40 mg IV 0800,1700 [facility] Last Admin: 01/22/18 08:38 Dose: 40 mg Heparin Sodium (Porcine) (Heparin Vial(*)) 5,000 units SUBCUT Q8HR [facility] Last Admin: 01/22/18 05:07 Dose: Not Given Melatonin (Melatonin (Nf)) 3 mg PO BEDTIME [facility] Last Admin: 01/21/18 22:17 Dose: 3 mg Metoprolol Tartrate (Lopressor Tab*) 50 mg PO BID [facility] Last Admin: 01/22/18 08:38 Dose: 50 mg Ondansetron HCl (Zofran Odt Tab*) 4 mg SL Q6H PRN PRN Reason: NAUSEA/VOMITING Temazepam (Restoril Cap*) 15 mg PO BEDTIME PRN PRN Reason: INSOMNIA Vital Signs - 8 hr 01/22/18 03:36 Temperature 98.5 F Pulse Rate 85 Respiratory 20 Rate Blood Pressure 114/52 (mmHg) O2 Sat by Pulse 94 Oximetry Oxygen Devices in Use Now: Nasal Cannula Appearance: 62 yo f in NAD, AAOx3 Eyes: No Scleral Icterus, PERRLA Ears/Nose/Mouth/Throat: NL Teeth, Lips, Gums, Mucous Membranes Moist Neck: NL Appearance and Movements; NL JVP, Trachea Midline Respiratory: Symmetrical Chest Expansion and Respiratory Effort, - - distant breath sounds b/l Cardiovascular: NL Sounds; No Murmurs; No JVD Abdominal: NL Sounds; No Tenderness; No Distention, No Hepatosplenomegaly Lymphatic: No Cervical Adenopathy Extremities: No Clubbing, Cyanosis, - - trace pedal edema b/l Skin: No Nodules or Sclerosis Neurological: Alert and Oriented x 3, NL Muscle Strength and Tone Result Diagrams: 01/22/18 06:47 01/22/18 06:47 Additional Lab and Data: Lab Results 01/21/18 01/21/18 01/21/18 Range/Units 03:39 03:39 03:39 WBC 8.2 (3.5-10.8) 10^3/ul RBC 4.26 (4.0-5.4) 10^6/ul Hgb 9.7 L (12.0-16.0) g/dl Hct 31 L (35-47) % MCV 73 L (80-97) fL MCH 23 L (27-31) pg MCHC 31 (31-36) g/dl RDW 16 H (10.5-15) % Plt Count 274 (150-450) 10^3/ul MPV 8.8 (7.4-10.4) um3 Neut % (Auto) 73.6 (38-83) % Lymph % (Auto) 11.8 L (25-47) % Stephens % (Auto) 11.0 H (0-7) % Eos % (Auto) 2.4 (0-6) % Baso % (Auto) 1.2 (0-2) % Absolute Neuts (auto) 6.1 (1.5-7.7) 10^3/ul Absolute Lymphs (auto) 1.0 (1.0-4.8) 10^3/ul Absolute Monos (auto) 0.9 H (0-0.8) 10^3/ul Absolute Eos (auto) 0.2 (0-0.6) 10^3/ul Absolute Basos (auto) 0.1 (0-0.2) 10^3/ul Absolute Nucleated RBC 0 10^3/ul Nucleated RBC % 0 INR (Anticoag Therapy) (0.77-1.02) APTT (26.0-36.3) seconds D-Dimer, Quantitative (Less Than 230) ng/mL Sodium 138 L (139-145) mmol/L Potassium 4.2 (3.5-5.0) mmol/L Chloride 99 L (101-111) mmol/L Carbon Dioxide 33 H (22-32) mmol/L Anion Gap 6 (2-11) mmol/L BUN 10 (6-24) mg/dL Creatinine 0.63 (0.51-0.95) mg/dL Est GFR ( Amer) 122.4 (>60) Est GFR (Non-Af Amer) 95.1 (>60) BUN/Creatinine Ratio 15.9 (8-20) Glucose 119 H (70-100) mg/dL Lactic Acid (0.5-2.0) mmol/L Calcium 9.3 (8.6-10.3) mg/dL Magnesium 2.0 (1.9-2.7) mg/dL Total Bilirubin 0.30 (0.2-1.0) mg/dL AST 14 (13-39) U/L ALT 12 (7-52) U/L Alkaline Phosphatase 72 (34-104) U/L Troponin I 0.01 (<0.04) ng/mL B-Natriuretic Peptide 251 H ( - 100) pg/mL Total Protein 6.9 (6.4-8.9) g/dL Albumin 3.9 (3.2-5.2) g/dL Globulin 3.0 (2-4) g/dL Albumin/Globulin Ratio 1.3 (1-3) 01/21/18 01/21/18 Range/Units 03:40 03:40 WBC (3.5-10.8) 10^3/ul RBC (4.0-5.4) 10^6/ul Hgb (12.0-16.0) g/dl Hct (35-47) % MCV (80-97) fL MCH (27-31) pg MCHC (31-36) g/dl RDW (10.5-15) % Plt Count (150-450) 10^3/ul MPV (7.4-10.4) um3 Neut % (Auto) (38-83) % Lymph % (Auto) (25-47) % Stephens % (Auto) (0-7) % Eos % (Auto) (0-6) % Baso % (Auto) (0-2) % Absolute Neuts (auto) (1.5-7.7) 10^3/ul Absolute Lymphs (auto) (1.0-4.8) 10^3/ul Absolute Monos (auto) (0-0.8) 10^3/ul Absolute Eos (auto) (0-0.6) 10^3/ul Absolute Basos (auto) (0-0.2) 10^3/ul Absolute Nucleated RBC 10^3/ul Nucleated RBC % INR (Anticoag Therapy) 1.04 H (0.77-1.02) APTT 32.2 (26.0-36.3) seconds D-Dimer, Quantitative < 200 (Less Than 230) ng/mL Sodium (139-145) mmol/L Potassium (3.5-5.0) mmol/L Chloride (101-111) mmol/L Carbon Dioxide (22-32) mmol/L Anion Gap (2-11) mmol/L BUN (6-24) mg/dL Creatinine (0.51-0.95) mg/dL Est GFR ( Amer) (>60) Est GFR (Non-Af Amer) (>60) BUN/Creatinine Ratio (8-20) Glucose (70-100) mg/dL Lactic Acid 0.8 (0.5-2.0) mmol/L Calcium (8.6-10.3) mg/dL Magnesium (1.9-2.7) mg/dL Total Bilirubin (0.2-1.0) mg/dL AST (13-39) U/L ALT (7-52) U/L Alkaline Phosphatase (34-104) U/L Troponin I (<0.04) ng/mL B-Natriuretic Peptide ( - 100) pg/mL Total Protein (6.4-8.9) g/dL Albumin (3.2-5.2) g/dL Globulin (2-4) g/dL Albumin/Globulin Ratio (1-3) Assess/Plan/Problems-Billing Assessment: 62 yo F with h/o diastolic CHF, COPD 02 dependent, GI bleed in 2017( presumed diverticular-pt refused further investigation) who presents c/o SOB and CP - Patient Problems (1) Acute diastolic (congestive) heart failure Comment: suspect most symptoms are related to CHF SOB is resolving. Cont Lasix and daily weights. (2) Chest pain Comment: appears to be assiciated m,ore to the disomfort of AUGUST and not clear cut pain per se. Troponin at 0.06 max will get a pharmacologic stress test in AM Pt refuses to walk the treadmill due to obesity and COPD (3) HTN (hypertension) Comment: BP is under fair control. Continue current medication regimen. (4) Tachycardia Comment: pt has h/o sinus tachy in the past. Has had episodes of SVT on telem. H/o a.fib in 2017. Today not a caondidate for anticoagulation due to ongoing chronic GI bleed for which she refused intervention TSH 0.4 (5) COPD (chronic obstructive pulmonary disease) Comment: Stable. With chronic hypoxemic respiratory failure. cont 02 at 2l (6) Microcytic anemia Comment: stable, suspect Hb is chronically low due to h/o GI bleed stool guaiac pending (7) DVT prophylaxis Comment: HSQ Status and Disposition: OBV will be changed to inpatient, pt needs to stay for stress test in aM
[2018-01-22] MEDS ORDERED: methylPREDNISolone SOD 40 MG* 1 ML VIAL IV ONE (13:00)
[2018-01-22] MEDS ORDERED: methylPREDNISolone SOD 40 MG* 1 ML VIAL ONE (13:02)
[2018-01-22] MEDS: Albuterol/Ipratropium NEB.SOL* Albuterol 2.5 MG/Ipratropium 0.5 MG 3 ML INH PRN (13:26)
[2018-01-22] MEDS: HYDROcodone/ACETAMIN 5-325 MG* 1 TAB PO PRN ×2 (16:32→23:11)
--- NOTE | 2018-01-22 17:31 | ECHO ---
Patient: DUANE BERGER [facility] Rec#: [id number] : 1955 Date: 01/22/2018 Age: 62y Height: 162.6 cm / 64.0 in Weight: 136.1 kg / 300.0 lbs Sex: F BSA: 2.3 Room#: [facility] Admit Date#: 01/21/2018 Type: Inpatient Referring: Joan Wellington MD [place]: Justin Phillips DO Jewelry Dipper: Gisel Manzano RN RDCS CC: Trey Hernandez DO Transthoracic Echocardiogram Indication: CHF BP: 114/52 HR: 97 Rhythm: NSR with PVCs Findings History: HTN, cardiomegaly, COPD, thyroid disease, morbid obesity, former smoker Technical Comments: The study quality is fair. The study is technically limited due to poor parasternal windows. The study is technically limited due to patient body habitus. The study is technically limited due to the patient's smoking history. Left Ventricle: The left ventricular chamber size is normal. Moderate concentric left ventricular hypertrophy is observed. Global left ventricular wall motion and contractility are within normal limits. There is normal left ventricular systolic function. The estimated ejection fraction is greater than 65%. Abnormal left ventricular diastolic filling is observed, consistent with impaired relaxation. Left Atrium: The left atrium is mildly dilated. Right Ventricle: The right ventricular chamber size and systolic function are within normal limits. Right Atrium: The right atrial cavity size is normal. Aortic Valve: The aortic valve leaflets are mildly thickened. Systolic excursion of the aortic valve cusps is reduced. There is trace to mild aortic regurgitation. There is mild aortic stenosis. The mean gradient of the aortic valve is 15.1 mmHg. The peak instantaneous gradient of the aortic valve is 26.4 mmHg. The aortic valve area, by VTI's, is calculated at 1.9 cm2. The highest aortic valve velocity was obtained with the standard probe from the A5C view. Mitral Valve: Moderate mitral annular calcification present. The mitral valve leaflets are mildly thickened. There is trace to mild mitral regurgitation. There is mild mitral stenosis. The mean gradient across the mitral valve is 4.4 mmHg. Tricuspid Valve: The tricuspid valve structure is not well visualized. There is mild tricuspid regurgitation. No pulmonary hypertension is noted. There is no tricuspid stenosis. Pulmonic Valve: The pulmonic valve structure is not well visualized. Pericardium: There is no significant pericardial effusion. Aorta: The ascending aorta is not well visualized. There is no dilation of the aortic root. Pulmonary Artery: The main pulmonary artery is not well visualized. Venous: The venous system is not well visualized. The inferior vena cava is not visualized. Conclusions The left ventricular chamber size is normal. Moderate concentric left ventricular hypertrophy is observed. There is normal left ventricular systolic function. Global left ventricular wall motion and contractility are within normal limits. The estimated ejection fraction is 65-70% Mild LA dilation The right ventricular chamber size and systolic function are within normal limits. Moderate mitral annular calcification present with mild non-rheumatic mitral stenosis. Mild aortic stenosis. Compared to prior study from 02/2017, no clinically significant changes noted. Measurements Name Value Normal Range RVDdMajor (2D) 4.1 cm (2.2 - 4.4) RVAW (2D) 0.6 cm (0.2 - 0.5) RAd ISD 4CH 4.5 cm (3.4 - 4.9) RA (A4C)W 4.6 cm (2.9 - 4.6) IVSd (2D) 1.6 cm (0.6 - 1) LVPWd (2D) 1.4 cm (0.6 - 1) LVIDd (2D) 4.4 cm (3.6 - 5.4) LVIDs (2D) 2.7 cm - LV FS (2D) 38 % (25 - 45) Aortic Annulus 2.4 cm (1.4 - 2.6) Ao root diameter (2D) 3.1 cm (2.1 - 3.5) Aortic arch 2.6 cm (1.8 - 3.4) LA dimension (AP) 2D 3.8 cm (2.3 - 3.8) LAd ISD 4CH 5 cm (2.9 - 5.3) LA ISD 4CH W 5.4 cm (2.5 - 4.5) Name Value Normal Range LA ESV SP 4CH (A/L) 72 ml - LA ESV SP 2CH (A/L) 80 ml - LA ESV BP (A/L) 81 ml - LA ESV BP (A/L) index 35 ml/m2 - LA ESV SP 4CH (MOD) 66 ml - LA ESV SP 2CH (MOD) 70 ml - Name Value Normal Range MV E-wave Vmax 0.96 m/sec - MV deceleration time 275 msec - MV A-wave Vmax 1.3 m/sec - MV E:A ratio 0.75 ratio - LV septal e' Vmax 0.05 m/sec - LV lateral e' Vmax 0.07 m/sec - LV E:e' septal ratio 19.2 ratio - LV E:e' lateral ratio 13.7 ratio - Name Value Normal Range AV Vmax 2.6 m/sec - AV VTI 53 cm - AV peak gradient 26.4 mmHg - AV mean gradient 15.1 mmHg - LVOT diameter 2 cm - LVOT Vmax 1.3 m/sec - LVOT VTI 31.3 cm - LVOT peak gradient 6.7 mmHg - LVOT mean gradient 3.9 mmHg - DOI (VTI) 0.59 ratio - DOI (Vmax) 0.5 ratio - SV LVOT 98.3 ml - CO LVOT 9.5 l/min - Cardiac index 4.1 l/min/m2 - MARI (continuity Vmax) 1.6 cm2 - MARI (continuity VTI) 1.9 cm2 - ELIEZER Vmax 0.49 m/sec - Name Value Normal Range MV Vmax 1.5 m/sec - MV VTI 31.1 cm - MV peak gradient 9 mmHg - MV mean gradient 4.4 mmHg - MV PHT 67 msec - MVA (PHT) 3.3 cm2 - MVA (continuity VTI) 3.2 cm2 - Name Value Normal Range TR Vmax 2.4 m/sec - TR peak gradient 23 mmHg - RAP 8 mmHg - RVSP 31 mmHg - Name Value Normal Range PV Vmax 0.92 m/sec -
[2018-01-22] MEDS ORDERED: Polyethylene Glycol 3350* 17 GM PACKET PO PRN (20:15)
[2018-01-22] MEDS ORDERED: Bisacodyl SUPP* 10 MG SUPP PR PRN (20:15)
[2018-01-22] MEDS: CMCS:Melatonin (NF) 3 MG TAB PO SCH (20:49)
[2018-01-23] MEDS: Heparin VIAL(*) 5000 UNITS/ML VIAL (FIVE THOUSAND) SUBCUT SCH ×4 (06:05→21:39)
[2018-01-23 06:19] LABS: ABS Basophils 0.1 10^3/ul (0-0.2); ABS Eosinophils 0.1 10^3/ul (0-0.6); ABS Lymphocytes 1.5 10^3/ul (1.0-4.8); ABS Monocytes 0.8 10^3/ul (0-0.8); ABS Neutrophils 7.3 10^3/ul (1.5-7.7); ABS Nucleated RBC 0 10^3/ul; Eosinophil % 0.6 % (0-6); Hematocrit 30 % (35-47); Hemoglobin 9.3 g/dl (12.0-16.0); Lymphocyte % 15.4 % (25-47); Mean Corpuscular HGB Conc 31 g/dl (31-36); Mean Corpuscular Hemoglobin 22 pg (27-31); Mean Corpuscular Volume 73 fL (80-97); Mean Platelet Volume 8.9 um3 (7.4-10.4); Nucleated Red Blood Cells % 0; Platelet Count 287 10^3/ul (150-450); Red Blood Count 4.14 10^6/ul (4.0-5.4); Red Cell Distribution Width 16 % (10.5-15); White Blood Count 9.7 10^3/ul (3.5-10.8)
[2018-01-23 06:33] LABS: EGFR Non-African American 76.6 (>60)
[2018-01-23] MEDS: HYDROcodone/ACETAMIN 5-325 MG* 1 TAB PO PRN ×2 (08:16→16:11)
[2018-01-23] MEDS: Docusate CAP* 100 MG PO SCH ×2 (08:17→21:38)
[2018-01-23] MEDS: Magnesium Hydroxide LIQ* 30 ML UDC PO PRN (08:17)
[2018-01-23] MEDS: Ferrous Sulfate TAB* 325 MG PO SCH (08:17)
[2018-01-23] MEDS: Furosemide IV* 10 MG/ML 10 ML VIAL (100 MG) IV SCH ×2 (08:18→16:11)
[2018-01-23] MEDS: Polyethylene Glycol 3350* 17 GM PACKET PO SCH (08:18)
[2018-01-23] MEDS ORDERED: Regadenoson* 0.4 MG/5 ML SYRINGE ONE (11:42)
[2018-01-23] MEDS ORDERED: Aminophylline IV* 25 MG/ML 10 ML VIAL ONE (11:42)
[2018-01-23] MEDS: Metoprolol Tartrate TAB* 50 mg PO SCH ×2 (13:23→21:38)
--- NOTE | 2018-01-23 16:57 | PN ---
Subjective Date of Service: 01/23/18 Interval History: Pt feels much better. Drunk chamomile tea she was allergic to yesterday and was treated with a dose of Solu Medrol. Then developed abd cramping that resolved after a laxative and a bowel movement. On telem frequent PAC's and sinus tachy. Objective Active Medications: Acetaminophen (Tylenol Tab*) 650 mg PO Q4H PRN PRN Reason: FEVER/PAIN Hydrocodone Bitart/Acetaminophen ([place] 5-325 Tab*) 1 tab PO Q6H PRN PRN Reason: PAIN Last Admin: 01/23/18 16:11 Dose: 1 tab Al Hydrox/Mg Hydrox/Simethicone (Maalox Plus*) 30 ml PO Q6H PRN PRN Reason: INDIGESTION Albuterol/Ipratropium (Duoneb (Albuterol 2.5 Mg/Ipratropium 0.5 Mg)) 1 neb INH [id number] AWAKE PRN PRN Reason: sob/wheexing Last Admin: 01/22/18 13:26 Dose: 1 neb Bisacodyl (Dulcolax Supp*) 10 mg [place] DAILY PRN PRN Reason: CONSTIPATION Last Admin: 01/22/18 20:47 Dose: 10 mg Docusate Sodium (Colace Cap*) 100 mg PO BID [facility] Last Admin: 01/23/18 08:17 Dose: 100 mg Ferrous Sulfate (Ferrous Sulfate Tab*) 325 mg PO DAILY [facility] Last Admin: 01/23/18 08:17 Dose: 325 mg Furosemide (Lasix Iv*) 40 mg IV 0800,1700 [facility] Last Admin: 01/23/18 16:11 Dose: 40 mg Heparin Sodium (Porcine) (Heparin Vial(*)) 5,000 units SUBCUT Q8HR [facility] Last Admin: 01/23/18 13:23 Dose: Not Given Magnesium Hydroxide (Milk Of Magnesia Liq*) 30 ml PO Q4H PRN PRN Reason: CONSTIPATION Last Admin: 01/23/18 08:17 Dose: 30 ml Melatonin (Melatonin (Nf)) 3 mg PO BEDTIME [facility] Last Admin: 01/22/18 20:49 Dose: 3 mg Metoprolol Tartrate (Lopressor Tab*) 75 mg PO BID [facility] Ondansetron HCl (Zofran Odt Tab*) 4 mg SL Q6H PRN PRN Reason: NAUSEA/VOMITING Polyethylene Glycol/Electrolytes (Miralax*) 17 gm PO DAILY [facility] Last Admin: 01/23/18 08:18 Dose: 17 gm Temazepam (Restoril Cap*) 15 mg PO BEDTIME PRN PRN Reason: INSOMNIA Vital Signs - 8 hr 01/23/18 01/23/18 01/23/18 10:21 13:02 13:25 Temperature 97.9 F Pulse Rate 86 Respiratory 19 24 18 Rate Blood Pressure 109/48 (mmHg) O2 Sat by Pulse 96 Oximetry 01/23/18 01/23/18 15:53 16:11 Temperature 97.6 F Pulse Rate 80 Respiratory 20 18 Rate Blood Pressure 136/72 (mmHg) O2 Sat by Pulse 100 Oximetry Oxygen Devices in Use Now: Nasal Cannula Appearance: 62 yo F in nAD, aAOx3 Eyes: No Scleral Icterus, PERRLA Ears/Nose/Mouth/Throat: NL Teeth, Lips, Gums, Mucous Membranes Moist Neck: NL Appearance and Movements; NL JVP, Trachea Midline Respiratory: Symmetrical Chest Expansion and Respiratory Effort, - - diatnt breath sounds b/l Cardiovascular: NL Sounds; No Murmurs; No JVD, RRR Abdominal: NL Sounds; No Tenderness; No Distention, No Hepatosplenomegaly Lymphatic: No Cervical Adenopathy Extremities: No Clubbing, Cyanosis, - - trace pedal edema b/l Skin: No Rash or Ulcers, No Nodules or Sclerosis Neurological: Alert and Oriented x 3, NL Muscle Strength and Tone Result Diagrams: 01/23/18 05:53 01/23/18 05:53 Additional Lab and Data: Lab Results 01/21/18 01/21/18 01/21/18 Range/Units 03:39 03:39 03:39 WBC 8.2 (3.5-10.8) 10^3/ul RBC 4.26 (4.0-5.4) 10^6/ul Hgb 9.7 L (12.0-16.0) g/dl Hct 31 L (35-47) % MCV 73 L (80-97) fL MCH 23 L (27-31) pg MCHC 31 (31-36) g/dl RDW 16 H (10.5-15) % Plt Count 274 (150-450) 10^3/ul MPV 8.8 (7.4-10.4) um3 Neut % (Auto) 73.6 (38-83) % Lymph % (Auto) 11.8 L (25-47) % [place] % (Auto) 11.0 H (0-7) % Eos % (Auto) 2.4 (0-6) % Baso % (Auto) 1.2 (0-2) % Absolute Neuts (auto) 6.1 (1.5-7.7) 10^3/ul Absolute Lymphs (auto) 1.0 (1.0-4.8) 10^3/ul Absolute Monos (auto) 0.9 H (0-0.8) 10^3/ul Absolute Eos (auto) 0.2 (0-0.6) 10^3/ul Absolute Basos (auto) 0.1 (0-0.2) 10^3/ul Absolute Nucleated RBC 0 10^3/ul Nucleated RBC % 0 INR (Anticoag Therapy) (0.77-1.02) APTT (26.0-36.3) seconds D-Dimer, Quantitative (Less Than 230) ng/mL Sodium 138 L (139-145) mmol/L Potassium 4.2 (3.5-5.0) mmol/L Chloride 99 L (101-111) mmol/L Carbon Dioxide 33 H (22-32) mmol/L Anion Gap 6 (2-11) mmol/L BUN 10 (6-24) mg/dL Creatinine 0.63 (0.51-0.95) mg/dL Est GFR ( Amer) 122.4 (>60) Est GFR (Non-Af Amer) 95.1 (>60) BUN/Creatinine Ratio 15.9 (8-20) Glucose 119 H (70-100) mg/dL Lactic Acid (0.5-2.0) mmol/L Calcium 9.3 (8.6-10.3) mg/dL Magnesium 2.0 (1.9-2.7) mg/dL Total Bilirubin 0.30 (0.2-1.0) mg/dL AST 14 (13-39) U/L ALT 12 (7-52) U/L Alkaline Phosphatase 72 (34-104) U/L Troponin I 0.01 (<0.04) ng/mL B-Natriuretic Peptide 251 H ( - 100) pg/mL Total Protein 6.9 (6.4-8.9) g/dL Albumin 3.9 (3.2-5.2) g/dL Globulin 3.0 (2-4) g/dL Albumin/Globulin Ratio 1.3 (1-3) 01/21/18 01/21/18 Range/Units 03:40 03:40 WBC (3.5-10.8) 10^3/ul RBC (4.0-5.4) 10^6/ul Hgb (12.0-16.0) g/dl Hct (35-47) % MCV (80-97) fL MCH (27-31) pg MCHC (31-36) g/dl RDW (10.5-15) % Plt Count (150-450) 10^3/ul MPV (7.4-10.4) um3 Neut % (Auto) (38-83) % Lymph % (Auto) (25-47) % [place] % (Auto) (0-7) % Eos % (Auto) (0-6) % Baso % (Auto) (0-2) % Absolute Neuts (auto) (1.5-7.7) 10^3/ul Absolute Lymphs (auto) (1.0-4.8) 10^3/ul Absolute Monos (auto) (0-0.8) 10^3/ul Absolute Eos (auto) (0-0.6) 10^3/ul Absolute Basos (auto) (0-0.2) 10^3/ul Absolute Nucleated RBC 10^3/ul Nucleated RBC % INR (Anticoag Therapy) 1.04 H (0.77-1.02) APTT 32.2 (26.0-36.3) seconds D-Dimer, Quantitative < 200 (Less Than 230) ng/mL Sodium (139-145) mmol/L Potassium (3.5-5.0) mmol/L Chloride (101-111) mmol/L Carbon Dioxide (22-32) mmol/L Anion Gap (2-11) mmol/L BUN (6-24) mg/dL Creatinine (0.51-0.95) mg/dL Est GFR ( Amer) (>60) Est GFR (Non-Af Amer) (>60) BUN/Creatinine Ratio (8-20) Glucose (70-100) mg/dL Lactic Acid 0.8 (0.5-2.0) mmol/L Calcium (8.6-10.3) mg/dL Magnesium (1.9-2.7) mg/dL Total Bilirubin (0.2-1.0) mg/dL AST (13-39) U/L ALT (7-52) U/L Alkaline Phosphatase (34-104) U/L Troponin I (<0.04) ng/mL B-Natriuretic Peptide ( - 100) pg/mL Total Protein (6.4-8.9) g/dL Albumin (3.2-5.2) g/dL Globulin (2-4) g/dL Albumin/Globulin Ratio (1-3) Assess/Plan/Problems-Billing Assessment: 62 yo F with h/o diastolic CHF, 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 Cont Lasix and daily weights. (2) Chest pain Comment: appears to be assiciated more to the disomfort of AUGUST and not clear cut pain per se. Troponin at 0.06 max Pharmacologic stress test -second part in aM. Pt refuses to walk the treadmill due to obesity and COPD (3) HTN (hypertension) Comment: BP is under fair control. Continue current medication regimen. (4) Tachycardia Comment: pt has h/o sinus tachy in the past. Has had episodes of SVT on telem. H/o a.fib in 2017. Today not a candidate for anticoagulation due to ongoing chronic GI bleed for which she refused intervention TSH 0.4 will increase lopressor from 50 to 75 mg BID (5) COPD (chronic obstructive pulmonary disease) Comment: Stable. With chronic hypoxemic respiratory failure. cont 02 at 2l (6) Microcytic anemia Comment: stable, suspect Hb is chronically low due to h/o GI bleed stool guaiac pending (7) DVT prophylaxis Comment: HSQ Status and Disposition: inpatient
[2018-01-23] MEDS: Albuterol/Ipratropium NEB.SOL* Albuterol 2.5 MG/Ipratropium 0.5 MG 3 ML INH PRN (19:34)
[2018-01-23] MEDS: CMCS:Melatonin (NF) 3 MG TAB PO SCH (21:38)
[2018-01-24] MEDS: HYDROcodone/ACETAMIN 5-325 MG* 1 TAB PO PRN ×3 (00:14→17:01)
[2018-01-24] MEDS: Heparin VIAL(*) 5000 UNITS/ML VIAL (FIVE THOUSAND) SUBCUT SCH ×2 (05:59→12:42)
[2018-01-24] MEDS: Docusate CAP* 100 MG PO SCH (08:04)
[2018-01-24] MEDS: Ferrous Sulfate TAB* 325 MG PO SCH (08:04)
[2018-01-24] MEDS: Furosemide IV* 10 MG/ML 10 ML VIAL (100 MG) IV SCH ×2 (08:05→17:01)
[2018-01-24] MEDS: Polyethylene Glycol 3350* 17 GM PACKET PO SCH (08:05)
[2018-01-24] MEDS: Magnesium Hydroxide LIQ* 30 ML UDC PO PRN (08:05)
[2018-01-24] MEDS: Metoprolol Tartrate TAB* 50 mg PO SCH (10:01)
--- NOTE | 2018-01-24 10:47 | RAD ---
Edited for charges. Indication: Chest pain. Myocardial perfusion scan was performed after 25.21 mCi of technetium 99 and tetrofosmin was injected after the pharmacological stress. Rest myocardial perfusion was performed after 25.6 mCi of technetium 99m tetrofosmin. There is photopenia in the anterior wall which appears to reverse on the rest images. This is consistent with anterior wall reversible change slightly extending into the lateral wall. The ejection fraction at stress is 49% and at rest is 60%. Evaluation of wall motion demonstrates no evidence of focal wall motion abnormality. IMPRESSION: Moderate amount of reversible change in the anterior lateral wall of the left ventricle. Ejection fraction at stress is 49% and at rest is 60% with no focal wall motion abnormality. ASSESSMENT: Intermediate risk Based on imaging criteria from ACC/AHA 2002 Guideline Update for the Management of Patients With Chronic Stable Angina Table 23. Noninvasive Risk Stratification. MTDD
--- NOTE | 2018-01-24 11:58 | PN ---
Subjective Date of Service: 01/24/18 Interval History: Pt was seen post stress test. feels well. Denies CP Objective Active Medications: Acetaminophen (Tylenol Tab*) 650 mg PO Q4H PRN PRN Reason: FEVER/PAIN Hydrocodone Bitart/Acetaminophen ([place] 5-325 Tab*) 1 tab PO Q6H PRN PRN Reason: PAIN Last Admin: 01/24/18 08:05 Dose: 1 tab Al Hydrox/Mg Hydrox/Simethicone (Maalox Plus*) 30 ml PO Q6H PRN PRN Reason: INDIGESTION Albuterol/Ipratropium (Duoneb (Albuterol 2.5 Mg/Ipratropium 0.5 Mg)) 1 neb INH [id number] AWAKE PRN PRN Reason: sob/wheexing Last Admin: 01/23/18 19:34 Dose: 1 neb Bisacodyl (Dulcolax Supp*) 10 mg [place] DAILY PRN PRN Reason: CONSTIPATION Last Admin: 01/22/18 20:47 Dose: 10 mg Docusate Sodium (Colace Cap*) 100 mg PO BID [facility] Last Admin: 01/24/18 08:04 Dose: 100 mg Ferrous Sulfate (Ferrous Sulfate Tab*) 325 mg PO DAILY [facility] Last Admin: 01/24/18 08:04 Dose: 325 mg Furosemide (Lasix Iv*) 40 mg IV 0800,1700 [facility] Last Admin: 01/24/18 08:05 Dose: 40 mg Heparin Sodium (Porcine) (Heparin Vial(*)) 5,000 units SUBCUT Q8HR [facility] Last Admin: 01/24/18 05:59 Dose: Not Given Magnesium Hydroxide (Milk Of Magnesia Liq*) 30 ml PO Q4H PRN PRN Reason: CONSTIPATION Last Admin: 01/24/18 08:05 Dose: 30 ml Melatonin (Melatonin (Nf)) 3 mg PO BEDTIME [facility] Last Admin: 01/23/18 21:38 Dose: 3 mg Metoprolol Tartrate (Lopressor Tab*) 75 mg PO BID [facility] Last Admin: 01/24/18 10:01 Dose: 75 mg Ondansetron HCl (Zofran Odt Tab*) 4 mg SL Q6H PRN PRN Reason: NAUSEA/VOMITING Polyethylene Glycol/Electrolytes (Miralax*) 17 gm PO DAILY [facility] Last Admin: 01/24/18 08:05 Dose: 17 gm Temazepam (Restoril Cap*) 15 mg PO BEDTIME PRN PRN Reason: INSOMNIA Vital Signs - 8 hr 01/24/18 01/24/18 01/24/18 04:01 04:15 07:46 Temperature 97.5 F 97.7 F Pulse Rate 90 90 Respiratory 16 18 22 Rate Blood Pressure 128/59 123/69 (mmHg) O2 Sat by Pulse 95 99 Oximetry 01/24/18 01/24/18 01/24/18 08:00 08:05 10:08 Temperature Pulse Rate Respiratory 18 18 18 Rate Blood Pressure (mmHg) O2 Sat by Pulse Oximetry Oxygen Devices in Use Now: Nasal Cannula Appearance: 62 yo F in nAD, aAOx3 Eyes: No Scleral Icterus, PERRLA Ears/Nose/Mouth/Throat: NL Teeth, Lips, Gums, Mucous Membranes Moist Neck: NL Appearance and Movements; NL JVP, Trachea Midline Respiratory: Symmetrical Chest Expansion and Respiratory Effort, Clear to Auscultation Cardiovascular: NL Sounds; No Murmurs; No JVD, RRR Abdominal: NL Sounds; No Tenderness; No Distention Lymphatic: No Cervical Adenopathy Extremities: No Clubbing, Cyanosis, - - trace pedal edema b/l Skin: No Rash or Ulcers, No Nodules or Sclerosis Neurological: Alert and Oriented x 3, NL Muscle Strength and Tone Result Diagrams: 01/23/18 05:53 01/23/18 05:53 Additional Lab and Data: Lab Results 01/21/18 01/21/18 01/21/18 Range/Units 03:39 03:39 03:39 WBC 8.2 (3.5-10.8) 10^3/ul RBC 4.26 (4.0-5.4) 10^6/ul Hgb 9.7 L (12.0-16.0) g/dl Hct 31 L (35-47) % MCV 73 L (80-97) fL MCH 23 L (27-31) pg MCHC 31 (31-36) g/dl RDW 16 H (10.5-15) % Plt Count 274 (150-450) 10^3/ul MPV 8.8 (7.4-10.4) um3 Neut % (Auto) 73.6 (38-83) % Lymph % (Auto) 11.8 L (25-47) % [place] % (Auto) 11.0 H (0-7) % Eos % (Auto) 2.4 (0-6) % Baso % (Auto) 1.2 (0-2) % Absolute Neuts (auto) 6.1 (1.5-7.7) 10^3/ul Absolute Lymphs (auto) 1.0 (1.0-4.8) 10^3/ul Absolute Monos (auto) 0.9 H (0-0.8) 10^3/ul Absolute Eos (auto) 0.2 (0-0.6) 10^3/ul Absolute Basos (auto) 0.1 (0-0.2) 10^3/ul Absolute Nucleated RBC 0 10^3/ul Nucleated RBC % 0 INR (Anticoag Therapy) (0.77-1.02) APTT (26.0-36.3) seconds D-Dimer, Quantitative (Less Than 230) ng/mL Sodium 138 L (139-145) mmol/L Potassium 4.2 (3.5-5.0) mmol/L Chloride 99 L (101-111) mmol/L Carbon Dioxide 33 H (22-32) mmol/L Anion Gap 6 (2-11) mmol/L BUN 10 (6-24) mg/dL Creatinine 0.63 (0.51-0.95) mg/dL Est GFR ( Amer) 122.4 (>60) Est GFR (Non-Af Amer) 95.1 (>60) BUN/Creatinine Ratio 15.9 (8-20) Glucose 119 H (70-100) mg/dL Lactic Acid (0.5-2.0) mmol/L Calcium 9.3 (8.6-10.3) mg/dL Magnesium 2.0 (1.9-2.7) mg/dL Total Bilirubin 0.30 (0.2-1.0) mg/dL AST 14 (13-39) U/L ALT 12 (7-52) U/L Alkaline Phosphatase 72 (34-104) U/L Troponin I 0.01 (<0.04) ng/mL B-Natriuretic Peptide 251 H ( - 100) pg/mL Total Protein 6.9 (6.4-8.9) g/dL Albumin 3.9 (3.2-5.2) g/dL Globulin 3.0 (2-4) g/dL Albumin/Globulin Ratio 1.3 (1-3) 01/21/18 01/21/18 Range/Units 03:40 03:40 WBC (3.5-10.8) 10^3/ul RBC (4.0-5.4) 10^6/ul Hgb (12.0-16.0) g/dl Hct (35-47) % MCV (80-97) fL MCH (27-31) pg MCHC (31-36) g/dl RDW (10.5-15) % Plt Count (150-450) 10^3/ul MPV (7.4-10.4) um3 Neut % (Auto) (38-83) % Lymph % (Auto) (25-47) % [place] % (Auto) (0-7) % Eos % (Auto) (0-6) % Baso % (Auto) (0-2) % Absolute Neuts (auto) (1.5-7.7) 10^3/ul Absolute Lymphs (auto) (1.0-4.8) 10^3/ul Absolute Monos (auto) (0-0.8) 10^3/ul Absolute Eos (auto) (0-0.6) 10^3/ul Absolute Basos (auto) (0-0.2) 10^3/ul Absolute Nucleated RBC 10^3/ul Nucleated RBC % INR (Anticoag Therapy) 1.04 H (0.77-1.02) APTT 32.2 (26.0-36.3) seconds D-Dimer, Quantitative < 200 (Less Than 230) ng/mL Sodium (139-145) mmol/L Potassium (3.5-5.0) mmol/L Chloride (101-111) mmol/L Carbon Dioxide (22-32) mmol/L Anion Gap (2-11) mmol/L BUN (6-24) mg/dL Creatinine (0.51-0.95) mg/dL Est GFR ( Amer) (>60) Est GFR (Non-Af Amer) (>60) BUN/Creatinine Ratio (8-20) Glucose (70-100) mg/dL Lactic Acid 0.8 (0.5-2.0) mmol/L Calcium (8.6-10.3) mg/dL Magnesium (1.9-2.7) mg/dL Total Bilirubin (0.2-1.0) mg/dL AST (13-39) U/L ALT (7-52) U/L Alkaline Phosphatase (34-104) U/L Troponin I (<0.04) ng/mL B-Natriuretic Peptide ( - 100) pg/mL Total Protein (6.4-8.9) g/dL Albumin (3.2-5.2) g/dL Globulin (2-4) g/dL Albumin/Globulin Ratio (1-3) Assess/Plan/Problems-Billing Assessment: 62 yo F with h/o diastolic CHF, 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 Cont Lasix and daily weights. (2) Chest pain Comment: appears to be assiciated more to the disomfort of AUGUST and not clear cut pain per se. Troponin at 0.06 max. stress test intermediate. will start ASA and ask DR. Roy to see. (3) HTN (hypertension) Comment: BP is under fair control. Continue current medication regimen. (4) Tachycardia Comment: pt has h/o sinus tachy in the past. Has had episodes of SVT on telem. H/o a.fib in 2017. Today not a candidate for anticoagulation due to ongoing chronic GI bleed for which she refused intervention TSH 0.4 cont increased lopressor at 75 mg BID (5) COPD (chronic obstructive pulmonary disease) Comment: Stable. With chronic hypoxemic respiratory failure. cont 02 at 2l (6) Microcytic anemia Comment: stable, suspect Hb is chronically low due to h/o GI bleed Pt stated seh has hemorrhoids, no bleeding reported recently (7) DVT prophylaxis Comment: HSQ Status and Disposition: inpatient
[2018-01-24] MEDS ORDERED: Aspirin 81 mg CHEW TAB* 81 MG TAB.CHEW PO SCH (13:00)
[2018-01-24 15:37] VITALS: BP 121/63
[2018-01-24] MEDS ORDERED: Atorvastatin* 20 MG TAB PO SCH (21:00)
--- NOTE | 2018-01-24 23:28 | CONS ---
[facility] * CARDIOLOGY CONSULTATION: DATE OF CONSULT: 01/24/18 INDICATION FOR CONSULTATION: Congestive heart failure, abnormal stress test. HISTORY OF PRESENT ILLNESS: The patient is a 62-year-old woman with a history of congestive heart failure, history of COPD, obesity, who came to the emergency room because of shortness of breath and chest discomfort. The patient is somewhat of a poor historian. She is unable to give exact timelines as to the onset of her discomfort. The patient just felt like she was bloated and had chest pain and ended up in the hospital. She denies any palpitations. She denies any lightheadedness or dizziness. In the hospital, the patient was in normal sinus rhythm. The patient's troponins levels were minimally elevated , started off at 0 and went to 0.06 and then down to 0.05. Her echocardiogram showed normal LV function with mild mitral stenosis and mild aortic stenosis, no other significant abnormalities. The patient underwent a chemical stress test, which showed a moderate area of ischemia to her anterior wall. The patient does not have any evidence of congestive heart failure since being in the hospital. PAST MEDICAL HISTORY: Consistent with hypertension, hyperthyroidism, tachycardia, COPD, GI bleed in 2017, history of atrial fibrillation in 2017. MEDICATIONS: Her outside medications were just: 1. Metoprolol tartrate. 2. Lasix. ALLERGIES: No known drug allergies. FAMILY HISTORY: Both parents of heart disease late in life, both were in their 80s. SOCIAL HISTORY: She is a previous smoker, quit in 2013. Rare alcohol use. PHYSICAL EXAM: Height is 5 feet 4 inches, weight 257 pounds. Temperature 98.4 , heart rate is 80, blood pressure 114/51, respiratory rate is 18, oxygen saturation 99% on 2 L. Sclerae anicteric. Oropharynx is pink without erythema. Carotids are 2+ without bruits. JVD is normal. Thyroid is normal. Cardiac Exam: S1, S2 with a very faint 1/6 systolic ejection murmur. No diastolic murmur. PMI is normal. Lungs have mildly decreased breath sounds. There are no rhonchi or wheezes. Abdomen is obese, soft, nontender, nondistended with normoactive bowel sounds. Extremities show 2+ edema. The patient is awake, alert, and oriented. DIAGNOSTIC STUDIES/LAB DATA: CBC within normal limits. Chemistries within normal limits. BUN 23, creatinine 0.7. AST and ALT are normal. TSH 0.43. Total cholesterol 151, LDL cholesterol of 95. IMPRESSION AND PLAN: This is a 62-year-old woman with a history of diastolic congestive heart failure, who was admitted to the hospital with congestive heart failure and chest pain. The patient ruled out for a myocardial infarction ; however, she did have a minimally elevated troponin level increase. The patient's stress test does show a moderate area of ischemia to the anterior wall. In general, I think the patient's congestive heart failure could be due to ischemic cardiomyopathy. The patient's echocardiogram shows normal LV function with no critical valvular disease. I did talk to the patient at length regarding her presentation. I think the patient would benefit from a cardiac catheterization; however, the patient is not interested in pursuing cardiac catheterization. Currently, the patient is on Lipitor 20 mg a day, Lasix 40 mg IV b.i.d., metoprolol tartrate 75 mg b.i.d. , aspirin 81 mg a day. For now, since the patient does not want to pursue cardiac catheterization, it is obvious that we will pursue maximal medical therapy. The patient has reasonable medical therapy; however, I would consider adding an SANTI inhibitor to the patient's medical regimen. I will be glad to see the patient in followup. The patient will follow up with Dr. Hernandez. [id number]/[facility] #: [id number] KRISTINE
--- NOTE | 2018-01-25 15:42 | DS ---
Cc: Dr. Trey Hernandez; Dr. Roy * DISCHARGE SUMMARY: DATE OF ADMISSION: 01/21/18 DATE OF DISCHARGE: 01/24/18 PRIMARY CARE PROVIDER: Dr. Trey Hernandez. DISCHARGE DIAGNOSES: 1. Shortness of breath due to acute diastolic congestive heart failure exacerbation on chronic diastolic congestive heart failure. 2. Chest pain, possible angina with intermediate probability cardiac stressors documented on 01/24/18. SECONDARY DIAGNOSES: 1. Obesity. 2. Hypertension. 3. Hyperthyroidism in the past. 4. History of tachycardia. 5. History of gastrointestinal bleed in 2016 and recurrence of gastrointestinal bleed in 2017. The patient at that point was discharged despite continuation of bleeding. During that admission, the patient also had a brief episode of atrial fibrillation with rapid ventricular response, resolved. 6. History of oxygen dependent chronic obstructive pulmonary disease at 2 L. 7. History of appendectomy. MEDICATIONS AT DISCHARGE: Include, 1. Aspirin 81 mg daily. 2. Lipitor 20 mg daily. 3. Colace 100 mg b.i.d., hold for diarrhea. 4. Ferrous sulfate 325 mg daily. 5. Lasix 60 mg daily. 6. [place] 5/325 mg 1 tablet every 4 hours p.r.n. The patient was given prescription for a total of 3 days' supply. 7. Lisinopril 2.5 mg daily. 8. Metoprolol tartrate 75 mg b.i.d. LABORATORY DATA: Studies performed during the hospital stay: On 01/23/18, white blood cell count was 9.7, hemoglobin of 9.3, hematocrit of 30, MCV was 73 , platelets of 287. D-dimer on admission was below 200. On 01/23/18, sodium was 132, potassium , chloride 92, carbon dioxide 34, BUN 23, creatinine 0.76. Brain natriuretic peptide was 162 on day prior to discharge. The patient' s troponin ranged from 0.01 to 0.06 at its peak. Cholesterol profile showed triglycerides of 87, total cholesterol of 150, LDL of 95, HDL of 37. TSH was 0.42. The patient's nuclear medicine cardiac stress test as documented on 01/24/18 showed intermediate risk of moderate amount of reversible change in the anterior lateral wall of the left ventricle. Ejection fraction at stress was 49 % and at rest 60% with no focal wall motion abnormality. CONSULTATIONS DURING THE HOSPITAL STAY: Included Dr. Roy from Cardiology. Patient's transthoracic echocardiogram showed EF of greater than 60% with moderate concentric LVH, with moderate mitral annular calcification present with mild to nonrheumatic mitral stenosis and mild aortic stenosis. Comparing the prior study from 2017, no clinically significant changes were noted. At discharge, the patient is recommended to followup with Dr. Hernandez in approximately 4 to 7 days. She is recommended to follow up with Dr. Roy in approximately 1 month. HOSPITALIZATION COURSE: Sara Pickett is a 62-year-old female with history of tachycardia, likely CHF, since she had been on Lasix for "leg edema" as well as an episode of atrial fibrillation while having GI bleed in mid of 2016, who presented complaining of chest pain and shortness of breath. The patient was noted to be in acute diastolic CHF and diuresed with Lasix with the resolution of her symptoms. Nevertheless, her troponins were indeterminate and due to her risk factors, a cardiac stress test was performed. The stress test showed intermediate probability. The patient also complained of chest pain with exertion before presenting to the emergency department. Dr. Roy saw the patient in consultation and recommended cardiac catheterization, which patient refused. At this point, we will optimize medical treatment. The patient has history of GI bleed likely from hemorrhoids as she stated but none recently. The patient was placed on aspirin, statin, increased her beta pranay and she also was given a SANTI inhibitor. Her Lasix dose was increased from 40 to 60 mg daily. The patient had episodes of SVT and sinus tachycardia at admission, but that was controlled with increase on patient's beta pranay. The patient was asymptomatic from chest pain or worsening shortness of breath by the time of discharge. She does have severe COPD and obesity and uses oxygen at 2 L continuously. The patient continued to have bilateral feet pain, which is chronic. She stated that she used gabapentin in the past with no effect. She requested narcotic medication that she had used on as needed basis during the hospital stay. At this point, the patient is going to receive 3 days worth of [place] prescription. I-STOP was checked and her last [place] prescription was in December 2016. for the patient to follow up with her primary care provider in regard also to chronic feet pain likely due to neuropathy. Please note that this is a short summary of the patient's hospitalization. Please refer to further medical records for details. TIME SPENT: Approximately 50 minutes was spent on the patient's discharge. [id number]/[facility] #: [id number] KRISTINE
== END 2018-01-24 20:00 | disposition home or self-care (01) | DRG 194 ==
LOC: ED 02:58 → MEDTELE 08:53 → OBSVTOIN 01-22 09:25
PROVIDERS: ADMIT Internal Medicine; ATTEND Internal Medicine
PROC: 4A02XM4 Measurement of Cardiac Total Activity, External Approach (ICD-10-PCS; principal; 2018-01-23)
PROC: 3E073KZ Introduction of Other Diagnostic Substance into Coronary Artery, Percutaneous Approach (ICD-10-PCS; 2018-01-23)
DX: I11.0 Hypertensive heart disease with heart failure (principal); J96.11 Chronic respiratory failure with hypoxia; I47.1 Supraventricular tachycardia; Z68.41 Body mass index [BMI] 40.0-44.9, adult; K59.09 Other constipation; E05.90 Thyrotoxicosis, unspecified without thyrotoxic crisis or storm; J44.9 Chronic obstructive pulmonary disease, unspecified; E66.01 Morbid (severe) obesity due to excess calories; D50.9 Iron deficiency anemia, unspecified; I50.33 Acute on chronic diastolic (congestive) heart failure; K64.9 Unspecified hemorrhoids; I49.1 Atrial premature depolarization; G89.29 Other chronic pain; I34.2 Nonrheumatic mitral (valve) stenosis; I35.0 Nonrheumatic aortic (valve) stenosis; G62.9 Polyneuropathy, unspecified; I48.91 Unspecified atrial fibrillation; Z90.49 Acquired absence of other specified parts of digestive tract; Z82.49 Family history of ischemic heart disease and other diseases of the circulatory system; Z83.3 Family history of diabetes mellitus; Z87.891 Personal history of nicotine dependence; Z99.81 Dependence on supplemental oxygen; Z79.82 Long term (current) use of aspirin
CPT/HCPCS: 36415; 71045; 78452; 80048; 80053; 80061; 83605; 83735; 83880; 84443; 84484; 85025; 85379; 85610; 85730; 93005; 93017; 93306; 94640; 99284; A9270-GY; A9502; J0280; J1644; J1940; J2785; J2920

== ENCOUNTER 2018-10-04 12:29 | Inpatient (IN) | payer OTHER ==
[2018-10-04 15:18] LABS: Hematocrit 32 % (35-47); Hemoglobin 10.1 g/dl (12.0-16.0); Mean Corpuscular HGB Conc 32 g/dl (31-36); Mean Corpuscular Hemoglobin 27 pg (27-31); Mean Corpuscular Volume 85 fL (80-97); Mean Platelet Volume 8.1 fL (7.4-10.4); Platelet Count 384 10^3/ul (150-450); Red Blood Count 3.75 10^6/ul (4.00-5.40); Red Cell Distribution Width 14 % (10.5-15); White Blood Count 14.8 10^3/ul (3.5-10.8)
[2018-10-04] MEDS ORDERED: Dextrose 50% Syringe 50 ML* 25 GM/50 ML SYRINGE IV PUSH PRN (15:26)
[2018-10-04 15:29] LABS: Activated Partial Thrombo Time 30.2 seconds (26.0-36.3); INR 1.06 (0.77-1.02)
[2018-10-04 15:39] LABS: Troponin I 0.01 ng/mL (<0.04)
--- NOTE | 2018-10-04 15:46 | HP ---
H&P (Free Text) History and Physical: [facility] History and Physical CC: respiratory failure HPI: 62F with htn, hyperthyroid, fibromyalgia, afib, severe copd, chf, transferred from [place] for respiratory failure. The patient was admitted there on the for COPD/PNA/CHF. The patient failed to respond to treatment and became progressively worse. The patient was found to be markedly hypercapnic with a pCO2 of > 110. The patient was transferred to [facility] for ICU care. Here the patient is lethargic on bipap. She is arousable but quickly falls back asleep. History was obtained from the transfer summary. ROS - unable 2/2 ams PMHx - htn, hyperthyroid, fibromyalgia, afib, severe copd, chf PSHx - appendectomy All - chamomile flower FamHx - CAD SocHx - former smoker, no drugs, no etoh PE VS Vital Signs: Temp Pulse Resp BP Pulse Ox 98.2 F 100 19 156/98 95 10/04/18 14:49 10/04/18 14:52 10/04/18 14:52 10/04/18 14:52 10/04/18 14:52 Gen - obese female on bipap, lethargic heent - ncat, perrl neck - no able to visualize neck veins cv - s1/s2, tachy lungs - cta, dec bs at bases abd - soft, nt ext - no edema neuro - lethargic but arousable, moves all extremities, follows commands Labs Laboratory Results - last 24 hr 10/04/18 10/04/18 14:57 14:57 WBC 14.8 H RBC 3.75 L Hgb 10.1 L Hct 32 L MCV 85 MCH 27 MCHC 32 RDW 14 Plt Count 384 MPV 8.1 INR (Anticoag Therapy) 1.06 H APTT 30.2 Imaging CXR - pending Impression 62F with htn, hyperthyroid, fibromyalgia, afib, severe copd, chf, transferred from [place] for respiratory failure. Plan Neuro - ams - 2/2 hypercapnia - hold sedating medications CV - htn, chf - check tte - c/w asa/statin/bblocker - diuresis as tolerated - monitor on tele Pulm - hypoxic and hypercapnic respiratory failure - 2/2 copd/pna/chf - nebs q4h - steroid taper - wean bipap as tolerated - check abg ID - sepsis 2/2 pna - check urine legionella/pneumococcal ag - check blood cultures - check ua - empiric vanc/zosyn - check lactate - no iv fluids 2/2 chf gi - diet as tolerated renal - monitor lytes - monitor i/o heme - monitor cbc endo - hyperthyroid - c/w methimazole - check fs while on steroids lines - piv ppx - gi/dvt full code Admit to ICU Critical Care Time: 65 mins
[2018-10-04 15:55] LABS: Albumin 3.5 g/dL (3.2-5.2); Albumin/Globulin Ratio 1.3 (1-3); BUN/Creatinine Ratio 46.5 (8-20); Calcium 9.2 mg/dL (8.6-10.3); EGFR African American 178.9 (>60); EGFR Non-African American 147.8 (>60); Globulin 2.6 g/dL (2-4); Magnesium 2.2 mg/dL (1.9-2.7); Phosphorus 2.7 mg/dL (2.5-5.0); Total Bilirubin 0.3 mg/dL (0.2-1.0); Total Protein 6.1 g/dL (6.4-8.9)
[2018-10-04] MEDS: Albuterol/Ipratropium NEB.SOL* Albuterol 2.5 MG/Ipratropium 0.5 MG 3 ML INH SCH ×2 (15:55→19:49)
[2018-10-04 15:57] LABS: TSH (Thyroid Stimulating Horm) 0.05 mcIU/mL (0.34-5.60)
[2018-10-04] MEDS ORDERED: ZOSYN 3.375 GM x ONE DOSE over 30 miuntes IVPB ×2 (16:00)
[2018-10-04] MEDS ORDERED: Zosyn per Pharmacy* NOTE FOLLOW UP SCH (16:00)
[2018-10-04] MEDS ORDERED: Furosemide IV* 10 MG/ML VIAL (40 MG) IV SLOW PU ONE (16:00)
[2018-10-04] MEDS ORDERED: Vancomycin(*) 2,000 MG in NS 0.9% 500 ML* 500 ML IVPB ONE (16:00)
[2018-10-04 16:33] LABS: Immature Granulocytes 2 % (0-9); Lymphocytes % 4 %; Metamyelocytes % 1 % (0-2); Monocytes % 5 %; Myelocytes % 1 % (0-1); Neutrophil % 89 %
[2018-10-04 16:34] LABS: ABS Basophils 0 10^3/ul (0-0.2); ABS Eosinophils 0.1 10^3/ul (0-0.6); ABS Lymphocytes 0.8 10^3/ul (1.0-4.8); ABS Monocytes 0.5 10^3/ul (0-0.8); ABS Neutrophils 13.4 10^3/ul (1.5-7.7); ABS Nucleated RBC 0 10^3/ul; Nucleated Red Blood Cells % 0
[2018-10-04 16:51] LABS: Influenza A Molecular NEGATIVE (Negative); Influenza B Molecular NEGATIVE (Negative)
[2018-10-04] MEDS: methylPREDNISolone SOD 40 MG* 1 ML VIAL IV SCH (16:53)
[2018-10-04] MEDS ORDERED: Vancomycin(*) 0 MG in NS 0.9% 250 ML* 250 ML IVPB SCH (17:00)
--- NOTE | 2018-10-04 17:19 | ECHO ---
Patient: DUANE BERGER [facility] Rec#: [id number] : 1955 Date: 10/04/2018 Age: 62y Height: 164 cm / 64.6 in Weight: 118 kg / 260.1 lbs Sex: F BSA: 2.2 Room#: ICU 7 Admit Date#: 10/04/2018 Type: Inpatient Referring: Serg Hernandez DO Reading: Malika Bonilla MD [employer] Worker: Cheryl CuiRDCS,RDMS Transthoracic Echocardiogram Indication: CHF, respiratory failure BP: 156/98 HR: 99 Rhythm: NSR with PVCs Findings History: AOV stenosis, cardiomegaly, HTN, COPD, morbid obesity, former smoker Technical Comments: The study is technically limited due to poor parasternal windows. Left Ventricle: The left ventricular chamber size is decreased. Moderate to severe concentric left ventricular hypertrophy is observed. Basal septal hypertrophy and systolic anterior motion of the mitral valve are observed creating an outflow tract gradient. The left ventricle appears hyperdynamic. The estimated ejection fraction is 60-65%. There is an E to A reversal in the mitral valve flow pattern suggestive of diastolic dysfunction. Left Atrium: The left atrium is mildly dilated. Right Ventricle: The right ventricular chamber size and systolic function are within normal limits. Right Atrium: The right atrium is mildly dilated. Aortic Valve: The aortic valve leaflets are moderately thickened. Systolic excursion of the aortic valve cusps is reduced. There is no evidence of aortic regurgitation. There is mild aortic stenosis.LVOT obstruction limits accuracey of Doppler estimte of . Short axis imaging suboptimal, long axis immaging shows sclerosis with good opening of the leaflets on gross estimate. Mitral Valve: There is mitral annular calcification. The mitral valve leaflets are moderately thickened. There is trace to mild mitral regurgitation. Tricuspid Valve: The tricuspid valve leaflets are normal. There is mild to moderate tricuspid regurgitation. The right ventricular systolic pressure is estimated at 47 mmHg. There is evidence of moderate pulmonary hypertension. Pulmonic Valve: The pulmonic valve structure is not well visualized. Pericardium: There is no significant pericardial effusion. Aorta: The aorta is not well visualized. Pulmonary Artery: The main pulmonary artery is not well visualized. Venous: There is less than 50% respiratory change in the inferior vena cava dimension. Conclusions Technically limited and difficult study. The left ventricular chamber size is decreased. Moderate to severe concentric left ventricular hypertrophy is observed. The left ventricle appears hyperdynamic. The estimated ejection fraction is 60-65%. There is an E to A reversal in the mitral valve flow pattern suggestive of diastolic dysfunction. The right ventricular chamber size and systolic function are within normal limits. There is AV sclerosis and possible mild aortic stenosis, mean gradient 25 mmHg, LVOT obstruction limits accuracey of Doppler estimte of . See text. There is mitral annular calcification. The mitral valve leaflets are moderately thickened. There is trace to mild mitral regurgitation. There is trace tricuspid regurgitation. There is mild to moderate tricuspid regurgitation estimated at 47 mmHg. Compared with prior echo of 01/22/18, EF stable, small chamber size is new, mean gradient previously 15 mmHg, BERNADETTE and LVOT obstruction not noted on prior study. MAC, MV sclerosis noted and mild MS documented. Measurements Name Value Normal Range RVIDd (AP) 2D 3.3 cm (0.9 - 2.6) RAd ISD 4CH 5.6 cm (3.4 - 4.9) RA (A4C)W 4.1 cm (2.9 - 4.6) IVSd (2D) 2 cm (0.6 - 1) LVPWd (2D) 1.5 cm (0.6 - 1) LVIDd (2D) 3.4 cm (3.6 - 5.4) LVIDs (2D) 2.2 cm - LV FS (2D) 35 % (25 - 45) LAd ISD 4CH 6.2 cm (2.9 - 5.3) LA ISD 4CH W 5.1 cm (2.5 - 4.5) Name Value Normal Range LA ESV BP (A/L) index 35 ml/m2 - Name Value Normal Range MV E-wave Vmax 1.2 m/sec - MV deceleration time 240 msec - MV A-wave Vmax 1.9 m/sec - MV E:A ratio 0.7 ratio - LV septal e' Vmax 0.1 m/sec - LV lateral e' Vmax 0.07 m/sec - LV E:e' septal ratio 12 ratio - LV E:e' lateral ratio 19 ratio - Name Value Normal Range AV Vmax 3.2 m/sec - AV VTI 61 cm - AV peak gradient 41 mmHg - AV mean gradient 25 mmHg - LVOT diameter 2 cm - LVOT Vmax 1.5 m/sec - LVOT VTI 27 cm - LVOT peak gradient 9 mmHg - LVOT mean gradient 5 mmHg - DOI (VTI) 0.4 ratio - MARI (continuity Vmax) 1.5 cm2 - MARI (continuity VTI) 1.4 cm2 - Name Value Normal Range MV Vmax 2.1 m/sec - MV VTI 41 cm - MV peak gradient 18 mmHg - MV mean gradient 8 mmHg - MV PHT 50 msec - MVA (PHT) 4.4 cm2 - MVA (continuity VTI) 2.1 cm2 - Name Value Normal Range TR Vmax 3.3 m/sec - TR peak gradient 44 mmHg - RAP 3 mmHg - RVSP 47 mmHg - IVC diameter 2.3 cm - Name Value Normal Range PV Vmax 0.6 m/sec - PV peak gradient 1.4 mmHg -
[2018-10-04] MEDS: Insulin LISPRO* 1 UNITS UNIT SUBCUT SCH ×2 (18:24→21:43)
[2018-10-04 20:00] LABS: Urine Appearance Clear; Urine Bacteria Absent (Absent); Urine Bilirubin Negative (Negative); Urine Blood 1+ (Negative); Urine Color Colorless; Urine Glucose Negative (Negative); Urine Ketones Negative (Negative); Urine Nitrite Negative (Negative); Urine Protein Negative (Negative); Urine Red Blood Cell Trace(0-2/hpf) (Absent); Urine Specific Gravity 1.006 (1.010-1.030); Urine Squamous Epithelial Cell Present (Absent); Urine Urobilinogen Negative (Negative); Urine White Blood Cell Trace(0-5/hpf) (Absent)
[2018-10-04] MEDS: ZOSYN 3.375 GM Q8H per EXTENDED INFUSION IVPB SCH ×2 (21:44)
[2018-10-04] MEDS: Heparin VIAL(*) 5000 UNITS/ML VIAL (FIVE THOUSAND) SUBCUT SCH (21:44)
[2018-10-05] MEDS: Albuterol/Ipratropium NEB.SOL* Albuterol 2.5 MG/Ipratropium 0.5 MG 3 ML INH SCH ×6 (00:21→19:53)
[2018-10-05 00:37] LABS: Hematocrit 31 % (35-47); Mean Corpuscular HGB Conc 32 g/dl (31-36); Mean Corpuscular Hemoglobin 27 pg (27-31); Mean Corpuscular Volume 84 fL (80-97); Mean Platelet Volume 7.8 fL (7.4-10.4); Platelet Count 400 10^3/ul (150-450); Red Blood Count 3.72 10^6/ul (4.00-5.40); Red Cell Distribution Width 14 % (10.5-15)
[2018-10-05 00:53] LABS: EGFR African American 150.3 (>60); EGFR Non-African American 124.2 (>60); Magnesium 1.9 mg/dL (1.9-2.7)
[2018-10-05 01:20] LABS: ABS Basophils 0.1 10^3/ul (0-0.2); ABS Eosinophils 0 10^3/ul (0-0.6); ABS Lymphocytes 0.7 10^3/ul (1.0-4.8); ABS Monocytes 0.2 10^3/ul (0-0.8); ABS Neutrophils 10.2 10^3/ul (1.5-7.7); ABS Nucleated RBC 0 10^3/ul; Eosinophil % 0 %; Lymphocyte % 6.7 %; Nucleated Red Blood Cells % 0.2
[2018-10-05] MEDS: Vancomycin(*) 1,000 MG in NS 0.9% 250 ML* 250 ML IVPB SCH ×4 (01:44→21:29)
[2018-10-05] MEDS: methylPREDNISolone SOD 40 MG* 1 ML VIAL IV SCH ×2 (05:35→16:10)
[2018-10-05] MEDS: ZOSYN 3.375 GM Q8H per EXTENDED INFUSION IVPB SCH ×6 (05:36→20:15)
[2018-10-05] MEDS ORDERED: Morphine VIAL* 4 MG/ML VIAL (1 ml vial) IV ONE (08:27)
[2018-10-05] MEDS: Insulin LISPRO* 1 UNITS UNIT SUBCUT SCH ×4 (08:44→21:03)
[2018-10-05] MEDS ORDERED: Furosemide IV* 10 MG/ML VIAL (40 MG) IV SLOW PU ONE (08:45)
--- NOTE | 2018-10-05 08:46 | PN ---
Date of Service: 10/05/18 Critical Care Services: 62F with htn, hyperthyroid, fibromyalgia, afib, severe copd, chf, transferred from [place] for respiratory failure. 10/05: diuresed 3.3L yesterday with 80mg iv lasix. now laying flat. off bipap. TTE with new LVOT obstruction. Call placed to cardiology who will review echo. Vital Signs: Temp Pulse Resp BP SpO2 FiO2 98.6 F 112 24 164/83 91 60 10/05/18 06:01 10/05/18 07:51 10/05/18 07:51 10/05/18 06:00 10/05/18 07:51 10/05 03:15 Physical Exam: Gen - obese female, nad heent - ncat, perrl neck - not able to visualize neck veins cv - s1/s2, tachy lungs - cta, dec bs at bases, +ronchi abd - soft, nt ext - no edema neuro - non-focal Fluid Balance (Past 24 Hours): I= O= Net Intake & Output 10/03/18 10/04/18 10/05/18 10/06/18 06:59 06:59 06:59 06:59 Intake Total 471 Output Total 3780 Balance -3309 Weight 113.7 kg Intake: IV Fluids 371 NS (0.9%) 371 Oral 100 Output: Ellis 3780 Other: Estimated Void Large # Voids 2 Labs: Laboratory Results - last 24 hr 10/04/18 10/04/18 10/04/18 14:45 14:57 14:57 WBC RBC Hgb Hct MCV MCH MCHC RDW Plt Count MPV Neut % (Auto) Lymph % (Auto) [place] % (Auto) Eos % (Auto) Baso % (Auto) Absolute Neuts (auto) Absolute Lymphs (auto) Absolute Monos (auto) Absolute Eos (auto) Absolute Basos (auto) Absolute Nucleated RBC Immature Gran % Neutrophils % Lymphocytes % Monocytes % Metamyelocytes % Myelocytes % Nucleated RBC % Normal RBC Morphology INR (Anticoag Therapy) 1.06 H APTT 30.2 Patient Temperature Not Reportable ABG pH ABG pH (Temp Correct) ABG pCO2 ABG pCO2 (Temp Corrct ABG pO2 ABG pO2 (Temp Correct ABG HCO3 ABG O2 Saturation ABG Base Excess Respiration Rate Ventilator Type Not Reportable Vent Mode Not Reportable FiO2 Inspiratory Time Not Reportable PEEP Not Reportable Pressure Support Not Reportable Pressure Control Not Reportable EPAP IPAP BiPAP Sodium 135 Potassium 5.0 Chloride 94 L Carbon Dioxide 37 H Anion Gap 4 BUN 20 Creatinine 0.43 L Est GFR ( Amer) 178.9 Est GFR (Non-Af Amer) 147.8 BUN/Creatinine Ratio 46.5 H Glucose 103 H POC Glucose (mg/dL) Hemoglobin A1c Lactic Acid Calcium 9.2 Phosphorus 2.7 Magnesium 2.2 Total Bilirubin 0.30 AST 14 ALT 22 Alkaline Phosphatase 58 Troponin I 0.01 B-Natriuretic Peptide Total Protein 6.1 L Albumin 3.5 Globulin 2.6 Albumin/Globulin Ratio 1.3 Triglycerides 109 Cholesterol 169 LDL Cholesterol 116 HDL Cholesterol 31.0 TSH 0.05 L Urine Color Urine Appearance Urine pH Ur Specific [place] Urine Protein Urine Ketones Urine Blood Urine Nitrate Urine Bilirubin Urine Urobilinogen Ur Leukocyte Esterase Urine WBC (Auto) Urine RBC (Auto) Ur Squamous Epith Cells Urine Bacteria Urine Glucose Influenza A (Rapid) Influenza B (Rapid) 10/04/18 10/04/18 10/04/18 14:57 14:57 14:57 WBC 14.8 H RBC 3.75 L Hgb 10.1 L Hct 32 L MCV 85 MCH 27 MCHC 32 RDW 14 Plt Count 384 MPV 8.1 Neut % (Auto) Not Reportable Lymph % (Auto) Not Reportable Woodson % (Auto) Not Reportable Eos % (Auto) Not Reportable Baso % (Auto) Not Reportable Absolute Neuts (auto) 13.4 H Absolute Lymphs (auto) 0.8 L Absolute Monos (auto) 0.5 Absolute Eos (auto) 0.1 Absolute Basos (auto) 0 Absolute Nucleated RBC 0 Immature Gran % 2 Neutrophils % 89 Lymphocytes % 4 Monocytes % 5 Metamyelocytes % 1 Myelocytes % 1 Nucleated RBC % 0 Normal RBC Morphology Normal INR (Anticoag Therapy) APTT Patient Temperature ABG pH ABG pH (Temp Correct) ABG pCO2 ABG pCO2 (Temp Corrct ABG pO2 ABG pO2 (Temp Correct ABG HCO3 ABG O2 Saturation ABG Base Excess Respiration Rate Ventilator Type Vent Mode FiO2 Inspiratory Time PEEP Pressure Support Pressure Control EPAP IPAP BiPAP Sodium Potassium Chloride Carbon Dioxide Anion Gap BUN Creatinine Est GFR ( Amer) Est GFR (Non-Af Amer) BUN/Creatinine Ratio Glucose POC Glucose (mg/dL) Hemoglobin A1c 6.0 H Lactic Acid Calcium Phosphorus Magnesium Total Bilirubin AST ALT Alkaline Phosphatase Troponin I B-Natriuretic Peptide 593 H Total Protein Albumin Globulin Albumin/Globulin Ratio Triglycerides Cholesterol LDL Cholesterol HDL Cholesterol TSH Urine Color Urine Appearance Urine pH Ur Specific [place] Urine Protein Urine Ketones Urine Blood Urine Nitrate Urine Bilirubin Urine Urobilinogen Ur Leukocyte Esterase Urine WBC (Auto) Urine RBC (Auto) Ur Squamous Epith Cells Urine Bacteria Urine Glucose Influenza A (Rapid) Influenza B (Rapid) 10/04/18 10/04/18 10/04/18 14:57 16:39 16:45 WBC RBC Hgb Hct MCV MCH MCHC RDW Plt Count MPV Neut % (Auto) Lymph % (Auto) Woodson % (Auto) Eos % (Auto) Baso % (Auto) Absolute Neuts (auto) Absolute Lymphs (auto) Absolute Monos (auto) Absolute Eos (auto) Absolute Basos (auto) Absolute Nucleated RBC Immature Gran % Neutrophils % Lymphocytes % Monocytes % Metamyelocytes % Myelocytes % Nucleated RBC % Normal RBC Morphology INR (Anticoag Therapy) APTT Patient Temperature ABG pH 7.33 L ABG pH (Temp Correct) Not Reportable ABG pCO2 70 H ABG pCO2 (Temp Corrct Not Reportable ABG pO2 60 L ABG pO2 (Temp Correct Not Reportable ABG HCO3 31.2 H ABG O2 Saturation 92.9 L ABG Base Excess 8.3 H Respiration Rate 14 Ventilator Type Vent Mode FiO2 50 Inspiratory Time PEEP Pressure Support Pressure Control EPAP 8 IPAP 15 BiPAP s/t Sodium Potassium Chloride Carbon Dioxide Anion Gap BUN Creatinine Est GFR ( Amer) Est GFR (Non-Af Amer) BUN/Creatinine Ratio Glucose POC Glucose (mg/dL) Hemoglobin A1c Lactic Acid 0.5 Calcium Phosphorus Magnesium Total Bilirubin AST ALT Alkaline Phosphatase Troponin I B-Natriuretic Peptide Total Protein Albumin Globulin Albumin/Globulin Ratio Triglycerides Cholesterol LDL Cholesterol HDL Cholesterol TSH Urine Color Urine Appearance Urine pH Ur Specific [place] Urine Protein Urine Ketones Urine Blood Urine Nitrate Urine Bilirubin Urine Urobilinogen Ur Leukocyte Esterase Urine WBC (Auto) Urine RBC (Auto) Ur Squamous Epith Cells Urine Bacteria Urine Glucose Influenza A (Rapid) Negative Influenza B (Rapid) Negative 10/04/18 10/04/18 10/04/18 18:23 19:30 21:35 WBC RBC Hgb Hct MCV MCH MCHC RDW Plt Count MPV Neut % (Auto) Lymph % (Auto) Woodson % (Auto) Eos % (Auto) Baso % (Auto) Absolute Neuts (auto) Absolute Lymphs (auto) Absolute Monos (auto) Absolute Eos (auto) Absolute Basos (auto) Absolute Nucleated RBC Immature Gran % Neutrophils % Lymphocytes % Monocytes % Metamyelocytes % Myelocytes % Nucleated RBC % Normal RBC Morphology INR (Anticoag Therapy) APTT Patient Temperature ABG pH ABG pH (Temp Correct) ABG pCO2 ABG pCO2 (Temp Corrct ABG pO2 ABG pO2 (Temp Correct ABG HCO3 ABG O2 Saturation ABG Base Excess Respiration Rate Ventilator Type Vent Mode FiO2 Inspiratory Time PEEP Pressure Support Pressure Control EPAP IPAP BiPAP Sodium Potassium Chloride Carbon Dioxide Anion Gap BUN Creatinine Est GFR ( Amer) Est GFR (Non-Af Amer) BUN/Creatinine Ratio Glucose POC Glucose (mg/dL) 127 H 131 H Hemoglobin A1c Lactic Acid Calcium Phosphorus Magnesium Total Bilirubin AST ALT Alkaline Phosphatase Troponin I B-Natriuretic Peptide Total Protein Albumin Globulin Albumin/Globulin Ratio Triglycerides Cholesterol LDL Cholesterol HDL Cholesterol TSH Urine Color Colorless Urine Appearance Clear Urine pH 5.0 Ur Specific [place] 1.006 L Urine Protein Negative Urine Ketones Negative Urine Blood 1+ A Urine Nitrate Negative Urine Bilirubin Negative Urine Urobilinogen Negative Ur Leukocyte Esterase Negative Urine WBC (Auto) Trace(0-5/hpf) Urine RBC (Auto) Trace(0-2/hpf) Ur Squamous Epith Cells Present A Urine Bacteria Absent Urine Glucose Negative Influenza A (Rapid) Influenza B (Rapid) 10/05/18 10/05/18 00:30 00:30 WBC 11.0 H RBC 3.72 L Hgb 10.0 L Hct 31 L MCV 84 MCH 27 MCHC 32 RDW 14 Plt Count 400 MPV 7.8 Neut % (Auto) 90.7 Lymph % (Auto) 6.7 Woodson % (Auto) 2.0 Eos % (Auto) 0 Baso % (Auto) 0.6 Absolute Neuts (auto) 10.2 H Absolute Lymphs (auto) 0.7 L Absolute Monos (auto) 0.2 Absolute Eos (auto) 0 Absolute Basos (auto) 0.1 Absolute Nucleated RBC 0 Immature Gran % Neutrophils % Lymphocytes % Monocytes % Metamyelocytes % Myelocytes % Nucleated RBC % 0.2 Normal RBC Morphology INR (Anticoag Therapy) APTT Patient Temperature ABG pH ABG pH (Temp Correct) ABG pCO2 ABG pCO2 (Temp Corrct ABG pO2 ABG pO2 (Temp Correct ABG HCO3 ABG O2 Saturation ABG Base Excess Respiration Rate Ventilator Type Vent Mode FiO2 Inspiratory Time PEEP Pressure Support Pressure Control EPAP IPAP BiPAP Sodium 138 Potassium 4.0 Chloride 90 L Carbon Dioxide 40 H Anion Gap 8 BUN 19 Creatinine 0.50 L Est GFR ( Amer) 150.3 Est GFR (Non-Af Amer) 124.2 BUN/Creatinine Ratio 38.0 H Glucose 121 H POC Glucose (mg/dL) Hemoglobin A1c Lactic Acid Calcium 9.0 Phosphorus Magnesium 1.9 Total Bilirubin AST ALT Alkaline Phosphatase Troponin I B-Natriuretic Peptide Total Protein Albumin Globulin Albumin/Globulin Ratio Triglycerides Cholesterol LDL Cholesterol HDL Cholesterol TSH Urine Color Urine Appearance Urine pH Ur Specific [place] Urine Protein Urine Ketones Urine Blood Urine Nitrate Urine Bilirubin Urine Urobilinogen Ur Leukocyte Esterase Urine WBC (Auto) Urine RBC (Auto) Ur Squamous Epith Cells Urine Bacteria Urine Glucose Influenza A (Rapid) Influenza B (Rapid) Nutrition: CXR 10/04 Impression: Findings suggestive of congestive heart failure or pneumonia. TTE 10/04 Technically limited and difficult study. The left ventricular chamber size is decreased. Moderate to severe concentric left ventricular hypertrophy is observed. The left ventricle appears hyperdynamic. The estimated ejection fraction is 60-65%. There is an E to A reversal in the mitral valve flow pattern suggestive of diastolic dysfunction. The right ventricular chamber size and systolic function are within normal limits. There is AV sclerosis and possible mild aortic stenosis, mean gradient 25 mmHg, LVOT obstruction limits accuracey of Doppler estimte of . See text. There is mitral annular calcification. The mitral valve leaflets are moderately thickened. There is trace to mild mitral regurgitation. There is trace tricuspid regurgitation. There is mild to moderate tricuspid regurgitation estimated at 47 mmHg. Compared with prior echo of 01/22/18, EF stable, small chamber size is new, mean gradient previously 15 mmHg, BERNADETTE and LVOT obstruction not noted on prior study. MAC, MV sclerosis noted and mild MS documented. Impression: 62F with htn, hyperthyroid, fibromyalgia, afib, severe copd, chf, transferred from [place] for respiratory failure. Plan: Neuro - ams - 2/2 hypercapnia - improving CV - htn, chf - TTE with diastolic CHF - new LVOT obstruction? - cardiology reviewing tte - c/w asa/statin/bblocker - diuresis as tolerated - monitor on tele Pulm - hypoxic and hypercapnic respiratory failure - 2/2 copd/pna/chf - nebs q4h - steroid taper - wean bipap as tolerated - abg with compensated hypercapnia ID - sepsis 2/2 pna - urine legionella/pneumococcal neg - blood cultures pending - ua neg - empiric vanc/zosyn - lactate normal - no iv fluids 2/2 chf gi - diet as tolerated renal - monitor lytes - monitor i/o heme - monitor cbc endo - hyperthyroid - c/w methimazole - check fs while on steroids lines - piv ppx - gi/dvt full code Stable for transfer to telemetry Critical Care Time: 65 mins
[2018-10-05] MEDS: Methimazole TAB* 5 MG PO SCH (08:53)
[2018-10-05] MEDS: Heparin VIAL(*) 5000 UNITS/ML VIAL (FIVE THOUSAND) SUBCUT SCH ×2 (08:53→20:21)
[2018-10-05] MEDS: Diltiazem CD CAP* 180 MG PO SCH (08:53)
[2018-10-05] MEDS: Pantoprazole TAB * 40 MG TAB PO SCH (08:53)
[2018-10-05] MEDS ORDERED: Vancomycin Trough Check NOTE FOLLOW UP ONE (12:00)
[2018-10-05] MEDS ORDERED: Vancomycin per Pharmacy* NOTE FOLLOW UP PRN (14:48)
[2018-10-05] MEDS: HYDROcodone/ACETAMIN 5-325 MG* 1 TAB PO PRN ×3 (16:10→23:22)
[2018-10-05] MEDS ORDERED: Albuterol 2.5 MG/3 ML NEB.SOL* (0.083%) INH PRN (22:19)
[2018-10-05] MEDS ORDERED: Albuterol 2.5 MG/3 ML NEB.SOL* (0.083%) INH ONE (22:25)
[2018-10-06] MEDS: Albuterol/Ipratropium NEB.SOL* Albuterol 2.5 MG/Ipratropium 0.5 MG 3 ML INH SCH ×2 (01:38→07:27)
[2018-10-06] MEDS: methylPREDNISolone SOD 40 MG* 1 ML VIAL IV SCH ×2 (03:28→15:50)
[2018-10-06] MEDS: ZOSYN 3.375 GM Q8H per EXTENDED INFUSION IVPB SCH ×6 (04:09→21:01)
[2018-10-06] MEDS: Vancomycin(*) 1,000 MG in NS 0.9% 250 ML* 250 ML IVPB SCH ×3 (05:31→21:24)
[2018-10-06 06:07] LABS: ABS Basophils 0 10^3/ul (0-0.2); ABS Eosinophils 0 10^3/ul (0-0.6); ABS Lymphocytes 0.8 10^3/ul (1.0-4.8); ABS Monocytes 0.6 10^3/ul (0-0.8); ABS Neutrophils 14.7 10^3/ul (1.5-7.7); ABS Nucleated RBC 0 10^3/ul; Eosinophil % 0 %; Hematocrit 30 % (35-47); Hemoglobin 9.7 g/dl (12.0-16.0); Lymphocyte % 5.2 %; Mean Corpuscular HGB Conc 33 g/dl (31-36); Mean Corpuscular Hemoglobin 27 pg (27-31); Mean Corpuscular Volume 83 fL (80-97); Mean Platelet Volume 7.8 fL (7.4-10.4); Nucleated Red Blood Cells % 0; Platelet Count 395 10^3/ul (150-450); Red Blood Count 3.54 10^6/ul (4.00-5.40); Red Cell Distribution Width 14 % (10.5-15); White Blood Count 16.2 10^3/ul (3.5-10.8)
[2018-10-06 06:32] LABS: BUN/Creatinine Ratio 43.1 (8-20); EGFR African American 146.9 (>60); EGFR Non-African American 121.4 (>60); Potassium 4.2 mmol/L (3.5-5.0)
[2018-10-06] MEDS: Diltiazem CD CAP* 180 MG PO SCH (08:07)
[2018-10-06] MEDS: Methimazole TAB* 5 MG PO SCH (08:07)
[2018-10-06] MEDS: Heparin VIAL(*) 5000 UNITS/ML VIAL (FIVE THOUSAND) SUBCUT SCH ×2 (08:08→21:00)
[2018-10-06] MEDS: Insulin LISPRO* 1 UNITS UNIT SUBCUT SCH ×4 (08:08→21:00)
[2018-10-06] MEDS: Pantoprazole TAB * 40 MG TAB PO SCH (08:08)
[2018-10-06] MEDS: HYDROcodone/ACETAMIN 5-325 MG* 1 TAB PO PRN ×3 (09:42→21:01)
[2018-10-06] MEDS ORDERED: Albuterol/Ipratropium NEB.SOL* Albuterol 2.5 MG/Ipratropium 0.5 MG 3 ML INH PRN (12:13)
--- NOTE | 2018-10-06 20:17 | PN ---
Subjective Date of Service: 10/06/18 Interval History: Resting in bed on assessment. Reports shortness of breath is slightly improving. Per nurse notes patient is declined bipap. Discussed benefits of bipap and risks of not wearing it. Patient stated understanding. Denies cp, sob, palpitations, nausea, vomiting, diarrhea, fever, chills. Objective Active Medications: Hydrocodone Bitart/Acetaminophen ([place] 5-325 Tab*) 1 tab PO Q3H PRN PRN Reason: PAIN - MODERATE Last Admin: 10/06/18 16:58 Dose: 1 tab Albuterol (Ventolin 2.5 Mg/3 Ml Neb.Araceli*) 2.5 mg INH Q4H PRN PRN Reason: SOB/WHEEZING Albuterol/Ipratropium (Duoneb (Albuterol 2.5 Mg/Ipratropium 0.5 Mg)) 1 neb INH [id number] AWAKE PRN PRN Reason: SOB/WHEEZING Dextrose (D50w Syringe 50 Ml*) 12.5 gm IV PUSH .FOR FS < 60 - SS PRN PRN Reason: FS < 60 Diltiazem HCl (Cardizem Cd Cap*) 180 mg PO DAILY ON LICENSE OF [facility] Last Admin: 10/06/18 08:07 Dose: 180 mg Heparin Sodium (Porcine) (Heparin Vial(*)) 5,000 units SUBCUT Q12HR ON LICENSE OF [facility] Last Admin: 10/06/18 08:08 Dose: 5,000 units Piperacillin Sod/Tazobactam (Sod 3.375 gm/ Sodium Chloride) 100 mls @ 25 mls/ hr IVPB Q8H ON LICENSE OF [facility] Last Admin: 10/06/18 12:43 Dose: 25 mls/hr Vancomycin HCl 1,000 mg/ (Sodium Chloride) 250 mls @ 166.667 mls/hr IVPB Q8HR ON LICENSE OF [facility] Last Admin: 10/06/18 15:50 Dose: 166.667 mls/hr Insulin Human Lispro (Humalog*) 0 units SUBCUT FS ACHS ICU ON LICENSE OF [facility]; Protocol Last Admin: 10/06/18 17:34 Dose: Not Given Magnesium Hydroxide (Milk Of Magnesia Liq*) 30 ml PO BID ON LICENSE OF [facility] Methimazole (Tapazole Tab*) 10 mg PO DAILY ON LICENSE OF [facility] Last Admin: 10/06/18 08:07 Dose: 10 mg Methylprednisolone Sodium Succinate (Solu-Medrol 40 Mg) 40 mg IV Q12H ON LICENSE OF [facility] Last Admin: 10/06/18 15:50 Dose: 40 mg Pantoprazole Sodium (Protonix Tab (Nf)) 40 mg PO DAILY ON LICENSE OF [facility] Last Admin: 10/06/18 08:08 Dose: 40 mg Pharmacy Consult (Zosyn Per Pharmacy*) 1 note FOLLOW UP .ZOSYN PER PHARMACY ON LICENSE OF [facility] Stop: 10/11/18 15:59 Pharmacy Consult (Vancomycin Per Pharmacy*) 1 note FOLLOW UP . PRN PRN Reason: PER PROTOCOL Pharmacy Profile Note (Vancomycin Trough Check) 1 note FOLLOW UP ONCE ONE Stop: 10/07/18 05:31 Vital Signs - 8 hr 10/06/18 10/06/18 10/06/18 13:50 15:36 16:03 Temperature 97.5 F 97.5 F Pulse Rate 95 98 Respiratory 19 16 18 Rate Blood Pressure 157/70 149/79 (mmHg) O2 Sat by Pulse 94 94 Oximetry 10/06/18 10/06/18 10/06/18 16:58 18:53 19:23 Temperature Pulse Rate Respiratory 19 18 16 Rate Blood Pressure (mmHg) O2 Sat by Pulse 94 Oximetry Oxygen Devices in Use Now: Nasal Cannula Appearance: Comfortable, NAD Eyes: No Scleral Icterus Ears/Nose/Mouth/Throat: Clear Oropharnyx, Mucous Membranes Moist Neck: NL Appearance and Movements; NL JVP Respiratory: Symmetrical Chest Expansion and Respiratory Effort, Clear to Auscultation Cardiovascular: NL Sounds; No Murmurs; No JVD, RRR, - - Trace bilateral LE edema Abdominal: NL Sounds; No Tenderness; No Distention Lymphatic: No Cervical Adenopathy Extremities: No Clubbing, Cyanosis Skin: No Rash or Ulcers Neurological: Alert and Oriented x 3 Nutrition: Taking PO's Result Diagrams: 10/06/18 05:24 10/06/18 05:24 Microbiology and Other Data: Microbiology 10/04/18 17:38 Aerobic Blood Culture - Preliminary Blood Venous No Growth Day 2 Anaerobic Blood Culture - Preliminary No Growth Day 2 10/04/18 17:31 Aerobic Blood Culture - Preliminary Blood Venous No Growth Day 2 Anaerobic Blood Culture - Preliminary No Growth Day 2 10/04/18 19:30 Urine Culture - Final Urine No Growth (<1,000 CFU/mL) 10/04/18 19:30 Legionella Urinary Antigen - Final Urine Negative Legionella Antigen Streptococcus pneumoniae Ag Screen - Final Negative S. pneumo Antigen 10/04/18 16:29 Nasal Screen MRSA (PCR) - Final Nasal Mrsa Not Detected 10/04/18 16:29 Influenza Types A,B Antigen - Final Nasal Specimen received for Influenza A/B Molecular testing Assess/Plan/Problems-Billing Assessment: 62 yr old female with pmh of htn, hyperthyroid, fibro, afib, copd, chf; who was transferred to [facility] for resp failure - Patient Problems (1) Pneumonia Comment: - Cont IV abx. - Repeat chest xray ordered for tomorrow, maybe deesculate abx after? - Cont nebs (2) Acute and chronic respiratory failure Comment: - Requiring 3L and usually wears 2L at home - Refusing bipap at night - Cont supplemental O2, wean as tolerates (3) Hyperthyroidism Comment: - Cont methimazole - FSBG while on steriods (4) Acute diastolic (congestive) heart failure Comment: - While in ICU diuresed 3/3 L with 80 IV lasix and symptoms improved - Echo showed new LVOT obstruction. Cardiology consulted - Daily weights (5) COPD (chronic obstructive pulmonary disease) Comment: - Cont nebs and supplemental O2 - On IV steriods, Solumedrol 40 IV Q 12 x 2.5 days. (6) DVT prophylaxis Comment: - HSQ (7) HTN (hypertension) Comment: - Restarted BB at lower dose as she was started on Cardizem during this admission - Holding Lisinopril for now - Cont to monitor (8) CAD (coronary artery disease) Comment: - Prevous stress test revealed moderate to large area of reversible ischemia to anterolateral wall; declined cath and is medically managed - BB restarted at lower dose - ASA restarted (9) Atrial fibrillation with RVR Comment: - Per documentation patient has brief episode of Afib with RVR on previous admission which resolved - Cont tele Attending: Giovanni Holloway
[2018-10-06] MEDS: Atorvastatin* 20 MG TAB PO SCH (21:00)
[2018-10-06] MEDS ORDERED: Metoprolol Tartrate TAB* 50 mg PO SCH (21:00)
[2018-10-06] MEDS: Magnesium Hydroxide LIQ* 30 ML UDC PO SCH (21:01)
[2018-10-07] MEDS: methylPREDNISolone SOD 40 MG* 1 ML VIAL IV SCH ×2 (03:29→16:31)
[2018-10-07] MEDS: ZOSYN 3.375 GM Q8H per EXTENDED INFUSION IVPB SCH ×4 (04:39→12:21)
[2018-10-07] MEDS ORDERED: Vancomycin Trough Check NOTE FOLLOW UP ONE (05:30)
[2018-10-07 06:58] LABS: Hematocrit 32 % (35-47); Mean Corpuscular HGB Conc 32 g/dl (31-36); Mean Corpuscular Hemoglobin 27 pg (27-31); Mean Corpuscular Volume 84 fL (80-97); Platelet Count 363 10^3/ul (150-450); Red Blood Count 3.74 10^6/ul (4.00-5.40); Red Cell Distribution Width 14 % (10.5-15); White Blood Count 13.9 10^3/ul (3.5-10.8)
[2018-10-07 07:17] LABS: Calcium 9.3 mg/dL (8.6-10.3); Magnesium 2.2 mg/dL (1.9-2.7)
[2018-10-07 07:22] LABS: BUN/Creatinine Ratio 39.2 (8-20); EGFR African American 146.9 (>60); EGFR Non-African American 121.4 (>60); Vancomycin Trough 13.4 mcg/mL
[2018-10-07] MEDS: Vancomycin(*) 1,000 MG in NS 0.9% 250 ML* 250 ML IVPB SCH (07:27)
[2018-10-07 07:34] LABS: Potassium 5.1 mmol/L (3.5-5.0)
[2018-10-07] MEDS: Diltiazem CD CAP* 180 MG PO SCH (07:40)
[2018-10-07] MEDS: Pantoprazole TAB * 40 MG TAB PO SCH (07:40)
[2018-10-07] MEDS: Magnesium Hydroxide LIQ* 30 ML UDC PO SCH ×2 (07:40→20:42)
[2018-10-07] MEDS: HYDROcodone/ACETAMIN 5-325 MG* 1 TAB PO PRN ×3 (07:40→20:42)
[2018-10-07] MEDS: Methimazole TAB* 5 MG PO SCH (07:41)
[2018-10-07] MEDS: Aspirin 81 mg CHEW TAB* 81 MG TAB.CHEW PO SCH (07:41)
[2018-10-07] MEDS: Heparin VIAL(*) 5000 UNITS/ML VIAL (FIVE THOUSAND) SUBCUT SCH ×2 (07:41→20:43)
[2018-10-07] MEDS: Insulin LISPRO* 1 UNITS UNIT SUBCUT SCH ×4 (07:41→20:43)
[2018-10-07 07:46] LABS: ABS Basophils 0 10^3/ul (0-0.2); ABS Eosinophils 0.1 10^3/ul (0-0.6); ABS Neutrophils 12.2 10^3/ul (1.5-7.7); Lymphocytes % 4 %; Microcytosis 1+; Monocytes % 7 %; Neutrophil % 88 %; Nucleated Red Blood Cells/100 1 (0-0); Polychromasia 1+
[2018-10-07] MEDS ORDERED: Metoprolol Tartrate TAB* 25 MG PO SCH (09:00)
[2018-10-07] MEDS ORDERED: Vancomycin(*) 1,250 MG in NS 0.9% 250 ML* 250 ML IVPB SCH (14:00)
--- NOTE | 2018-10-07 14:32 | PN ---
Subjective Date of Service: 10/07/18 Interval History: Ms. Pickett reports that she is feeling better overall. She reports minimal SOB, denies chest pain. She does have lower extremity edema which she feels is worse. She denies other complaint including nausea or abdominal pain. Objective Active Medications: Hydrocodone Bitart/Acetaminophen ([place] 5-325 Tab*) 1 tab PO Q3H PRN Albuterol (Ventolin 2.5 Mg/3 Ml Neb.Araceli*) 2.5 mg INH Q4H PRN Albuterol/Ipratropium (Duoneb (Albuterol 2.5 Mg/Ipratropium 0.5 Mg)) 1 neb INH [id number] AWAKE PRN Aspirin (Aspirin 81 Mg Chew Tab*) 81 mg PO DAILY [facility] Atorvastatin Calcium (Lipitor*) 20 mg PO 2100 [facility] Dextrose (D50w Syringe 50 Ml*) 12.5 gm IV PUSH .FOR FS < 60 - SS PRN Diltiazem HCl (Cardizem Cd Cap*) 180 mg PO DAILY [facility] Heparin Sodium (Porcine) (Heparin Vial(*)) 5,000 units SUBCUT Q12HR [facility]ENT[facility] Piperacillin Sod/Tazobactam (Sod 3.375 gm/ Sodium Chloride) 100 mls @ 25 mls/ hr IVPB Q8H [facility]AN[facility] Vancomycin HCl 1,250 mg/ (Sodium Chloride) 250 mls @ 166.667 mls/hr IVPB Q8H [facility] Insulin Human Lispro (Humalog*) 0 units SUBCUT FS ACHS ICU JEANETH; Protocol Magnesium Hydroxide (Milk Of Magnesia Liq*) 30 ml PO BID [facility] Methimazole (Tapazole Tab*) 10 mg PO DAILY [facility] Methylprednisolone Sodium Succinate (Solu-Medrol 40 Mg) 40 mg IV Q12H [facility] Metoprolol Tartrate (Lopressor Tab*) 25 mg PO BID [facility] Pantoprazole Sodium (Protonix Tab (Nf)) 40 mg PO DAILY [facility] Pharmacy Consult (Zosyn Per Pharmacy*) 1 note FOLLOW UP .ZOSYN PER PHARMACY [facility] Pharmacy Consult (Vancomycin Per Pharmacy*) 1 note FOLLOW UP . PRN Pharmacy Profile Note (Vancomycin Trough Check) 1 note FOLLOW UP ONCE ONE Vital Signs: Temp Pulse Resp BP Pulse Ox 97.8 F 92 22 162/99 100 10/07/18 11:06 10/07/18 11:06 10/07/18 11:30 10/07/18 11:06 10/07/18 11:06 Oxygen Devices in Use Now: Nasal Cannula Appearance: Female sitting up in bed in NAD Eyes: No Scleral Icterus Ears/Nose/Mouth/Throat: Mucous Membranes Moist Respiratory: Symmetrical Chest Expansion and Respiratory Effort, - - minimal crackles in bases Cardiovascular: NL Sounds; No Murmurs; No JVD, - - +1-2 pitting edema in feet and ankles Abdominal: NL Sounds; No Tenderness; No Distention Skin: No Rash or Ulcers Neurological: Alert and Oriented x 3, NL Muscle Strength and Tone Nutrition: Taking PO's Result Diagrams: 10/07/18 06:33 10/07/18 06:33 Microbiology and Other Data: . Assess/Plan/Problems-Billing Assessment: Ms. Pickett is a 62 yr old female with PMH of htn, hyperthyroid, fibro, afib, copd , chf; who was transferred to [facility] for resp failure. - Patient Problems (1) Acute and chronic respiratory failure Comment: - Hypercapnic and hypoxic, resolving - Requiring 3L and usually wears 2L at home - Refusing bipap at night (2) Acute diastolic (congestive) heart failure Comment: - Suspect edema due to CHF and steroids, plan to switch to prednisone and add furosemide IV x 1 - While in ICU diuresed 3 L with 80 IV lasix and symptoms improved - Echo showed new LVOT obstruction. Cardiology consulte - Daily weights (3) COPD (chronic obstructive pulmonary disease) Comment: - Cont nebs and supplemental O2 - On IV steriods, Solumedrol 40 IV Q 12 (4) Pneumonia Comment: - Afebrile, leukocytosis likely from steroids - Stop vanco and zosyn, complete course of antibiotics with azithromycin (5) CAD (coronary artery disease) Comment: - Prevous stress test revealed moderate to large area of reversible ischemia to anterolateral wall; declined cath and is medically managed - BB restarted at lower dose - ASA restarted (6) Atrial fibrillation with RVR Comment: - Rate controlled. - Continue diltiazem and metoprolol. - Anticoagulation contraindicated in setting of previous life-threatening lower GI bleed (7) Hyperthyroidism Comment: - Cont methimazole (8) HTN (hypertension) Comment: - SBP 140-170s - Increase to home metoprolol dose, continue cardizem, resume lisinopril (9) DVT prophylaxis Comment: - HSQ (10) Full code status Comment: Status and Disposition: Inpatient.
[2018-10-07] MEDS: Metoprolol Tartrate TAB* 25 MG PO SCH (20:43)
[2018-10-07] MEDS: Atorvastatin* 20 MG TAB PO SCH (20:44)
[2018-10-08] MEDS ORDERED: Furosemide IV* 10 MG/ML VIAL (40 MG) IV ONE (06:00)
[2018-10-08] MEDS: Insulin LISPRO* 1 UNITS UNIT SUBCUT SCH ×4 (07:46→20:18)
[2018-10-08] MEDS: Magnesium Hydroxide LIQ* 30 ML UDC PO SCH ×2 (07:47→20:25)
[2018-10-08] MEDS: Heparin VIAL(*) 5000 UNITS/ML VIAL (FIVE THOUSAND) SUBCUT SCH ×2 (07:47→20:27)
[2018-10-08] MEDS: Pantoprazole TAB * 40 MG TAB PO SCH (07:48)
[2018-10-08] MEDS: Lisinopril TAB* 5 MG PO SCH (07:48)
[2018-10-08] MEDS: Diltiazem CD CAP* 180 MG PO SCH (07:48)
[2018-10-08] MEDS: predniSONE TAB* 20 MG PO SCH (07:49)
[2018-10-08] MEDS: Aspirin 81 mg CHEW TAB* 81 MG TAB.CHEW PO SCH (07:49)
[2018-10-08] MEDS: Methimazole TAB* 5 MG PO SCH (07:49)
[2018-10-08] MEDS: Metoprolol Tartrate TAB* 25 MG PO SCH ×2 (07:49→20:25)
[2018-10-08] MEDS: Azithromycin TAB* 250 MG PO SCH (07:50)
[2018-10-08] MEDS: HYDROcodone/ACETAMIN 5-325 MG* 1 TAB PO PRN ×2 (07:50→20:26)
--- NOTE | 2018-10-08 13:14 | PN ---
Subjective Date of Service: 10/08/18 Interval History: Ms. Pickett reports that she is feeling tired but otherwise feeling well today. She confirms being on oxygen per routine at home. She denies chest pain or SOB today. She denies nausea or abdominal pain and is tolerating oral intake well. Objective Active Medications: Hydrocodone Bitart/Acetaminophen ([place] 5-325 Tab*) 1 tab PO Q3H PRN Albuterol (Ventolin 2.5 Mg/3 Ml Neb.Araceli*) 2.5 mg INH Q4H PRN Albuterol/Ipratropium (Duoneb (Albuterol 2.5 Mg/Ipratropium 0.5 Mg)) 1 neb INH [id number] AWAKE PRN Aspirin (Aspirin 81 Mg Chew Tab*) 81 mg PO DAILY [facility] Atorvastatin Calcium (Lipitor*) 20 mg PO 2100 [facility] Azithromycin (Zithromax Tab*) 250 mg PO DAILY [facility] Dextrose (D50w Syringe 50 Ml*) 12.5 gm IV PUSH .FOR FS < 60 - SS PRN Diltiazem HCl (Cardizem Cd Cap*) 180 mg PO DAILY [facility] Heparin Sodium (Porcine) (Heparin Vial(*)) 5,000 units SUBCUT Q12HR [facility] Insulin Human Lispro (Humalog*) 0 units SUBCUT FS [facility]CHS ICU [facility]; Protocol Lisinopril (Prinivil Tab*) 2.5 mg PO DAILY [facility] Magnesium Hydroxide (Milk Of Magnesia Liq*) 30 ml PO BID [facility] Methimazole (Tapazole Tab*) 10 mg PO DAILY [facility] Metoprolol Tartrate (Lopressor Tab*) 75 mg PO BID [facility] Pantoprazole Sodium (Protonix Tab (Nf)) 40 mg PO DAILY [facility] Prednisone (Deltasone Tab*) 40 mg PO DAILY [facility] Vital Signs: Temp Pulse Resp BP Pulse Ox 97.5 F 100 18 166/95 95 10/08/18 07:24 10/08/18 07:24 10/08/18 09:50 10/08/18 07:24 10/08/18 08:00 Oxygen Devices in Use Now: Nasal Cannula Appearance: Female lying in bed in NAD Eyes: No Scleral Icterus Neck: Trachea Midline Respiratory: Symmetrical Chest Expansion and Respiratory Effort, Clear to Auscultation Cardiovascular: NL Sounds; No Murmurs; No JVD, - - +1 edema to B LEs Abdominal: NL Sounds; No Tenderness; No Distention Skin: No Rash or Ulcers Neurological: Alert and Oriented x 3, NL Muscle Strength and Tone Nutrition: Taking PO's Result Diagrams: 10/07/18 06:33 10/07/18 06:33 Microbiology and Other Data: . Assess/Plan/Problems-Billing Assessment: Ms. Pickett is a 62 yr old female with PMH of htn, hyperthyroid, fibro, afib, copd , chf; who was transferred to [facility] for acute on chronic hypercarbic/ hypercapneic respiratory failure secondary COPD, pneumonia and acute on chronic diastolic CHF. - Patient Problems (1) Acute and chronic respiratory failure Comment: - Now back on home 2L NC - Hypercapnic and hypoxic on arrival - Refusing bipap at night (2) Acute diastolic (congestive) heart failure Comment: - Suspect edema due to CHF and steroids, continue prednisone taper and resume home furosemide - While in ICU diuresed 3 L with 80 IV lasix and symptoms improved - Echo showed new LVOT obstruction, reviewed with Jenae, thinks appears different from previous echo due to sepsis and hypovolemia, recommended limited echo to assess LV function in AM - Daily weights (3) COPD (chronic obstructive pulmonary disease) Comment: - Cont nebs and supplemental O2 - Continue prednisone taper (4) Pneumonia Comment: - Afebrile, leukocytosis likely from steroids - Stop vanco and zosyn, complete course of antibiotics with azithromycin (5) CAD (coronary artery disease) Comment: - Prevous stress test revealed moderate to large area of reversible ischemia to anterolateral wall; declined cath and is medically managed - BB restarted at lower dose - ASA restarted (6) Atrial fibrillation with RVR Comment: - Rate controlled. - Continue diltiazem and metoprolol. - Anticoagulation contraindicated in setting of previous life-threatening lower GI bleed (7) HTN (hypertension) Comment: - SBP 140-170s - Continue metoprolol, cardizem, and lisinopril. Home meds recently resumed, if BP not better by tomorrow, would recommend titrating med up or adding 4th agent. (8) Hyperthyroidism Comment: - Cont methimazole (9) DVT prophylaxis Comment: - HSQ (10) Full code status Comment: Status and Disposition: Inpatient. Patient hopes for discharge to [facility].
[2018-10-08] MEDS: Atorvastatin* 20 MG TAB PO SCH (20:25)
[2018-10-09] MEDS ORDERED: Vancomycin Trough Check NOTE FOLLOW UP ONE (05:30)
[2018-10-09 06:07] LABS: EGFR African American 115.1 (>60); EGFR Non-African American 95.1 (>60)
[2018-10-09 06:32] LABS: Vancomycin Trough 4.5 mcg/mL
[2018-10-09] MEDS: Insulin LISPRO* 1 UNITS UNIT SUBCUT SCH ×4 (07:40→19:51)
[2018-10-09] MEDS: Magnesium Hydroxide LIQ* 30 ML UDC PO SCH ×2 (07:57→19:49)
[2018-10-09] MEDS: Aspirin 81 mg CHEW TAB* 81 MG TAB.CHEW PO SCH (07:58)
[2018-10-09] MEDS: Metoprolol Tartrate TAB* 25 MG PO SCH ×2 (07:58→19:51)
[2018-10-09] MEDS: Furosemide TAB* 40 MG PO SCH (07:59)
[2018-10-09] MEDS: Lisinopril TAB* 5 MG PO SCH (08:03)
[2018-10-09] MEDS: Azithromycin TAB* 250 MG PO SCH (08:03)
[2018-10-09] MEDS: predniSONE TAB* 20 MG PO SCH (08:04)
[2018-10-09] MEDS: Diltiazem CD CAP* 180 MG PO SCH (08:04)
[2018-10-09] MEDS: HYDROcodone/ACETAMIN 5-325 MG* 1 TAB PO PRN ×2 (08:04→19:49)
[2018-10-09] MEDS: Pantoprazole TAB * 40 MG TAB PO SCH (08:04)
[2018-10-09] MEDS: Heparin VIAL(*) 5000 UNITS/ML VIAL (FIVE THOUSAND) SUBCUT SCH ×2 (08:05→19:51)
[2018-10-09] MEDS: Methimazole TAB* 5 MG PO SCH (08:05)
--- NOTE | 2018-10-09 08:34 | PN ---
Subjective Date of Service: 10/09/18 Interval History: HD#4 on 10/09/18 62 yr old female with PMH of htn, hyperthyroid, fibro, afib, copd, chf; who was transferred to [facility] for acute on chronic hypercarbic/hypercapneic respiratory failure secondary COPD, pneumonia and acute on chronic diastolic CHF. Hospital course c/b ? LVOT, pending repeat echo Overnight, no acute events. This morning report of BRBPR in bowl, H/H done and is stable, c/o hemmorhoids in the past. VS afebrile,normotensive, HR normal, satting 96% on 2L. This morning, getting echocardiograpm, no acute complaints reports feeling well. Tolerating diet. Working with PT. V Objective Active Medications: Hydrocodone Bitart/Acetaminophen ([place] 5-325 Tab*) 1 tab PO Q3H PRN PRN Reason: PAIN - MODERATE Last Admin: 10/09/18 08:04 Dose: 1 tab Albuterol (Ventolin 2.5 Mg/3 Ml Neb.Araceli*) 2.5 mg INH Q4H PRN PRN Reason: SOB/WHEEZING Albuterol/Ipratropium (Duoneb (Albuterol 2.5 Mg/Ipratropium 0.5 Mg)) 1 neb INH [id number] AWAKE PRN PRN Reason: SOB/WHEEZING Last Admin: 10/07/18 11:05 Dose: 1 neb Aspirin (Aspirin 81 Mg Chew Tab*) 81 mg PO DAILY [facility] Last Admin: 10/09/18 07:58 Dose: 81 mg Atorvastatin Calcium (Lipitor*) 20 mg PO 2100 [facility] Last Admin: 10/08/18 20:25 Dose: Not Given Azithromycin (Zithromax Tab*) 250 mg PO DAILY [facility] Last Admin: 10/09/18 08:03 Dose: 250 mg Dextrose (D50w Syringe 50 Ml*) 12.5 gm IV PUSH .FOR FS < 60 - SS PRN PRN Reason: FS < 60 Diltiazem HCl (Cardizem Cd Cap*) 180 mg PO DAILY [facility] Last Admin: 10/09/18 08:04 Dose: 180 mg Furosemide (Lasix Tab*) 40 mg PO DAILY [facility] Last Admin: 10/09/18 07:59 Dose: 40 mg Heparin Sodium (Porcine) (Heparin Vial(*)) 5,000 units SUBCUT Q12HR [facility] Last Admin: 10/09/18 08:05 Dose: Not Given Insulin Human Lispro (Humalog*) 0 units SUBCUT FS ACHS ICU [facility]; Protocol Last Admin: 10/09/18 07:40 Dose: Not Given Lisinopril (Prinivil Tab*) 2.5 mg PO DAILY [facility] Last Admin: 10/09/18 08:03 Dose: 2.5 mg Magnesium Hydroxide (Milk Of Magnesia Liq*) 30 ml PO BID [facility] Last Admin: 10/09/18 07:57 Dose: 30 ml Methimazole (Tapazole Tab*) 10 mg PO DAILY [facility] Last Admin: 10/09/18 08:05 Dose: 10 mg Metoprolol Tartrate (Lopressor Tab*) 75 mg PO BID [facility] Last Admin: 10/09/18 07:58 Dose: 75 mg Pantoprazole Sodium (Protonix Tab (Nf)) 40 mg PO DAILY [facility] Last Admin: 10/09/18 08:04 Dose: 40 mg Prednisone (Deltasone Tab*) 40 mg PO DAILY [facility] Last Admin: 10/09/18 08:04 Dose: 40 mg Vital Signs - 8 hr 10/09/18 10/09/18 10/09/18 03:09 04:48 07:36 Temperature 97.8 F 97.9 F Pulse Rate 80 86 97 Respiratory 16 20 17 Rate Blood Pressure 145/76 154/78 (mmHg) O2 Sat by Pulse 98 96 95 Oximetry 10/09/18 08:04 Temperature Pulse Rate Respiratory 18 Rate Blood Pressure (mmHg) O2 Sat by Pulse Oximetry Oxygen Devices in Use Now: Nasal Cannula Appearance: Well woman in NAD Eyes: No Scleral Icterus Ears/Nose/Mouth/Throat: NL Teeth, Lips, Gums, Mucous Membranes Moist Respiratory: Symmetrical Chest Expansion and Respiratory Effort, Clear to Auscultation Cardiovascular: NL Sounds; No Murmurs; No JVD, RRR Abdominal: NL Sounds; No Tenderness; No Distention Lymphatic: No Cervical Adenopathy Extremities: - - 1+ blt edema Skin: No Rash or Ulcers Neurological: Alert and Oriented x 3 Result Diagrams: 10/09/18 14:22 10/09/18 05:29 Microbiology and Other Data: . Diagnostic Imaging: Echo 10/09: LVH seen, EF 55-60%, no LVOT Assess/Plan/Problems-Billing Assessment: 62 yr old female with PMH of htn, hyperthyroid, fibro, afib, copd, HFpEF (EF 555 -60%) who was transferred to [facility] for acute on chronic hypercarbic/ hypercapneic respiratory failure secondary COPD, pneumonia and acute on chronic diastolic CHF. - Patient Problems (1) Acute and chronic respiratory failure Current Visit: Yes Status: Acute Code(s): J96.20 - ACUTE AND CHR RESP FAILURE, UNSP W HYPOXIA OR HYPERCAPNIA SNOMED Code(s): 14857611 Comment: - Now back on home 2L NC - Hypercapnic and hypoxic on arrival - Refusing bipap at night (2) Acute diastolic (congestive) heart failure Current Visit: No Status: Acute Code(s): I50.31 - ACUTE DIASTOLIC ( CONGESTIVE) HEART FAILURE SNOMED Code(s): 126090290 Comment: - Suspect edema due to CHF and steroids, continue prednisone taper and resume home furosemide - Pred at 40mg since 10/08, Day 2/5 on 10/09 - While in ICU diuresed 3 L with 80 IV lasix and symptoms improved - Echo showed new LVOT obstruction, reviewed with Jenae, thinks appears different from previous echo due to sepsis and hypovolemia, repeat Echo WNL today - Daily weights (3) Pneumonia Current Visit: Yes Status: Acute Code(s): J18.9 - PNEUMONIA, UNSPECIFIED ORGANISM SNOMED Code(s): 625689007 Comment: - Afebrile, leukocytosis likely from steroids - Stop vanco and zosyn, complete course of antibiotics with azithromycin Day 10/09 (4) COPD (chronic obstructive pulmonary disease) Current Visit: No Status: Acute Code(s): J44.9 - CHRONIC OBSTRUCTIVE PULMONARY DISEASE, UNSPECIFIED SNOMED Code(s): 96083333 Comment: - Cont nebs and supplemental O2 - Continue prednisone taper Day 2/5 on 10/09 (5) Atrial fibrillation with RVR Current Visit: No Status: Acute Code(s): I48.91 - UNSPECIFIED ATRIAL FIBRILLATION SNOMED Code(s): 245811559915187 Comment: - Rate controlled. - Continue diltiazem and metoprolol. - Anticoagulation contraindicated in setting of previous life-threatening lower GI bleed (6) Bright red blood per rectum Current Visit: Yes Status: Acute Code(s): K62.5 - HEMORRHAGE OF ANUS AND RECTUM SNOMED Code(s): 37728126 Comment: Hx of LGIB, on PPI -H/H stable, CTM (7) Hyperthyroidism Current Visit: Yes Status: Acute Code(s): E05.90 - THYROTOXICOSIS, UNSP WITHOUT THYROTOXIC CRISIS OR STORM SNOMED Code(s): 64994800 Comment: - Cont methimazole (8) CAD (coronary artery disease) Current Visit: Yes Status: Acute Code(s): I25.10 - ATHSCL HEART DISEASE OF [place] CORONARY ARTERY W/O ANG PCTRS SNOMED Code(s): 02984326 Comment: - Prevous stress test revealed moderate to large area of reversible ischemia to anterolateral wall; declined cath and is medically managed - BB restarted at lower dose - ASA restarted, watch with BRBPR (9) HTN (hypertension) Current Visit: No Status: Acute Code(s): I10 - ESSENTIAL (PRIMARY) HYPERTENSION SNOMED Code(s): 55660340 Comment: - SBP 120s - Continue metoprolol, cardizem, and lisinopril. (10) DVT prophylaxis Current Visit: No Status: Acute Code(s): PRD0127 - SNOMED Code(s): 662559775 Comment: - HSQ Status and Disposition: Inpatient. Patient hopes for discharge to [facility].
--- NOTE | 2018-10-09 10:31 | ECHO ---
Patient: DUANE BERGER [facility] Rec#: [id number] : 1955 Date: 10/09/2018 Age: 62y Height: 163 cm / 64.2 in Weight: 114 kg / 251.3 lbs Sex: F BSA: 2.16 Room#: 432 Admit Date#: 10/04/2018 Type: Inpatient Referring: Yeni Pal NP Reading: Trevor Roy MD Golf Cart Maker: Cheryl Cui RDCS,RDMS CC: Trey Hernandez DO Transthoracic Echocardiogram Indication: CHF BP: 145/76 HR: 91 Rhythm: NSR Findings History: LIMITED ECHO. AOV stenosis, cardiomegaly, HTN, COPD, morbid obesity, former smoker. Technical Comments: The study quality is fair. The study is technically limited due to poor parasternal windows. Left Ventricle: The left ventricular chamber size is normal. Moderate to severe concentric left ventricular hypertrophy is observed. Global left ventricular wall motion and contractility are within normal limits. The left ventricle appears hyperdynamic. The estimated ejection fraction is 55-60%. Right Ventricle: The right ventricular chamber size and systolic function are within normal limits. Aortic Valve: There is mild aortic regurgitation. The mean gradient of the aortic valve is 17 mmHg. The aortic valve area, by VTI's, is calculated at 1.5 cm2. Conclusions Moderate to severe concentric left ventricular hypertrophy is observed. Global left ventricular wall motion and contractility are within normal limits. The left ventricle appears hyperdynamic. The estimated ejection fraction is 55-60%. There is mild aortic regurgitation. The mean gradient of the aortic valve is 17 mmHg. No evidence of LVOT obstruction Compared to study of 10/04/18, the LV function is the same, the LVOT is not present. Aortic stenosis is better quantified Measurements Name Value Normal Range AV Vmax 2.7 m/sec - AV VTI 57 cm - AV peak gradient 30 mmHg - AV mean gradient 17 mmHg - LVOT diameter 2 cm - LVOT Vmax 1.1 m/sec - LVOT VTI 26 cm - LVOT peak gradient 5 mmHg - LVOT mean gradient 3 mmHg - DOI (VTI) 0.5 ratio - MARI (continuity Vmax) 1.3 cm2 - MARI (continuity VTI) 1.5 cm2 -
[2018-10-09 14:40] LABS: Hematocrit 34 % (35-47); Hemoglobin 10.8 g/dl (12.0-16.0)
[2018-10-09] MEDS: Atorvastatin* 20 MG TAB PO SCH (19:51)
--- NOTE | 2018-10-10 07:29 | PN ---
Subjective Date of Service: 10/10/18 Interval History: HD#5 on 10/10/18 62 yr old female with PMH of htn, hyperthyroid, fibro, afib, copd, chf; who was transferred to [facility] for acute on chronic hypercarbic/hypercapneic respiratory failure secondary COPD, pneumonia and acute on chronic diastolic CHF. Hospital course c/b ? LVOT, pending repeat echo Overnight, no acute events. Yesterday, report of BRBPR in bowl, H/H done and is stable, c/o hemmorhoids in the past. VS afebrile,BP 161-185/77-86, HR 70-80s, satting 96% on RA. This morning, no acute complaints feels well, awaiting bed for [facility]. ROS neg, tolerating diet. Objective Active Medications: Hydrocodone Bitart/Acetaminophen ([place] 5-325 Tab*) 1 tab PO Q3H PRN PRN Reason: PAIN - MODERATE Last Admin: 10/09/18 19:49 Dose: 1 tab Albuterol (Ventolin 2.5 Mg/3 Ml Neb.Araceli*) 2.5 mg INH Q4H PRN PRN Reason: SOB/WHEEZING Albuterol/Ipratropium (Duoneb (Albuterol 2.5 Mg/Ipratropium 0.5 Mg)) 1 neb INH [id number] AWAKE PRN PRN Reason: SOB/WHEEZING Last Admin: 10/07/18 11:05 Dose: 1 neb Aspirin (Aspirin 81 Mg Chew Tab*) 81 mg PO DAILY [facility] Last Admin: 10/09/18 07:58 Dose: 81 mg Atorvastatin Calcium (Lipitor*) 20 mg PO 2100 [facility] Last Admin: 10/09/18 19:51 Dose: Not Given Azithromycin (Zithromax Tab*) 250 mg PO DAILY [facility] Last Admin: 10/09/18 08:03 Dose: 250 mg Dextrose (D50w Syringe 50 Ml*) 12.5 gm IV PUSH .FOR FS < 60 - SS PRN PRN Reason: FS < 60 Diltiazem HCl (Cardizem Cd Cap*) 180 mg PO DAILY [facility] Last Admin: 10/09/18 08:04 Dose: 180 mg Furosemide (Lasix Tab*) 40 mg PO DAILY [facility] Last Admin: 10/09/18 07:59 Dose: 40 mg Heparin Sodium (Porcine) (Heparin Vial(*)) 5,000 units SUBCUT Q12HR [facility] Last Admin: 10/09/18 19:51 Dose: Not Given Insulin Human Lispro (Humalog*) 0 units SUBCUT FS ACHS ICU [facility]; Protocol Last Admin: 10/09/18 19:51 Dose: Not Given Lisinopril (Prinivil Tab*) 5 mg PO DAILY [facility] Magnesium Hydroxide (Milk Of Magnesia Liq*) 30 ml PO BID [facility] Last Admin: 10/09/18 19:49 Dose: 30 ml Methimazole (Tapazole Tab*) 10 mg PO DAILY [facility] Last Admin: 10/09/18 08:05 Dose: 10 mg Metoprolol Tartrate (Lopressor Tab*) 75 mg PO BID [facility] Last Admin: 10/09/18 19:51 Dose: 75 mg Pantoprazole Sodium (Protonix Tab (Nf)) 40 mg PO DAILY [facility] Last Admin: 10/09/18 08:04 Dose: 40 mg Prednisone (Deltasone Tab*) 40 mg PO DAILY [facility] Last Admin: 10/09/18 08:04 Dose: 40 mg Vital Signs - 8 hr 10/09/18 10/09/18 10/10/18 23:42 23:46 00:04 Temperature 97.9 F Pulse Rate 79 99 Respiratory 18 18 16 Rate Blood Pressure 162/78 (mmHg) O2 Sat by Pulse 93 96 Oximetry 10/10/18 10/10/18 03:26 06:43 Temperature 97.7 F 97.1 F Pulse Rate 79 89 Respiratory 18 17 Rate Blood Pressure 185/86 161/77 (mmHg) O2 Sat by Pulse 97 97 Oximetry Oxygen Devices in Use Now: Nasal Cannula Appearance: Well appearing woman in NAD Eyes: No Scleral Icterus, PERRLA Ears/Nose/Mouth/Throat: NL Teeth, Lips, Gums, Mucous Membranes Moist Neck: NL Appearance and Movements; NL JVP Respiratory: Symmetrical Chest Expansion and Respiratory Effort, Clear to Auscultation, - Cardiovascular: NL Sounds; No Murmurs; No JVD, RRR Abdominal: NL Sounds; No Tenderness; No Distention, No Hepatosplenomegaly Lymphatic: No Cervical Adenopathy Extremities: No Edema Skin: No Rash or Ulcers Neurological: Alert and Oriented x 3 Result Diagrams: 10/10/18 07:20 01/22/19 07:20 Microbiology and Other Data: . Diagnostic Imaging: Echo 10/09: LVH seen, EF 55-60%, no LVOT Assess/Plan/Problems-Billing Assessment: 62 yr old female with PMH of htn, hyperthyroid, fibro, afib, copd, HFpEF (EF 555 -60%) who was transferred from [facility] for acute on chronic hypercarbic/ hypercapneic respiratory failure secondary COPD, pneumonia and acute on chronic diastolic CHF. sx improved considerably thru stay, hospital course c/b, persitent BRBPR, thought to be internal hemmohrohids (no drop in H/H). Stable for d/c back to [place] - Patient Problems (1) Acute and chronic respiratory failure Current Visit: Yes Status: Acute Code(s): J96.20 - ACUTE AND CHR RESP FAILURE, UNSP W HYPOXIA OR HYPERCAPNIA SNOMED Code(s): 05253287 Comment: - Now back on home 2L NC - Hypercapnic and hypoxic on arrival - Refusing bipap at night, long discussion with her today to encourage - Bicarb elevating on BNP, start Acetazolamide 250mg daily to inmrpove resp drive (2) Acute diastolic (congestive) heart failure Current Visit: No Status: Acute Code(s): I50.31 - ACUTE DIASTOLIC ( CONGESTIVE) HEART FAILURE SNOMED Code(s): 716688058 Comment: - Suspect edema due to CHF and steroids, continue prednisone taper and resume home furosemide - Pred at 40mg since 10/08, Day 3/5 on 10/10 - While in ICU diuresed 3 L with 80 IV lasix and symptoms improved-now on home lasix - Echo showed new LVOT obstruction initialy, reviewed with Jenae, thinks appears different from previous echo due to sepsis and hypovolemia, repeat Echo WNL today - Daily weights (3) Pneumonia Current Visit: Yes Status: Acute Code(s): J18.9 - PNEUMONIA, UNSPECIFIED ORGANISM SNOMED Code(s): 169344823 Comment: - Afebrile, leukocytosis likely from steroids - Stop vanco and zosyn, complete course of antibiotics with azithromycin Day 10/10 (4) COPD (chronic obstructive pulmonary disease) Current Visit: No Status: Acute Code(s): J44.9 - CHRONIC OBSTRUCTIVE PULMONARY DISEASE, UNSPECIFIED SNOMED Code(s): 42118723 Comment: - Cont nebs and supplemental O2 - Continue prednisone taper Day 3/ on 10/10 (5) Atrial fibrillation with RVR Current Visit: No Status: Acute Code(s): I48.91 - UNSPECIFIED ATRIAL FIBRILLATION SNOMED Code(s): 364628720905592 Comment: - Rate controlled. - Continue diltiazem and metoprolol. - Anticoagulation contraindicated in setting of previous life-threatening lower GI bleed (6) Bright red blood per rectum Current Visit: Yes Status: Acute Code(s): K62.5 - HEMORRHAGE OF ANUS AND RECTUM SNOMED Code(s): 17564742 Comment: Hx of LGIB, on PPI -H/H stable, CTM (7) Hyperthyroidism Current Visit: Yes Status: Acute Code(s): E05.90 - THYROTOXICOSIS, UNSP WITHOUT THYROTOXIC CRISIS OR STORM SNOMED Code(s): 72694441 Comment: - Cont methimazole (8) CAD (coronary artery disease) Current Visit: Yes Status: Acute Code(s): I25.10 - ATHSCL HEART DISEASE OF [place] CORONARY ARTERY W/O ANG PCTRS SNOMED Code(s): 97580922 Comment: - Prevous stress test revealed moderate to large area of reversible ischemia to anterolateral wall; declined cath and is medically managed - BB restarted at lower dose - ASA restarted, watch with BRBPR (9) HTN (hypertension) Current Visit: No Status: Acute Code(s): I10 - ESSENTIAL (PRIMARY) HYPERTENSION SNOMED Code(s): 46984990 Comment: - SBP 120s - Continue metoprolol, cardizem, and lisinopril. Lisinopril increase to 5mg (10) DVT prophylaxis Current Visit: No Status: Acute Code(s): TBR5117 - SNOMED Code(s): 055599695 Comment: - HSQ Status and Disposition: Patient hopes for discharge to [facility].
[2018-10-10 07:34] LABS: ABS Basophils 0.1 10^3/ul (0-0.2); ABS Eosinophils 0.3 10^3/ul (0-0.6); ABS Neutrophils 8.5 10^3/ul (1.5-7.7); ABS Nucleated RBC 0 10^3/ul; Eosinophil % 2.3 %; Hematocrit 32 % (35-47); Hemoglobin 9.8 g/dl (12.0-16.0); Mean Corpuscular HGB Conc 31 g/dl (31-36); Mean Corpuscular Hemoglobin 26 pg (27-31); Mean Corpuscular Volume 85 fL (80-97); Mean Platelet Volume 7.8 fL (7.4-10.4); Nucleated Red Blood Cells % 0.1; Platelet Count 304 10^3/ul (150-450); Red Blood Count 3.73 10^6/ul (4.00-5.40); Red Cell Distribution Width 15 % (10.5-15)
[2018-10-10 07:49] LABS: BUN/Creatinine Ratio 39.3 (8-20); Calcium 8.7 mg/dL (8.6-10.3); EGFR African American 131.9 (>60); Potassium 4.8 mmol/L (3.5-5.0)
[2018-10-10] MEDS ORDERED: Lisinopril TAB* 5 MG PO SCH (09:00)
[2018-10-10] MEDS: Insulin LISPRO* 1 UNITS UNIT SUBCUT SCH ×2 (09:41→12:29)
[2018-10-10] MEDS: Pantoprazole TAB * 40 MG TAB PO SCH (09:42)
[2018-10-10] MEDS: Diltiazem CD CAP* 180 MG PO SCH (09:42)
[2018-10-10] MEDS: Furosemide TAB* 40 MG PO SCH (09:43)
[2018-10-10] MEDS: Azithromycin TAB* 250 MG PO SCH (09:43)
[2018-10-10] MEDS: Aspirin 81 mg CHEW TAB* 81 MG TAB.CHEW PO SCH (09:43)
[2018-10-10] MEDS: Metoprolol Tartrate TAB* 25 MG PO SCH (09:44)
[2018-10-10] MEDS: Magnesium Hydroxide LIQ* 30 ML UDC PO SCH (09:45)
[2018-10-10] MEDS: predniSONE TAB* 20 MG PO SCH (09:45)
[2018-10-10] MEDS: Heparin VIAL(*) 5000 UNITS/ML VIAL (FIVE THOUSAND) SUBCUT SCH (09:45)
[2018-10-10] MEDS: Methimazole TAB* 5 MG PO SCH (09:46)
[2018-10-10] MEDS: HYDROcodone/ACETAMIN 5-325 MG* 1 TAB PO PRN (09:53)
[2018-10-10] MEDS ORDERED: Hydrocortisone SUPP* 25 MG SUPP (2.5%) PR PRN (10:00)
[2018-10-10] MEDS ORDERED: acetaZOLAMIDE TAB* 250 MG PO SCH (11:00)
[2018-10-10 13:31] VITALS: BP 119/63
--- NOTE | 2018-10-10 13:37 | DS ---
CC: Dr. Trey Hernandez DATE OF ADMISSION: 10/04/2018. DATE OF DISCHARGE: 10/10/2018. PRIMARY DIAGNOSES: Hypercarbic hypoxemic respiratory failure, acute on chronic diastolic heart failu re, and COPD. SECONDARY DIAGNOSES: Hypertension, hyperthyroid, fibromyalgia, atrial fibrillation, severe COPD at [facility], heart failure with preserved ejection fraction with an EF of 55 to 60 percent. MEDICATIONS ON DISCHARGE: 1. Acetazolamide 250 mg p.o. daily, started 10/10/2018. 2. Albuterol nebs 2.5 mg inhaled q.4 hours prn for shortness of breath. 3. Albuterol Ipratropium nebs one neb inhaled q.4 hours prn for shortness of breath. 4. Aspirin 81 mg p.o. daily. 5. Atorvastatin 20 mg p.o. daily. 6. Diltiazem 180 mg p.o. daily. 7. Docusate 100 mg p.o. b.i.d. prn for constipation. 8. Ferrous Sulfate 325 mg p.o. daily. 9. Furosemide 40 mg p.o. daily. 10. Hydrocodone acetaminophen 5/325 one tab p.o. q.4 hours prn for severe pain, this is her home medi cation. 11. Hydrocortisone suppositories 25 mg per rectum b.i.d. prn for bright red blood per rectum. 12. Lisinopril 5 mg p.o. daily. 13. Methimazole 10 mg p.o. daily. 14. Metoprolol Tartrate 75 mg p.o. b.i.d. 15. Prednisone 40 mg p.o. daily to be continued an additional 3 days after discharge starting 019. Medication changes: Significant medication changes on this hospitalization were the addition of Acet azolamide 250 mg p.o. daily, started on October 10 to be continued for an additional five days afte r discharge and then to be determined whether to be continued long-term; Prednisone 40 mg p.o. daily to be continued three days additionally after discharge; Methimazole 10 mg p.o. daily, I did not see that she was on treatment for hyperthyroid, although this could have been an error in our medication reconciliation; Diltiazem 180 mg p.o. daily, this also could have been an error in our medication rec onciliation, I did not see that she was on this prior to this hospitalization; furthermore, Lisinopri l dosage was changed to 5 mg p.o. daily from 2.5 mg p.o. daily. HISTORY OF PRESENT ILLNESS/HOSPITAL COURSE: This is a 62-year-old female with the above past medical history who initially presented to [place] on 09/30/2018 for COPD, pneumonia, and heart failure. [facility] patient failed to respond to treatment and became progressive worse, and she was transferred to [facility] on 10/04/2018 in hypercarbic respiratory failure with a PCO2 of greater than 110. She was lethargi c on admission with stable vital signs, but required continuous BiPAP and was initially admitted to [facility] ICU. Her labs in the emergency room were notable for a leukocytosis of 14.8, an H and H of 10.1 a nd 32, and platelets were unremarkable. Her BMP was notable in the emergency room for bicarb of 37, b ut otherwise unremarkable. She was admitted to the ICU initially and was kept on continuous BiPAP. Her mentation continued to i mprove. She had an echocardiogram done in the ICU which was initially concerning. She has significa nt left ventricular hypertrophy which was unchanged. She had an ejection fraction at that time of 60 to 65 percent and there was notable diastolic dysfunction. There also was concern of outflow tract gradient or a left ventricular outflow tract obstruction. This was thought to be secondary to her vo lume overload at the time. She remained in ICU until transfer to the hospital floor on 10/07/2018. HOSPITAL COURSE BY PROBLEM WHILE MANAGED ON THE HOSPITAL FLOOR: 1. Hypercarbic hypoxemic respiratory failure: She was transferred off of BiPAP around the clock to BiPAP at bedtime. She continues to refuse BiPAP at night. With encouragement she will wear for two t o three hours at a time. We have had numerous long discussions with her about the importance of wear ing a BiPAP mask and she agrees to it at two to three hour spurts at night while lying down. She cur rently is requiring two liters nasal cannula which is her home requirement. Her respiratory failure was thought to be secondary to acute on chronic congestive heart failure as well as COPD exacerbation and possible pneumonia. 2. Acute on chronic heart failure with preserved ejection fraction as noted: She had an echocardiog erin done while in the ICU. A repeat echocardiogram was done on 10/08/2018 which showed resolution of the left ventricular outflow tract obstruction and return to baseline with an estimated ejection fra ction of 55 to 60 percent and notable left ventricular hypertrophy. She was diuresed aggressively at her initial hospitalization with 80 mg of IV Lasix up to t.i.d. She was transitioned to her home do se of 40 mg of Lasix on 10/08/2018 and has remained euvolemic on this dose until the day of discharge . 3. Pneumonia: She was admitted with a leukocytosis, but she remained afebrile. She was briefly cove red in the ICU with broad spectrum antibiotics of Vanco and Zosyn and then transferred on the floor t o Azithromycin. She completed a course of antibiotics with Azithromycin on 10/10/2018. 4. COPD: She was initially on IV steroids, then was transitioned to p.o. She continues on a Predni sone taper, currently day three of five on 10/10/2018 at Prednisone 40 mg as noted in above medicatio ns. 5. Atrial fibrillation: At baseline. Initially presented with mild RVR. She was rate controlled o n Diltiazem and Metoprolol and those medications are continued. Her anticoagulation is contraindicate d in the setting of a previous life threatening lower GI bleed. 6. Bright red blood per rectum: She has a history of a lower GI bleed and her hospital course was n oted for persistent bright red blood per rectum during stooling which was thought to be internal hemo rrhoids. Her H and H remained wholly stable throughout this hospitalization. She does have impressi ve streaks of blood on her stool and it does make the bowl look quite red, although I suspect the vol ume of blood loss during stooling is quite low. We started her on Anusol suppositories for symptomat ic relief. 7. Hyperthyroidism: We continued her on her home Methimazole. 8. CAD: She has a previous stress test that showed a moderate to large reversible ischemia in the a nterolateral wall. She declined a cath at that time and she is medically managed. She is on a beta pranay. She is on aspirin. She is on a statin. 9. Hypertension: She is on Metoprolol, Cardizem, and Lisinopril. Of note, her Lisinopril was incre ased to 5 mg. 10. Fibromyalgia: She is managed on her home chronic opiate pain medication. REVIEW OF SYSTEMS: Review of systems was done at the time of discharge and was negative for a ten po int review of systems. PHYSICAL EXAMINATION: Vital signs on the day of discharge are stable at blood pressure of 160/86 bef ore her a.m. blood pressure medications, temperature is 97.9, pulse is in the 80s, respiratory rate i s 18, oxygen saturation is 96 percent on two liters nasal cannula. Her physical exam on the day of d ischarge is notable for a well-appearing woman with a nasal cannula, in bed with clear to auscultatio n bilaterally lungs. Heart is actually regular rate and rhythm with no murmurs, rubs, or gallops. H er belly is soft, nontender, and nondistended. She has no edema. She has no cervical lymphadenopath y. She is alert and oriented times three. LABORATORY DATA: Her labs on the day of discharge are notable for a mild leukocytosis of 12, H and H of 9.8 and 32 from yesterday which was 10 and 32, and platelets of 304. Her BMP is notable for sodi um of 137, potassium of 4.8, chloride of 91, her bicarb is 45 which has been between 35 and 40 throug hout this hospitalization so does reflect an increase, her BUN is 22 and her creatinine is 0.56. Her imaging as noted prior. She had an echocardiogram. Her last echocardiogram was done 10/09/2018 with an ejection fraction of 55 to 60 percent with no left ventricular outflow tract obstruction. Microbiology on this hospitalization: She had a negative legionella antigen and a negative strep pne umo antigen. She had negative urine cultures and blood cultures and her flu was negative. FOLLOW-UP: The active problems to follow-up post this hospitalization are as follows: 1. Persistent hypercarbia: Her bicarb on the day of discharge on her BMP is 45. This is rising, but I believe is consistent with a chronic respiratory acidosis with metabolic compensation. We did sta rt Acetazolamide 250 mg p.o. daily today to help improve her respiratory drive. We have had numerous long conversations with her to encourage her to wear a BiPAP and educated her on the importance of t his. At [place], we would recommend that she continue to wear BiPAP, even for short trials at night and recommend daily BMP to watch for effects of Acetazolamide and determine if this should be a long- term medication or a temporary medication. 2. COPD: She is discharged on a Prednisone taper to be continued for three days after discharge, al though this can be decided at the providers discretion at [facility]. 3. Bright red blood per rectum: She has no evidence of a lower GI bleed in this hospitalization, al though she does have impressive streaking of bright red blood on her stool. Continue to offer suppor tive care for this. After discussion with the patient, she says that this is her baseline for a numb er of years. 4. There are no other active problems to follow-up on. Otherwise management per problem list as abo ve. Please do not hesitate to contact us if there are any questions about her plan of care while in the ospital. She has no further questions and is stable for transfer to [facility] which she very much wou ld like to do given it is closer to her primary care provider. TIME SPENT: Forty-five minutes were spent in the planning of this discharge with over half of that d one at the bedside of the patient. [id number]/CPS #: [id number]
== END 2018-10-10 13:53 | disposition swing bed (61) | DRG 720 ==
LOC: ICU 14:40 → MEDTELE 10-05 12:19
PROVIDERS: ADMIT Internal Medicine; ATTEND Internal Medicine
PROC: 5A09357 Assistance with Respiratory Ventilation, Less than 24 Consecutive Hours, Continuous Positive Airway Pressure (ICD-10-PCS; principal; 2018-10-04)
DX: A41.9 Sepsis, unspecified organism (principal); J96.22 Acute and chronic respiratory failure with hypercapnia; I50.33 Acute on chronic diastolic (congestive) heart failure; J18.9 Pneumonia, unspecified organism; J96.21 Acute and chronic respiratory failure with hypoxia; J44.0 Chronic obstructive pulmonary disease with (acute) lower respiratory infection; Z68.41 Body mass index [BMI] 40.0-44.9, adult; I11.0 Hypertensive heart disease with heart failure; M79.7 Fibromyalgia; K64.9 Unspecified hemorrhoids; I48.91 Unspecified atrial fibrillation; E05.90 Thyrotoxicosis, unspecified without thyrotoxic crisis or storm; I51.7 Cardiomegaly; K64.8 Other hemorrhoids; I25.10 Atherosclerotic heart disease of native coronary artery without angina pectoris; E66.9 Obesity, unspecified; Z79.82 Long term (current) use of aspirin; Z79.52 Long term (current) use of systemic steroids; Z99.81 Dependence on supplemental oxygen; Z90.89 Acquired absence of other organs; Z82.49 Family history of ischemic heart disease and other diseases of the circulatory system; Z87.891 Personal history of nicotine dependence
CPT/HCPCS: 36415; 36600; 71045; 80048; 80053; 80061; 80202; 81003; 81015; 82565; 82803; 83036; 83605; 83735; 83880; 84100; 84443; 84484; 84520; 85014; 85018; 85025; 85060; 85610; 85730; 87040; 87086; 87641; 87899; 93005; 93306; 93308; 94640; 94660; A9270-GY; G8978-GP-CJ; G8979-GP-CH; G8987-GO-CK; G8988-GO-CI; J1644; J1940; J2270; J2543; J2920; J3370; J7512

== ENCOUNTER 2019-09-26 09:31 | Inpatient (IN) | payer MEDICARE, MEDICAID ==
[2019-09-26] MEDS: Heparin VIAL(*) 5000 UNITS/ML VIAL (FIVE THOUSAND) SUBCUT SCH ×2 (14:48→21:58)
[2019-09-26] MEDS ORDERED: Digoxin IV* 0.5 MG/2 ML AMP (0.25 MG/ML) IV SLOW PU ONE (15:01)
[2019-09-26] MEDS ORDERED: Magnesium Hydroxide LIQ* 30 ML UDC PO PRN (15:06)
--- NOTE | 2019-09-26 16:14 | HP ---
CC: Dr. Hernandez * HISTORY AND PHYSICAL: DATE OF ADMISSION: 09/26/19 PRIMARY CARE PROVIDER: Dr. Hernandez. CHIEF COMPLAINT: Uncontrolled atrial fibrillation. HISTORY OF PRESENT ILLNESS: Ms. Pickett is a 63-year-old female with a history of O2- dependent COPD, morbid obesity, atrial fibrillation and hyperthyroidism, who was admitted to [facility] on 09/20/19 after presenting with complaints of progressive shortness of breath. The patient was ultimately treated for an acute exacerbation of COPD with acute on chronic hypoxic respiratory failure. During the course of her hospitalization, her respiratory status essentially got back to baseline; however, her heart rate became poorly controlled. She has known atrial fibrillation. On presentation, her heart rate was mildly tachycardic. Unfortunately, despite increasing her Cardizem orally to 360 mg daily, she did not have any improvement in her heart rate. She was unable to have an echocardiogram obtained. Because of the persistently uncontrolled atrial fibrillation and lack of cardiac support, the decision was made to transfer the patient to [facility]. Upon presentation to [facility] , the patient states that she is generally feeling okay. She does feel quite tired, however. She is also very hungry. She states her appetite is ravenous. She is not happy when I tell her that I am not going to give her caffeine at this point. She tells me she typically drinks 3 to 4 cups of coffee a day. She denies any shortness of breath while at rest; however, with ambulation she does become dyspneic. This is reportedly normal for her. She does not feel her heart racing. She denies any chest pain. She tells me that she has not had a good bowel movement in several days. PAST MEDICAL HISTORY: 1. Hyperthyroidism. 2. Atrial fibrillation. 3. Hypertension. 4. COPD - O2 dependent. PAST SURGICAL HISTORY: Appendectomy. MEDICATIONS: Accurate records were not obtained from [facility]. We are working on getting these faxed over now. She, however, was on metoprolol tartrate 50 mg twice daily and Cardizem CD 360 mg daily while at [facility]. ALLERGIES: Chamomile flower. FAMILY HISTORY: Both parents had heart disease later in life, both in their 80s. SOCIAL HISTORY: The patient has a 45-pack year history of smoking. She quit in 2013. She drinks alcohol rarely. She lives alone. Her daughter, Anna , is her surrogate decision maker. REVIEW OF SYSTEMS: A complete 11-system review of systems is obtained. Pertinent positives and negatives are as per HPI and otherwise negative. PHYSICAL EXAMINATION VITAL SIGNS: Blood pressure 119/81; pulse 122, though heart rate has ranged from 107 to 168 on telemetry. HEENT: Pupils are equal. Extraocular muscles intact. Oropharynx is clear and moist. The patient has poor dentition. NECK: I do not appreciate any cervical, submandibular, or supraclavicular adenopathy, though this is a difficult exam given the patient's obese neck. PULMONARY: Breath sounds are diminished throughout. I do not appreciate any crackles. CARDIAC: Normal S1, S2. Heart rate is irregularly irregular and tachycardic. There is 1+ bilateral lower extremity pitting edema. ABDOMEN: Bowel sounds are present. Abdomen is obese, soft, nontender, nondistended. MUSCULOSKELETAL: The patient moves all 4 extremities symmetrically. NEURO: Cranial nerves II through XII are grossly intact. Sensation is intact to light touch throughout. Strength is 5/5 and symmetric in both upper and lower extremities bilaterally. PSYCH: The patient is alert. She is oriented x3. Affect appears appropriate. SKIN: Visible areas of skin are warm, dry and without rash. DIAGNOSTIC STUDIES/LAB DATA: These were obtained at [facility]. Sodium 141, potassium 4.1, chloride 100, BUN 30, creatinine 0.7, glucose 88, calcium 8.2. TSH 1.39. WBC 13.49, hemoglobin 13.7, hematocrit 44.7, platelets 281. EKG from [facility] on admission in fact reveals the patient to be in sinus tachycardia. I will obtain a new EKG now. ASSESSMENT AND PLAN: Ms. Pickett is a 63-year-old female with a history of hypertension, atrial fibrillation, hyperthyroidism, O2 dependent chronic obstructive pulmonary disease and obesity, who presents to [facility] from [facility] for uncontrolled atrial fibrillation. 1. Atrial fibrillation with rapid ventricular response. At this point, the patient's heart rate has failed to come under control being on metoprolol tartrate 50 mg twice daily and Cardizem CD 360 mg daily. I am going to continue these 2 medications and I am going to administer digoxin 0.5 mg IV x1 now. I do believe that the patient will need a transthoracic echocardiogram. I am suspicious that the patient's heart rate may have been poorly controlled for quite some time. I do not believe that her hyperthyroidism is playing a role in this at this point as her TSH is normal. She does have mild lower extremity edema and this will need to be watched. 2. Oxygen dependent chronic obstructive pulmonary disease. At this point, the patient's respiratory status is back to baseline. I will be obtaining her medication regimen and we will get this ordered. She has completed antibiotic therapy with ceftriaxone. I do believe that she has been on steroids per sign out from the nurse practitioner at [facility]. Again, records are crucial to determining what medications the patient has been on. 3. Hypertension. Blood pressure as of the first check at [facility] was under good control. This is with an increased dose of digoxin. If her blood pressures are normal or low normal, increasing her beta-pranay may be problematic. 4. History of gastrointestinal bleed. It is because of history of recurrent gastrointestinal bleed, the patient is not on full anticoagulation for her atrial fibrillation. We will need to monitor this. 5. DVT prophylaxis: According to the Adult Thrombosis Prophylaxis Risk Factor Assessment Guide, the patient has a total risk factor score of 3, making her high risk. She will be placed on heparin 5000 units subcutaneous q.8 hours. 6. Code status is full. TIME SPENT: Sixty-five minutes was spent admitting this patient. [id number]/CPS #: [id number] KRISTINE
[2019-09-26] MEDS: Albuterol/Ipratropium NEB.SOL* Albuterol 2.5 MG/Ipratropium 0.5 MG 3 ML INH PRN (17:38)
[2019-09-26] MEDS: Polyethylene Glycol 3350* 17 GM PACKET PO SCH (17:54)
[2019-09-26] MEDS ORDERED: Metoprolol Tartrate IV* 1 MG/ML 5 ML VIAL IV PRN (19:24)
[2019-09-26] MEDS: HYDROcodone/ACETAMIN 5-325 MG* 1 TAB PO PRN (19:45)
[2019-09-26] MEDS: Metoprolol Tartrate TAB* 50 mg PO SCH (19:46)
[2019-09-26] MEDS: Acetaminophen TAB* 325 MG PO PRN (19:46)
[2019-09-27] MEDS: HYDROcodone/ACETAMIN 5-325 MG* 1 TAB PO PRN ×5 (00:25→21:47)
[2019-09-27] MEDS: Albuterol/Ipratropium NEB.SOL* Albuterol 2.5 MG/Ipratropium 0.5 MG 3 ML INH PRN ×3 (00:25→19:37)
[2019-09-27 05:51] LABS: ABS Eosinophils 0.2 10^3/ul (0-0.6); ABS Lymphocytes 1.9 10^3/ul (1.0-4.8); ABS Monocytes 1.1 10^3/ul (0-0.8); ABS Neutrophils 9.6 10^3/ul (1.5-7.7); Eosinophil % 1.4 %; Hematocrit 42 % (35-47); Hemoglobin 13.7 g/dL (12.0-16.0); Lymphocyte % 14.7 %; Mean Corpuscular HGB Conc 33 g/dL (31-36); Mean Corpuscular Hemoglobin 28 pg (27-31); Mean Corpuscular Volume 87 fL (80-97); Mean Platelet Volume 9.3 fL (7.4-10.4); Platelet Count 257 10^3/uL (150-450); Red Blood Count 4.83 10^6 /uL (3.70-4.87); Red Cell Distribution Width 14 % (10-15); White Blood Count 12.8 10^3/uL (3.5-10.8)
[2019-09-27] MEDS: Heparin VIAL(*) 5000 UNITS/ML VIAL (FIVE THOUSAND) SUBCUT SCH ×3 (06:03→21:50)
[2019-09-27 06:05] LABS: BUN/Creatinine Ratio 35.9 (8-20); Calcium 8.6 mg/dL (8.6-10.3); EGFR African American 112.7 (>60); EGFR Non-African American 93.1 (>60); Magnesium 2.3 mg/dL (1.9-2.7); Potassium 4.6 mmol/L (3.5-5.0)
[2019-09-27] MEDS ORDERED: Digoxin IV* 0.5 MG/2 ML AMP (0.25 MG/ML) IV SLOW PU ONE (07:20)
[2019-09-27] MEDS: Metoprolol Tartrate TAB* 50 mg PO SCH ×2 (08:55→21:48)
[2019-09-27] MEDS: Ferrous Sulfate TAB* 325 MG PO SCH (08:55)
[2019-09-27] MEDS: Furosemide TAB* 40 MG PO SCH (08:55)
[2019-09-27] MEDS: Diltiazem CD CAP* 180 MG PO SCH (08:56)
[2019-09-27] MEDS: Methimazole TAB* 5 MG PO SCH (08:56)
[2019-09-27] MEDS: Polyethylene Glycol 3350* 17 GM PACKET PO SCH (08:57)
--- NOTE | 2019-09-27 09:42 | ECHO ---
*[facility]* [place] [address] Fax #: [phone] Transthoracic Echocardiogram Patient: Sara Pickett : 1955 Study Date: 09/27/2019 Age: 63 Gender: F HR: 95 bpm Height: 64 in /162.6 cm BSA: 2.26 m^2 Weight: 280.4 lb /127.5 kg BMI: 48.2 kg/m^2 *Parking Line Painter: * Laurita Sams [facility] *Referring Physician: * Yady RaglandReading Physician: * Justin Phillips MD Indications: Atrial Fibrillation. History: Aortic stenosis. Chronic obstructive pulmonary disease. Risk factors: Former tobacco use (cigarettes). Hypertension. Morbidly obese. Conclusions Summary: - Left ventricle: The cavity size is normal. Wall thickness is moderately increased. Systolic function is normal. The estimated ejection fraction is 65-70%. Wall motion is normal; there are no regional wall motion abnormalities. - Right ventricle: The cavity size is mildly dilated. Systolic function is normal. - Left atrium: The atrium is severely dilated. - Aortic valve: The findings are consistent with mild stenosis. - Pulmonary arteries: Systolic pressure is mildly increased. - No significant valvular abnormalities noted. Recommendations: Compared to prior study from 09/2018, findings are similar. Study data: Transthoracic echocardiogram. Procedure: Transthoracic echocardiography was performed. Image quality was fair. Poor parasternal windows. Complete 2D, spectral Doppler, and color flow Doppler. Location: Bedside. Patient status: Inpatient. Patient room number: 442-01. Rhythm: Atrial fibrillation. Findings Left ventricle: The cavity size is normal. Wall thickness is moderately increased. Systolic function is normal. The estimated ejection fraction is 65-70%. Wall motion is normal; there are no regional wall motion abnormalities. Left ventricular diastolic function parameters are indeterminate. Right ventricle: The cavity size is mildly dilated. Systolic function is normal. Left atrium: The atrium is severely dilated. Right atrium: The atrium is mildly dilated. Mitral valve: The Mitral valve annulus appears mildly calcified. The leaflets are moderately thickened. There is no evidence of stenosis. There is trace to mild regurgitation. Aortic valve: The valve is trileaflet. The leaflets are mildly calcified. The findings are consistent with mild stenosis. There is trace regurgitation. Tricuspid valve: The leaflets are normal thickness. There is mild regurgitation. Pulmonic valve: Poorly visualized. The leaflets are normal thickness. There is no evidence of stenosis. There is trace regurgitation. Aorta: Aortic root: The aortic root is upper normal in size. Ascending aorta: The ascending aorta is mildly dilated. Aortic arch: The aortic arch is poorly visualized. Pericardium: A prominent pericardial fat pad is present. There is no significant pericardial effusion. Pulmonary arteries: Poorly visualized. Systolic pressure is mildly increased. Systemic veins: Inferior vena cava: The vessel is mildly dilated. There is (>= 50%) respiratory change in the IVC dimension. Measurements Left ventricle Value Ref Right atrium Value Ref KARAN, LAX 4.7 cm 3.8 - 5.2 SI dim, ES (H) 5.7 cm 3.4 - 5.3 ESD, LAX 3.2 cm 2.2 - 3.5 ML dim, ES, A4C 4.3 cm 2.6 - 4.4 FS, LAX 33 % - 45 Estimated RAP 8 mm Hg --------- PW, ED, LAX (H) 1.4 cm 0.6 - 0.9 FS 33 % 45 Aortic valve Value Ref PW, ED (H) 1.4 cm 0.6 - 0.9 Rupali diam, ED 2.2 cm --------- E', lat rupali, TDI (L) 7.5 cm/sec >=10.0 Peak v, S 2.8 m/sec --- ------ E/e', lat rupali, 18 VTI, S 44.8 cm ------ --- TDI Mean grad, S 17.0 mm Hg --------- E', med rupali, TDI (L) 6.0 cm/sec >=7.0 Peak grad, S 31.4 mm Hg --- ------ E/e', med rupali, 23 LVOT/AV, VTI ratio 0.47 ------ --- TDI MARI, VTI 1.62 cm^2 --------- E', avg, TDI 6.8 cm/sec MARI, Vmax 1.63 cm^2 ------ --- E/e', avg, TDI (H) 20 <=14 Mitral valve Value Ref LVOT Value Ref Peak E 1.36 m/sec --------- Diam, S 2.10 cm Decel time 222 ms --------- Area 3.5 cm^2 Peak grad, D 7.4 mm Hg --------- Peak boone, S 1.32 m/sec VTI, S 21.0 cm Pulmonic valve Value Ref Peak grad, S 7 mm Hg Peak v, S 0.99 m/sec --------- Mean grad, S 4 mm Hg Peak grad, S 4.0 mm Hg --------- SV 72 ml SV/bsa 32 ml/m^2 Tricuspid valve Value Ref TR peak v (H) 3.03 m/sec <=2.8 Ventricular septum Value Ref Peak RV-RA grad, S 37 mm Hg --------- IVS, ED (H) 1.5 cm 0.6 - 0.9 Aortic root Value Ref Right ventricle Value Ref Root diam 3.6 cm <4.3 AW thickness, ED (H) 1.0 cm 0.1 - 0.5 KARAN, LAX 4.1 cm Ascending aorta Value Ref KARAN minor ax, A4C (H) 3.7 cm 1.9 - 3.5 AAo diam (H) 3.8 cm 1.9 - 3.5 mid Pressure, S 45 mm Hg Pulmonary artery Value Ref Pressure, S 41.0 mm Hg --------- Left atrium Value Ref AP dim, ES (H) 4.50 cm 2.70 - Inferior vena cava Value Ref 3.80 Diam 2.4 cm --------- ML dim, A4C 5.5 cm SI dim, A4C 7.2 cm Vol/bsa, ES, 1-p (H) 46 ml/m^2 11 - 40 A4C Vol/bsa, ES, A/L (H) 51 ml/m^2 16 - 34 Legend: (L) and (H) olu values outside specified reference range. Prepared and electronically signed by Justin Phillips MD 09/27/2019 09:39
[2019-09-27] MEDS ORDERED: Magnesium CITRATE* 300 ML BTL PO ONE (12:00)
--- NOTE | 2019-09-27 12:05 | PN ---
Subjective Date of Service: 09/27/19 Interval History: Pt is feeling a little better today. She states her breathing is comfortable at rest and she is still SOB with exertion, this is baseline. She thinks her LE edema is further improved today. Objective Active Medications: Acetaminophen (Tylenol Tab*) 650 mg PO Q4H PRN PRN Reason: PAIN-MILD/TEMP >/= 100.4 Last Admin: 09/26/19 19:46 Dose: 650 mg Hydrocodone Bitart/Acetaminophen ([place] 5-325 Tab*) 1 tab PO Q4H PRN PRN Reason: Pain-moderate Last Admin: 09/27/19 10:56 Dose: 1 tab Albuterol/Ipratropium (Duoneb (Albuterol 2.5 Mg/Ipratropium 0.5 Mg)) 1 neb INH Q4H PRN PRN Reason: SOB/WHEEZING Last Admin: 09/27/19 09:57 Dose: 1 neb Diltiazem HCl (Cardizem Cd Cap*) 360 mg PO DAILY [facility] Last Admin: 09/27/19 08:56 Dose: 360 mg Ferrous Sulfate (Ferrous Sulfate Tab*) 325 mg PO DAILY [facility] Last Admin: 09/27/19 08:55 Dose: 325 mg Furosemide (Lasix Tab*) 40 mg PO DAILY [facility] Last Admin: 09/27/19 08:55 Dose: 40 mg Heparin Sodium (Porcine) (Heparin Vial(*)) 5,000 units SUBCUT Q8HR [facility] Last Admin: 09/27/19 06:03 Dose: Not Given Magnesium Hydroxide (Milk Of Magnesia Liq*) 30 ml PO Q6H PRN PRN Reason: CONSTIPATION Methimazole (Tapazole Tab*) 10 mg PO DAILY [facility] Last Admin: 09/27/19 08:56 Dose: 10 mg Metoprolol Tartrate (Lopressor Iv*) 5 mg IV Q4H PRN PRN Reason: HEART RATE/PULSE Metoprolol Tartrate (Lopressor Tab*) 75 mg PO Q12HR [facility] Polyethylene Glycol/Electrolytes (Miralax*) 17 gm PO DAILY [facility] Last Admin: 09/27/19 08:57 Dose: 17 gm Vital Signs - 8 hr 09/27/19 09/27/19 09/27/19 05:45 06:01 08:00 Temperature Pulse Rate Respiratory 18 16 20 Rate Blood Pressure (mmHg) O2 Sat by Pulse Oximetry 09/27/19 09/27/19 09/27/19 08:37 08:58 08:59 Temperature 97.3 F Pulse Rate 97 127 Respiratory 20 20 Rate Blood Pressure 158/92 (mmHg) O2 Sat by Pulse 98 Oximetry 09/27/19 10:56 Temperature Pulse Rate Respiratory 20 Rate Blood Pressure (mmHg) O2 Sat by Pulse Oximetry Oxygen Devices in Use Now: Nasal Cannula Appearance: Middle aged morbidly obese female sitting up in bed, NAD Eyes: No Scleral Icterus Ears/Nose/Mouth/Throat: Mucous Membranes Moist Respiratory: Symmetrical Chest Expansion and Respiratory Effort, Clear to Auscultation Cardiovascular: NL Sounds; No Murmurs; No JVD, - - HR irregularly irregular, mildly tachycardic, trace LE edema Abdominal: NL Sounds; No Tenderness; No Distention - obese Extremities: No Clubbing, Cyanosis Skin: No Nodules or Sclerosis Neurological: Alert and Oriented x 3 Result Diagrams: 09/27/19 05:06 09/29/19 05:41 Assess/Plan/Problems-Billing Ms Pickett is a 63 yo F who has a h/o afib, O2 dependent COPD, - Patient Problems (1) Atrial fibrillation with RVR Status: Acute Code(s): I48.91 - UNSPECIFIED ATRIAL FIBRILLATION SNOMED Code( s): 154278288683366 Comment: HR still not optimally controlled. Will request cardiology evalulation and in meantime, increase metoprolol to 75mg BID. No anticoagulation at baseline given the patient's prior life threatening GI bleed. (2) (HFpEF) heart failure with preserved ejection fraction Status: Acute Code(s): I50.30 - UNSPECIFIED DIASTOLIC (CONGESTIVE) HEART FAILURE SNOMED Code(s): 506232559 Comment: Worsened diastolic CHF likely secondary to rapid afib. Continue lasix . (3) DVT prophylaxis Status: Acute Code(s): SHD0005 - SNOMED Code(s): 886162723 Comment: SQ heparin (4) Full code status Status: Acute Code(s): Z78.9 - OTHER SPECIFIED HEALTH STATUS SNOMED Code(s) : 783064928 Comment:
--- NOTE | 2019-09-27 12:37 | CONSULT ---
Subjective Date of Service: 09/27/19 Interval History: Admission/[place] transfer Date: 09/26/2019 Date of consult: 09/27/2019 Service: Hospitalist, currently Dr. Ragland PCP Dr. Hernandez [employer] Information Clerk: Dr. Trevor Roy CC: shortness of breath reason for consult: Uncontrolled atrial fibrillation rates HISTORY OF PRESENT ILLNESS: Sara Pickett is a 63-year-old woman with history as below. She was admitted to [facility] 09/20/2019 with shortness of breath found with COPD exacerbation. She developed rapid atrial fibrillation during admission that was difficult to control. She is approaching her baseline breathing status currently (dyspnea on limited activity, not at rest). She has had edema with her usual diuretic held. She has no chest discomfort, palpitations or syncope. Her rate control medications have been adjusted and heart rate has improved, she received a total of 750 mcg IV digoxin Pmhx: O2- dependent COPD HFpEF morbid obesity paroxysmal atrial fibrillation with history of GI bleed in 2015 and 2016 not on anticoagulation hyperthyroidism Suspected myocardial ischemia as per Dr. Roy 01/2018 consult note with moderate anterior wall ischemia being managed medically PAST SURGICAL HISTORY: Appendectomy. ALLERGIES: Chamomile flower FAMILY HISTORY: Both parents had heart disease later in life, both in their 80s. SOCIAL HISTORY: The patient has a 45-pack year history of smoking. She quit in 2013. She drinks alcohol rarely. She lives alone. Her daughter, Anna, is her surrogate decision maker. Medications Active Medications: Acetaminophen (Tylenol Tab*) 650 mg PO Q4H PRN PRN Reason: PAIN-MILD/TEMP >/= 100.4 Last Admin: 09/26/19 19:46 Dose: 650 mg Hydrocodone Bitart/Acetaminophen ([place] 5-325 Tab*) 1 tab PO Q4H PRN PRN Reason: Pain-moderate Last Admin: 09/27/19 10:56 Dose: 1 tab Albuterol/Ipratropium (Duoneb (Albuterol 2.5 Mg/Ipratropium 0.5 Mg)) 1 neb INH Q4H PRN PRN Reason: SOB/WHEEZING Last Admin: 09/27/19 09:57 Dose: 1 neb Diltiazem HCl (Cardizem Cd Cap*) 360 mg PO DAILY [facility] Last Admin: 09/27/19 08:56 Dose: 360 mg Ferrous Sulfate (Ferrous Sulfate Tab*) 325 mg PO DAILY [facility] Last Admin: 09/27/19 08:55 Dose: 325 mg Furosemide (Lasix Tab*) 40 mg PO DAILY [facility] Last Admin: 09/27/19 08:55 Dose: 40 mg Heparin Sodium (Porcine) (Heparin Vial(*)) 5,000 units SUBCUT Q8HR [facility] Last Admin: 09/27/19 06:03 Dose: Not Given Magnesium Hydroxide (Milk Of Magnesia Liq*) 30 ml PO Q6H PRN PRN Reason: CONSTIPATION Methimazole (Tapazole Tab*) 10 mg PO DAILY [facility] Last Admin: 09/27/19 08:56 Dose: 10 mg Metoprolol Tartrate (Lopressor Iv*) 5 mg IV Q4H PRN PRN Reason: HEART RATE/PULSE Metoprolol Tartrate (Lopressor Tab*) 75 mg PO Q12HR [facility] Polyethylene Glycol/Electrolytes (Miralax*) 17 gm PO DAILY [facility] Last Admin: 09/27/19 08:57 Dose: 17 gm Home Medications: Aspirin 81 mg CHEW TAB* 81 mg PO DAILY #30 tab.chew 01/24/18 [Rx Confirmed 09/27] Docusate CAP* [Colace Cap*] 100 mg PO BID #60 cap 01/24/18 [Rx Confirmed ] Ferrous Sulfate TAB* 325 mg PO DAILY #30 tab 01/24/18 [Rx Confirmed 09/27/19] Furosemide TAB* [Lasix TAB*] 40 mg PO DAILY #30 tab 01/24/18 [Rx Confirmed 09/27] HYDROcodone/ACETAMIN 5-325 MG* [[place] 5-325 TAB*] 1 tab PO Q4H PRN #18 tab MDD 6 tabs 01/24/18 [Rx Confirmed 09/27/19] Albuterol 2.5MG/3ML (0.083%)* [Ventolin 2.5 MG/3 ML NEB.ROSEMARY*] 2.5 mg INH Q4H PRN neb.soln 10/10/18 [Rx Confirmed 09/27/19] Albuterol/Ipratropium NEB.ROSEMARY* [Duoneb (Albuterol 2.5 MG/Ipratropium 0.5 MG)] 1 neb INH [id number] AWAKE PRN neb.soln 10/10/18 [Rx Confirmed 09/27/19] Diltiazem CD CAP* [Cardizem CD CAP*] 180 mg PO DAILY cap.cd 10/10/18 [Rx Confirmed 09/27/19] Hydrocortisone SUPP* [Anusol Hc Supp*] 25 mg DC BID PRN supp 10/10/18 [Rx Confirmed 09/27/19] acetaZOLAMIDE TAB* [Diamox Tab*] 250 mg PO DAILY #0 tab 10/10/18 [Rx Confirmed 09/27/19] predniSONE 20 mg TAB [Deltasone 20 MG TAB*] 40 mg PO DAILY tab 10/10/18 [Rx Confirmed 09/26/19] Methimazole TAB* [Tapazole TAB*] 2 tab PO DAILY 09/26/19 [History Confirmed 06/08] Metoprolol Tartrate TAB* [Lopressor TAB*] 50 mg PO BID 09/27/19 [History Confirmed 09/27/19] Review of Systems - Measurements Intake and Output: Intake and Output Last 24 Hours 09/25/19 09/26/19 09/27/19 09/28/19 06:59 06:59 06:59 06:59 Intake Total 750 Balance 750 Weight 281 lb 4.8 oz Intake: Oral 750 Other: Estimated Void Medium # Voids 1 - Review of Systems Constitutional Symptoms: Negative: Weight Gain, Weight Loss, Fever, Night Sweats Dermatology: Negative: Rash, Skin Lesions HEENT: Positive: Other Negative: Change in Hearing, Vertigo Eyes: Negative: Change in Vision, Double Vision Thyroid: Positive: Primary Hyperthyroidism Negative: Weight Loss, Weight Gain Pulmonary: Positive: Shortness of Breath, COPD, Exercise Intolerance, Home Oxygen Negative: Hemoptysis, Asthma Cardiology: Positive: Shortness of Breath, Swelling of Ankles, Edema Negative: Chest Pain, Palpitations, Peripheral Vascular Dis, Syncope, Claudication, Paroxysmal Nocturnal Dyspnea, Orthopnea Gastroenterology: Negative: Blood in Stools, Haematemesis, Melena Genital - Urinary: Negative: Dysuria, Hematuria, Nocturia Musculoskeletal: Negative: Joint Deformities, Kyphoscoliosis Endocrinology: Positive: Obesity Negative: Polydipsia, Polyuria Hematologic/Lymphatic: Positive: Use of Antiplatelet Drugs Negative: Use of Anticoagulant Neurology: Negative: Change in Speech, Change in Walking, Hx of Stroke\TIA Psychiatry: Negative: Unusual Anxiety, Suicidal Ideation Allergic/Immunologic: Negative: Hx HIV, Immunocompromise Review of Systems Statement: All other review of systems negative, unless stated above. Objective Vital Signs: Temp Pulse Resp BP Pulse Ox 97.3 F 127 20 158/92 98 09/27/19 08:37 09/27/19 08:58 09/27/19 10:56 09/27/19 08:37 09/27/19 08:37 Oxygen Devices in Use Now: Nasal Cannula Appearance: nad, pleasant Ears/Nose/Mouth/Throat: Clear Oropharnyx, Mucous Membranes Moist Neck: Trachea Midline, - - uncertain jvp Respiratory: Symmetrical Chest Expansion and Respiratory Effort, Clear to Auscultation Cardiovascular: - - irregularly irregular, 1/6 systolic murmur Abdominal: NL Sounds; No Tenderness; No Distention, - - obese Extremities: No Clubbing, Cyanosis, - - 1+ edema Skin: No Rash or Ulcers Neurological: Alert and Oriented x 3 Laboratory Results: 09/27/19 05:06 09/27/19 05:06 Diagnostic Imaging: Transthoracic Echocardiogram Study Date: 09/27/2019 Conclusions Summary: - Left ventricle: The cavity size is normal. Wall thickness is moderately increased. Systolic function is normal. The estimated ejection fraction is 65-70%. Wall motion is normal; there are no regional wall motion abnormalities. - Right ventricle: The cavity size is mildly dilated. Systolic function is normal. - Left atrium: The atrium is severely dilated. - Aortic valve: The findings are consistent with mild stenosis. - Pulmonary arteries: Systolic pressure is mildly increased. - No significant valvular abnormalities noted. Recommendations: Compared to prior study from 09/2018, findings are similar. EKG Data: ekg 10/04/2018 sinus tachycardia, pac ekg 09/26/2019: Rapid afib 130 bpm currently appears aflutter on telemetry HR's 90's-100's since last evening mostly Assessment/Plan 1. Uncontrolled atrial fibrillation paroxysmal - Not on anticoagulation due to GI bleed - Likely largely secondary to # 2 2. Obesity 3. HFpEF 4. Presumed ischemic heart disease 5. Hyperthyroidism - consider changing albuterol to xopenex - Continue COPD treatment which can help with HR controls - Hyperthyroidism management per Primary service - Restart aspirin 81 mg po daily (ordered) - Continue diltiazem and metoprolol at current dosing - Can hold on further digoxin for now - Do not need overaggressive HR control in the short term as over next few weeks as continues to recover HR should improve as well. - Would reconcile home meds and start a statin if not previously on one - Patient should follow up with Dr. Roy after discharged Thank you for allowing me to participate in the cardiovascular care of this patient. Please do not hesitate to contact me with questions or concerns. +
[2019-09-27] MEDS: Acetaminophen TAB* 325 MG PO PRN (19:42)
[2019-09-27] MEDS ORDERED: Sodium Phosphate ADULT ENEMA* 118 ml bottle PR PRN (23:08)
[2019-09-27] MEDS ORDERED: Polyethylene Glycol 3350* 17 GM PACKET PO PRN (23:08)
[2019-09-27] MEDS ORDERED: Magnesium Hydroxide LIQ* 30 ML UDC PO PRN (23:08)
[2019-09-27] MEDS ORDERED: Senna TAB 8.6 mg* TAB PO PRN (23:08)
[2019-09-28] MEDS: HYDROcodone/ACETAMIN 5-325 MG* 1 TAB PO PRN ×5 (05:05→21:33)
[2019-09-28] MEDS: Albuterol/Ipratropium NEB.SOL* Albuterol 2.5 MG/Ipratropium 0.5 MG 3 ML INH PRN ×3 (05:06→13:23)
[2019-09-28] MEDS: Heparin VIAL(*) 5000 UNITS/ML VIAL (FIVE THOUSAND) SUBCUT SCH ×3 (05:10→20:32)
[2019-09-28] MEDS: Metoprolol Tartrate TAB* 50 mg PO SCH ×2 (09:31→20:30)
[2019-09-28] MEDS: Diltiazem CD CAP* 180 MG PO SCH (09:31)
[2019-09-28] MEDS: Docusate CAP* 100 MG PO SCH ×2 (09:32→20:30)
[2019-09-28] MEDS: Aspirin EC TAB* 81 MG TAB.EC PO SCH (09:32)
[2019-09-28] MEDS: Ferrous Sulfate TAB* 325 MG PO SCH (09:32)
[2019-09-28] MEDS: Methimazole TAB* 5 MG PO SCH (09:33)
[2019-09-28] MEDS: Magnesium Hydroxide LIQ* 30 ML UDC PO SCH ×2 (09:33→20:31)
[2019-09-28] MEDS: Furosemide TAB* 40 MG PO SCH (09:33)
--- NOTE | 2019-09-28 11:25 | PN ---
Subjective Date of Service: 09/28/19 Interval History: f/u atrial fibrillation patients breathing better today, wants to go home legs more edematous than usual no chest discomfort spontaneously converted to sinus rhythm Medications Active Medications: Acetaminophen (Tylenol Tab*) 650 mg PO Q4H PRN PRN Reason: PAIN-MILD/TEMP >/= 100.4 Last Admin: 09/27/19 19:42 Dose: 650 mg Hydrocodone Bitart/Acetaminophen ([place] 5-325 Tab*) 1 tab PO Q4H PRN PRN Reason: Pain-moderate Last Admin: 09/28/19 09:32 Dose: 1 tab Albuterol/Ipratropium (Duoneb (Albuterol 2.5 Mg/Ipratropium 0.5 Mg)) 1 neb INH Q4H PRN PRN Reason: SOB/WHEEZING Last Admin: 09/28/19 08:30 Dose: 1 neb Aspirin (Aspirin Ec Tab*) 81 mg PO DAILY [facility] Last Admin: 09/28/19 09:32 Dose: 81 mg Diltiazem HCl (Cardizem Cd Cap*) 360 mg PO DAILY [facility] Last Admin: 09/28/19 09:31 Dose: 360 mg Docusate Sodium (Colace Cap*) 100 mg PO BID [facility] Last Admin: 09/28/19 09:32 Dose: 100 mg Ferrous Sulfate (Ferrous Sulfate Tab*) 325 mg PO DAILY [facility] Last Admin: 09/28/19 09:32 Dose: 325 mg Furosemide (Lasix Tab*) 40 mg PO DAILY [facility] Last Admin: 09/28/19 09:33 Dose: 40 mg Heparin Sodium (Porcine) (Heparin Vial(*)) 5,000 units SUBCUT Q8HR [facility] Last Admin: 09/28/19 05:10 Dose: Not Given Magnesium Hydroxide (Milk Of Magnesia Liq*) 30 ml PO BID [facility] Last Admin: 09/28/19 09:33 Dose: 30 ml Magnesium Hydroxide (Milk Of Magnesia Liq*) 30 ml PO BID PRN PRN Reason: CONSTIPATION Methimazole (Tapazole Tab*) 10 mg PO DAILY [facility] Last Admin: 09/28/19 09:33 Dose: 10 mg Metoprolol Tartrate (Lopressor Iv*) 5 mg IV Q4H PRN PRN Reason: HEART RATE/PULSE Metoprolol Tartrate (Lopressor Tab*) 75 mg PO Q12HR [facility] Last Admin: 09/28/19 09:31 Dose: 75 mg Polyethylene Glycol/Electrolytes (Miralax*) 17 gm PO DAILY PRN PRN Reason: CONSTIPATION Prednisone (Deltasone 20 Mg Tab) 20 mg PO DAILY [facility] Last Admin: 09/28/19 09:33 Dose: 20 mg Senna (Senokot 8.6 Mg Tab*) 1 tab PO BEDTIME PRN PRN Reason: CONSTIPATION Sodium Biphosphate/Sodium Phosphate (Fleet Enema*) 1 bottle PA DAILY PRN PRN Reason: CONSTIPATION Last Admin: 09/28/19 05:28 Dose: 1 bottle Objective Vital Signs: Temp Pulse Resp BP Pulse Ox 97.6 F 104 20 154/70 99 09/28/19 07:33 09/28/19 08:31 09/28/19 09:32 09/28/19 09:30 09/28/19 08:31 Oxygen Devices in Use Now: Nasal Cannula Appearance: nad, pleasant Ears/Nose/Mouth/Throat: Clear Oropharnyx, Mucous Membranes Moist Neck: Trachea Midline, - - uncertain jvp Respiratory: Symmetrical Chest Expansion and Respiratory Effort, Clear to Auscultation Cardiovascular: RRR, - - 1/6 systolic murmur Abdominal: NL Sounds; No Tenderness; No Distention, - - obese Extremities: No Clubbing, Cyanosis, - - 1+ edema Skin: No Rash or Ulcers Neurological: Alert and Oriented x 3 Laboratory Results: 09/27/19 05:06 09/27/19 05:06 10/04/2018 tri 109, tchl 169, ldl 116, hdl 31 Diagnostic Imaging: Transthoracic Echocardiogram Study Date: 09/27/2019 Conclusions Summary: - Left ventricle: The cavity size is normal. Wall thickness is moderately increased. Systolic function is normal. The estimated ejection fraction is 65-70%. Wall motion is normal; there are no regional wall motion abnormalities. - Right ventricle: The cavity size is mildly dilated. Systolic function is normal. - Left atrium: The atrium is severely dilated. - Aortic valve: The findings are consistent with mild stenosis. - Pulmonary arteries: Systolic pressure is mildly increased. - No significant valvular abnormalities noted. Recommendations: Compared to prior study from 09/2018, findings are similar. EKG Data: ekg 10/04/2018 sinus tachycardia, pac ekg 09/26/2019: Rapid afib 130 bpm currently appears aflutter on telemetry HR's 90's-100's since last evening mostly Assessment/Plan Patient admitted COPD exacerbation 1. atrial fibrillation paroxysmal - Not on anticoagulation due to GI bleed - On aspirin currently 2. Obesity 3. HFpEF 4. Presumed ischemic heart disease 5. Hyperthyroidism - management per Primary service - Continue diltiazem and metoprolol (decrease metoprolol to 50 mg po bid - ordered) to help rate control future episodes - Would recommend to start a statin, lipitor 20 mg po daily to start with and uptitrate as tolerated as an outpatient. Will sign off, please reconsult as needed
[2019-09-28] MEDS ORDERED: Furosemide TAB* 20 MG PO ONE (13:22)
--- NOTE | 2019-09-28 13:28 | PN ---
Subjective Date of Service: 09/28/19 Interval History: Patient's heart feels better today, better than a long time. No palpitations. She converted to NSR earlier this morning. Dyspnea persists, some AUGUST. On 2 liters NC chronically at home. Does not feels at baseline. Neck pain recurs after 3 hrs, but pain medications available q4. Family History: Unchanged from Admission Social History: Unchanged from Admission Past Medical History: Unchanged from Admission Objective Active Medications: Acetaminophen (Tylenol Tab*) 650 mg PO Q4H PRN PRN Reason: PAIN-MILD/TEMP >/= 100.4 Last Admin: 09/27/19 19:42 Dose: 650 mg Hydrocodone Bitart/Acetaminophen ([place] 5-325 Tab*) 1 tab PO Q4H PRN PRN Reason: Pain-moderate Last Admin: 09/28/19 13:12 Dose: 1 tab Albuterol/Ipratropium (Duoneb (Albuterol 2.5 Mg/Ipratropium 0.5 Mg)) 1 neb INH Q4H PRN PRN Reason: SOB/WHEEZING Last Admin: 09/28/19 08:30 Dose: 1 neb Aspirin (Aspirin Ec Tab*) 81 mg PO DAILY [facility] Last Admin: 09/28/19 09:32 Dose: 81 mg Diltiazem HCl (Cardizem Cd Cap*) 360 mg PO DAILY [facility] Last Admin: 09/28/19 09:31 Dose: 360 mg Docusate Sodium (Colace Cap*) 100 mg PO BID [facility] Last Admin: 09/28/19 09:32 Dose: 100 mg Ferrous Sulfate (Ferrous Sulfate Tab*) 325 mg PO DAILY [facility] Last Admin: 09/28/19 09:32 Dose: 325 mg Furosemide (Lasix Tab*) 40 mg PO DAILY [facility] Last Admin: 09/28/19 09:33 Dose: 40 mg Heparin Sodium (Porcine) (Heparin Vial(*)) 5,000 units SUBCUT Q8HR [facility] Last Admin: 09/28/19 05:10 Dose: Not Given Magnesium Hydroxide (Milk Of Magnesia Liq*) 30 ml PO BID [facility] Last Admin: 09/28/19 09:33 Dose: 30 ml Magnesium Hydroxide (Milk Of Magnesia Liq*) 30 ml PO BID PRN PRN Reason: CONSTIPATION Methimazole (Tapazole Tab*) 10 mg PO DAILY [facility] Last Admin: 09/28/19 09:33 Dose: 10 mg Metoprolol Tartrate (Lopressor Iv*) 5 mg IV Q4H PRN PRN Reason: HEART RATE/PULSE Metoprolol Tartrate (Lopressor Tab*) 50 mg PO Q12HR [facility] Polyethylene Glycol/Electrolytes (Miralax*) 17 gm PO DAILY PRN PRN Reason: CONSTIPATION Prednisone (Deltasone 20 Mg Tab) 20 mg PO DAILY [facility] Last Admin: 09/28/19 09:33 Dose: 20 mg Senna (Senokot 8.6 Mg Tab*) 1 tab PO BEDTIME PRN PRN Reason: CONSTIPATION Sodium Biphosphate/Sodium Phosphate (Fleet Enema*) 1 bottle [place] DAILY PRN PRN Reason: CONSTIPATION Last Admin: 09/28/19 05:28 Dose: 1 bottle Vital Signs - 8 hr 09/28/19 09/28/19 09/28/19 07:33 08:00 08:31 Temperature 36.4 C Pulse Rate 86 104 Respiratory 18 20 16 Rate Blood Pressure 113/57 (mmHg) O2 Sat by Pulse 97 99 Oximetry 09/28/19 09/28/19 09/28/19 09:30 09:32 13:12 Temperature Pulse Rate Respiratory 20 20 Rate Blood Pressure 154/70 (mmHg) O2 Sat by Pulse Oximetry Oxygen Devices in Use Now: Nasal Cannula Appearance: alert, no distress Ears/Nose/Mouth/Throat: Clear Oropharnyx Neck: No Thyroid Enlargement, Masses Respiratory: - - diminished throughout, few wheezes Cardiovascular: NL Sounds; No Murmurs; No JVD, RRR, - - 1+ pitting edema bilat LE Lymphatic: No Cervical Adenopathy Skin: No Rash or Ulcers Neurological: Alert and Oriented x 3 Lines/Tubes/Other Access: Clean, Dry and Intact Peripheral IV Nutrition: Taking PO's Result Diagrams: 09/27/19 05:06 09/27/19 05:06 EKG Data: EKG: NSR documented Assess/Plan/Problems-Billing Ms Pickett is a 63 yo F who has a h/o afib, O2 dependent COPD, here with COPD exacerbation, RVR - Patient Problems (1) Atrial fibrillation with RVR Current Visit: Yes Status: Acute Priority: High Code(s): I48.91 - UNSPECIFIED ATRIAL FIBRILLATION SNOMED Code(s): 300915106194690 Comment: - Converted to NSR today w/o DC cardioversion - Continue oral diltiazem and adjustment to metoprolol per Dr. Phillips - Anticoagulation contraindicated in setting of previous life-threatening lower GI bleed (2) (HFpEF) heart failure with preserved ejection fraction Current Visit: Yes Status: Acute Priority: Medium Code(s): I50.30 - UNSPECIFIED DIASTOLIC (CONGESTIVE) HEART FAILURE SNOMED Code(s): 493415785 Comment: -Likely has edema due to diastolic dysfunction, worsened by rapid HR. -Will give additional dose lasix to treat edema. -Added Lipitor per Dr. Phillips (3) COPD (chronic obstructive pulmonary disease) Current Visit: Yes Status: Acute Priority: Medium Code(s): J44.9 - CHRONIC OBSTRUCTIVE PULMONARY DISEASE, UNSPECIFIED SNOMED Code(s): 68578841 Comment: - Cont nebs and supplemental O2 - Continue prednisone orally - Not at baseline, but improving (4) DVT prophylaxis Current Visit: Yes Status: Acute Priority: Low Code(s): TLH9999 - SNOMED Code(s): 082332874 Comment: - HSQ Status and Disposition: likely discharge tomorrow
[2019-09-28] MEDS ORDERED: Atorvastatin* 20 MG TAB PO SCH (17:00)
[2019-09-28] MEDS: Albuterol/Ipratropium NEB.SOL* Albuterol 2.5 MG/Ipratropium 0.5 MG 3 ML INH SCH (18:38)
[2019-09-28] MEDS ORDERED: Nitroglycerin TAB 0.4 MG* 0.4 MG TAB SL PRN (18:42)
--- NOTE | 2019-09-28 18:45 | PN ---
Progress Note - Progress Note Date of Service: 09/28/19 Note: Event Note: Patient developed substernal chest pressure this evening after taking lipitor. She feels this caused chest pain. She denies N/V. Was SOB but improving w/ albuterol neb. HR went up to 110, BP elevated above baseline. Lungs; diminished, clear Heart: tachy, regular EKG: Sinus tachy, LVH, PACs, no ischemic ST elevations or depressions A/P: Chest pain, may be anxiety, COPD, angina. Will try TNG SL. Serial Troponins ordered overnight. Already on aspirin, beta pranay.
[2019-09-28 23:04] LABS: Troponin I 0.03 ng/mL (<0.03)
[2019-09-29] MEDS: Albuterol/Ipratropium NEB.SOL* Albuterol 2.5 MG/Ipratropium 0.5 MG 3 ML INH SCH ×2 (01:00→07:03)
[2019-09-29] MEDS: HYDROcodone/ACETAMIN 5-325 MG* 1 TAB PO PRN ×2 (02:55→12:11)
[2019-09-29 06:10] LABS: BUN/Creatinine Ratio 35.5 (8-20); Blood Urea Nitrogen 22 mg/dL (6-24); Calcium 8.6 mg/dL (8.6-10.3); Chloride 91 mmol/L (101-111); EGFR African American 116.9 (>60); EGFR Non-African American 96.6 (>60); Glucose 91 mg/dL (70-100); Magnesium 2.3 mg/dL (1.9-2.7); Potassium 4.6 mmol/L (3.5-5.0); Sodium 135 mmol/L (135-145)
[2019-09-29] MEDS: Heparin VIAL(*) 5000 UNITS/ML VIAL (FIVE THOUSAND) SUBCUT SCH (06:10)
[2019-09-29 06:13] LABS: CO2 Carbon Dioxide 44 mmol/L (22-32)
[2019-09-29 08:03] VITALS: BP 144/61
[2019-09-29] MEDS: Diltiazem CD CAP* 180 MG PO SCH (08:57)
[2019-09-29] MEDS: Magnesium Hydroxide LIQ* 30 ML UDC PO SCH (08:57)
[2019-09-29] MEDS: Ferrous Sulfate TAB* 325 MG PO SCH (08:57)
[2019-09-29] MEDS: Aspirin EC TAB* 81 MG TAB.EC PO SCH (08:57)
[2019-09-29] MEDS: Furosemide TAB* 40 MG PO SCH (08:57)
[2019-09-29] MEDS: Docusate CAP* 100 MG PO SCH (08:57)
[2019-09-29] MEDS: Metoprolol Tartrate TAB* 50 mg PO SCH (08:57)
[2019-09-29] MEDS: Methimazole TAB* 5 MG PO SCH (08:57)
[2019-09-29 11:23] LABS: TSH (Thyroid Stimulating Horm) 3.45 mcIU/mL (0.34-5.60)
[2019-09-29 11:25] LABS: Free T4 0.98 ng/dL (0.61-1.12)
--- NOTE | 2019-09-30 12:27 | DS ---
CC: Trey Hernandez DO, [facility]; Justin Phillips DO, Cardiology DISCHARGE SUMMARY: DATE OF ADMISSION: 09/26/19 DATE OF DISCHARGE: 09/29/19 PRIMARY DIAGNOSIS: Atrial fibrillation with rapid ventricular response. SECONDARY DIAGNOSES: 1. Chronic hypercarbic respiratory failure. 2. Chronic obstructive pulmonary disease, on O2 dependence. 3. Heart failure with preserved ejection fraction. 4. Coronary artery disease, suspect with anterior wall ischemia documented in January 2018. 5. History of gastrointestinal bleed 2016, on anticoagulation. 6. Hypertension. 7. Morbid obesity. 8. Hyperthyroidism due to Graves disease, well controlled. MEDICATIONS ON DISCHARGE: 1. Methimazole 10 mg p.o. daily. 2. Metoprolol tartrate 50 mg p.o. b.i.d. 3. Acetaminophen as needed. 4. Acetazolamide 250 mg p.o. daily. 5. Albuterol nebulizer q.4 hours as needed for wheezing. 6. Albuterol/ipratropium 1 nebulizer 4 times a day. 7. Aspirin 81 mg p.o. daily. 8. Atorvastatin 20 mg p.o. q.p.m. 9. Diltiazem ER 360 mg p.o. q.p.m. 10. Docusate 100 mg p.o. b.i.d. p.r.n. 11. Iron sulfate 325 mg p.o. daily. 12. Furosemide 40 mg p.o. q.a.m. 13. Hydrocodone/acetaminophen 1 tab p.o. q.4 hours p.r.n. neck pain (7 days 21 pills provided, [employer] checked). 14. Hydrocortisone suppositories (Anusol) 25 mg AK b.i.d. p.r.n., hemorrhoids. 15. Milk of Magnesia as needed. 16. MiraLAX 17 g p.o. daily. 17. Prednisone 20 mg p.o. daily for 5 days and then 15 mg daily for 2 days and then 10 mg daily for 2 days, then 5 mg daily for 2 days, and then stop. 18. Senna 1 tablet p.o. q.h.s. CONSULTATION: Dr. Phillips, Cardiology PROCEDURES: None. HOSPITAL COURSE: A 63-year-old woman with complex cardiac history was transferred from [facility] on 09/26/19 due to need for cardiac consultation regarding atrial fibrillation with rapid ventricular response. The patient was managed with titration of her oral rate control medicines and several doses of intravenous digoxin. She did not require a diltiazem drip. Consultation was provided by Dr. Phillips who advised her on rate control and prevention of ischemia. He also noted the patient has probable coronary artery disease and need to remain on aspirin and start a statin. The patient's heart failure with preserved ejection fraction was improved with the rate control. Echocardiogram obtained on 09/27/19 showed ejection fraction of 65% to 70%, moderately increased wall thickness. No regional wall motion abnormalities. No significant valvular disease. The patient did remain on diuretics, but did not need a significant diuresis to improve her breathing. The patient does have chronic COPD with O2 dependence and chronic hypercarbia. Her carbon dioxide was 43 and 44 on metabolic panels. She remains on Diamox to reduce hypercarbia. The patient remained on telemetry and had 1 run of 7 beats of ventricular tachycardia noted. Electrolytes were rechecked and remained normal. No intervention was made to this. She did have troponin checked on admission, which was 0.02 and it went up to 0.03 after 3 hours, but then fell back to 0.02. No ischemic workup was initiated. For her hyperthyroidism, we did recheck her TSH, T4, and T3 which were all within normal limits. She was maintained on methimazole. Her COPD remained problematic with dyspnea on exertion and increased O2 requirements. With rate control, her heart failure improved and her COPD came back down to baseline. She was discharged near her baseline O2 requirement of 2 L per minute. DISPOSITION: Home. ACTIVITY: As tolerated. DIET: Low salt, low fat. STATUS: Inpatient. CONDITION: Improved. FOLLOWUP: Follow up with Dr. Hernandez within 1 week. Visiting nurse from [facility] to assess. TIME SPENT: I spent more than 45 minutes on the day of discharge with the patient and completed necessary paperwork for discharge. [id number]/[facility] #: [id number] KRISTINE
== END 2019-09-29 12:04 | disposition home or self-care (01) | DRG 309 ==
LOC: MEDTELE 12:33 → OBSVTOIN 13:45
PROVIDERS: ADMIT Hospitalist; ATTEND Internal Medicine
DX: I48.0 Paroxysmal atrial fibrillation (principal); Z68.42 Body mass index [BMI] 45.0-49.9, adult; I50.32 Chronic diastolic (congestive) heart failure; J44.1 Chronic obstructive pulmonary disease with (acute) exacerbation; J96.12 Chronic respiratory failure with hypercapnia; I11.0 Hypertensive heart disease with heart failure; E05.90 Thyrotoxicosis, unspecified without thyrotoxic crisis or storm; I47.2 Ventricular tachycardia; I25.10 Atherosclerotic heart disease of native coronary artery without angina pectoris; E66.01 Morbid (severe) obesity due to excess calories; Z88.8 Allergy status to other drugs, medicaments and biological substances; Z87.891 Personal history of nicotine dependence; Z99.81 Dependence on supplemental oxygen; Z79.82 Long term (current) use of aspirin
CPT/HCPCS: 36415; 80048; 83735; 84439; 84443; 84479; 84484; 85025; 93005; 93306; 94640; A9270-GY; J1160; J1644; J7512